=== PATIENT | female | born 1935 | race Asian ===

== ENCOUNTER 2019-04-13 05:08 | Inpatient (IN) | payer OTHER ==
[2019-04-13] MEDS ORDERED: ALBUTEROL SO4 0.083% IH SOL 2.5 MG/3 ML VIAL.NEB. NEB ONE (06:11)
[2019-04-13] MEDS ORDERED: ALBUTEROL SO4 0.042% IH SOL 1.25 MG/3 ML VIAL.NEB NEB ONE (06:11)
[2019-04-13 06:51] LABS: BASO % 1.1 % (0-2.0); EOS % 3.4 % (0-4.5); HEMATOCRIT 34.3 % (32.4-45.2); HEMOGLOBIN 11.8 GM/dL (10.7-15.3); LYMPH % 10.7 % (8-40); MCH 30.6 pg (25.7-33.7); MCHC 34.4 g/dl (32.0-36.0); MEAN PLT VOLUME 7.9 fl (7.5-11.1); NEUT % 71.8 % (42.8-82.8); PLATELET COUNT 270 K/MM3 (134-434); RBC 3.86 M/mm3 (3.60-5.2); RDW 12.7 % (11.6-15.6)
--- NOTE | 2019-04-13 07:10 | PDOC ---
Attending Attestation - Resident Resident Name: CuellarElo - ED Attending Attestation I have performed the following: I have examined & evaluated the patient, The case was reviewed & discussed with the resident, I agree w/resident's findings & plan, Exceptions are as noted - HPI HPI: 04/13/19 07:59 83yo female with hx of lung ca s/p resection in remission, copd with sob and cough. Recent travel to [place]. Pt dx with a DVT to R calf on monday - not on anticoag. States R leg pain is worse, now with increasing sob. Using her inhalers at home - spiriva, breo, albuterol nebs/inhaler. States cough started monday - her daughter started her on azithromycin for the cough on monday. Worsening sob this AM. No cp. Woke up at 4am unable to breath. No LE edema. No abd pain. No f/c. No rhinorrhea or sore throat. No n/v/d. No other complaints. - Physicial Exam PE: 04/13/19 08:04 Gen: aaox3, tachypnea heart: +s1s2 tachy lungs: coarse bs, wheezing diffusely abd: soft, nt/nd +bs ext: R calf ttp, no edema, pedal pulses intact skin: no rashes, no cellulitis - Medical Decision Making 04/13/19 07:10 I, Dr. Shruthi Bateman, DO, attest that this document has been prepared under my direction and personally reviewed by me in its entirety. I further attest, that it accurately reflects all work, treatment, procedures and medical decision -making performed by me. 04/13/19 08:05 a/p: 83yo female with copd/hx of lung ca with cough/sob -recent dvt dx- in calf, will repeat LE doppler and order CTA chest -eval for pna vs pe -will send labs -nebs, steroids for copd -will monitor and reassess -pt with mild tachy and tachypnea -PMD Dr. Oneill with Dr. Brian Pop 04/13/19 09:43 no PE no PNA will place in obs for a copd exacerbation 04/13/19 11:24 resident discussed the case with Dr. Benton who accepts pt to service tylenol given for pain Heart Score/ECG Review - ECG Intrepretation Comment:: 04/13/19 09:44 sinus at 81, t wave flattening diffusely, t wave inversions anterior leads, nl axis, lvh, no acute st changes
--- NOTE | 2019-04-13 07:12 | PDOC ---
History of Present Illness - General Chief Complaint: Shortness of Breath Stated Complaint: DIFFICULTY BREATHING Time Seen by Provider: 04/13/19 07:03 Past History - Past Medical History Allergies/Adverse Reactions: Allergies Allergy/AdvReac Type Severity Reaction Status Date / Time No Known Allergies Allergy Verified 04/13/19 05:10 Home Medications: Ambulatory Orders Aspirin [ASA -] 81 mg PO DAILY 01/04/16 Budesonide/Formeterol Fumarate [SYMBICORT 160/4.5mcg -] 1 inh PO DAILY #1 inhaler 01/12/16 Levothyroxine [Synthroid -] 50 mcg PO DAILY@0700 #30 tablet 01/12/16 Losartan Potassium [Cozaar -] 50 mg PO DAILY #30 tablet 01/12/16 Rosuvastatin [Crestor -] 10 mg PO HS #30 tablet 01/12/16 Ranitidine HCl [Zantac] 150 mg PO PRN PRN 09/01/16 Tiotropium [place] [Spiriva] 1 inh PO PRN PRN 09/01/16 Oxycodone HCl/Acetaminophen [Percocet 5-325 mg Tablet] 1 tab PO Q6H PRN #30 tablet MDD 6 09/02/16 Hydrochlorothiazide [Hctz -] 12.5 mg PO DAILY 04/13/19 Asthma: Yes COPD: Yes ("LEFT PARTIAL LUNG REMOVAL) Diabetes: Yes HTN: Yes Hypercholesterolemia: Yes Thyroid Disease: Yes - Surgical History Lung Surgery: Yes (LEFT-PARTIAL REMOVAL) - Immunization History Td Vaccination: Yes TDAP Vaccination: Yes Immunization Up to Date: Yes - Suicide/Smoking/Psychosocial Hx Smoking History: Never smoked Have you smoked in the past 12 months: No Information on smoking cessation initiated: No Hx Alcohol Use: No Drug/Substance Use Hx: No Substance Use Type: None Hx Substance Use Treatment: No *Physical Exam - Vital Signs Last Vital Signs Temp Pulse Resp BP Pulse Ox 98.3 F 85 22 H 155/85 95 04/13/19 05:23 04/13/19 05:23 04/13/19 05:23 04/13/19 05:23 04/13/19 05:23 ED Treatment Course - LABORATORY CBC & Chemistry Diagram: 04/13/19 06:16 04/13/19 06:16 - ADDITIONAL ORDERS Additional order review: 04/13/19 06:16 RBC 3.86 MCV 89.0 MCHC 34.4 RDW 12.7 MPV 7.9 Neutrophils % 71.8 Lymphocytes % 10.7 D Monocytes % 13.0 H D Eosinophils % 3.4 D Basophils % 1.1 D - Medications Given in the ED: ED Medications Discontinued Medications Generic Name Dose Route Start Last Admin Trade Name Freq PRN Reason Stop Dose Admin Albuterol Sulfate 2 amp 04/13/19 06:11 04/13/19 06:16 Ventolin 0.042trength) - NEB 04/13/19 06:12 2 amp ONCE ONE Administration *DC/Admit/Observation/Transfer - Referrals Referrals: Brian Pop MD [Primary Care Provider] - - Patient Instructions - Post Discharge Activity
--- NOTE | 2019-04-13 07:14 | PDOC ---
History of Present Illness - General Chief Complaint: Shortness of Breath Stated Complaint: DIFFICULTY BREATHING Time Seen by Provider: 04/13/19 07:03 History Source: Patient Exam Limitations: No Limitations - History of Present Illness Initial Comments: 04/13/19 07:04 83YOF with h/o lung CA (s/p thoracotomy with LLL lobectomy), COPD (on 3 LPM home O2 prn), frequent bronchitis/PNA, CAD, HTN, HLD, GI bleed, TIA, and cholecystectomy who p/w SOB, cough, and RLE cramping/swelling. She had a flight back to [place] from [place] about 11 days ago, within hours she had the onset of RLE swelling/cramping, went to the hospital and had a Doppler which showed a DVT. She started having the cough and SOB four days ago, accompanied by substernal chest pressure only when she coughs. She denies any additional chest or abdominal pain. Started a Z-pack on Monday without improvement since then. Denies f/c/n/v/d/c, lightheadedness, dizziness, YAN, neck pain, back pain, n/t/w focally, etc. Says this feels similar to her prior flares of bronchitis/PNA but not exactly the same. Past History - Past Medical History Allergies/Adverse Reactions: Allergies Allergy/AdvReac Type Severity Reaction Status Date / Time No Known Allergies Allergy Verified 04/13/19 05:10 Home Medications: Ambulatory Orders Aspirin [ASA -] 81 mg PO DAILY 01/04/16 Budesonide/Formeterol Fumarate [SYMBICORT 160/4.5mcg -] 1 inh PO DAILY #1 inhaler 01/12/16 Levothyroxine [Synthroid -] 50 mcg PO DAILY@0700 #30 tablet 01/12/16 Losartan Potassium [Cozaar -] 50 mg PO DAILY #30 tablet 01/12/16 Rosuvastatin [Crestor -] 10 mg PO HS #30 tablet 01/12/16 Ranitidine HCl [Zantac] 150 mg PO PRN PRN 09/01/16 Tiotropium [place] [Spiriva] 1 inh PO PRN PRN 09/01/16 Oxycodone HCl/Acetaminophen [Percocet 5-325 mg Tablet] 1 tab PO Q6H PRN #30 tablet MDD 6 09/02/16 Hydrochlorothiazide [Hctz -] 12.5 mg PO DAILY 04/13/19 Asthma: Yes COPD: Yes ("LEFT PARTIAL LUNG REMOVAL) Diabetes: Yes HTN: Yes Hypercholesterolemia: Yes Thyroid Disease: Yes - Surgical History Lung Surgery: Yes (LEFT-PARTIAL REMOVAL) - Immunization History Td Vaccination: Yes TDAP Vaccination: Yes Immunization Up to Date: Yes - Suicide/Smoking/Psychosocial Hx Smoking History: Never smoked Have you smoked in the past 12 months: No Information on smoking cessation initiated: No Hx Alcohol Use: No Drug/Substance Use Hx: No Substance Use Type: None Hx Substance Use Treatment: No Review of Systems - Review of Systems Able to Perform ROS?: Yes Comments:: 04/13/19 07:33 GEN: malaise, no fever, chills, generalized weakness, or weight change HEENT: no ear pain, sore throat, vision change, or eye pain CV: chest pressure, no palpitations, lightheadedness, syncope, leg edema RESP: cough, wheezing, SOB GI: no abdominal pain, nausea, vomiting, diarrhea, constipation, or white/black/ bloody stool : no dysuria, hematuria, incontinence, retention, bleeding, or discharge MSK: no neck/back pain, muscle weakness/pain, or joint swelling/pain NEURO: no headache, seizure, vertigo, numbness, tingling, or focal weakness PSYCH: no substance use, no behavior change SKIN: no jaundice, no rash ROS otherwise negative except as noted in HPI *Physical Exam - Vital Signs Last Vital Signs Temp Pulse Resp BP Pulse Ox 98.3 F 85 22 H 155/85 95 04/13/19 05:23 04/13/19 05:23 04/13/19 05:23 04/13/19 05:23 04/13/19 05:23 - Physical Exam Comments: 04/13/19 07:34 GENERAL: nontoxic appearing, A/Ox4, no distress, answers questions appropriately , tachypneic, occasional cough which sounds productive HEENT: PERRLA, EOMI, moist mucous membranes NECK/BACK: no midline ttp, no spinal stepoff or deformity, no hematoma, full ROM , neck supple CARDIOVASCULAR: slightly rapid regular rate, normal S1S2, 1/6 systolic murmur, strong peripheral pulses, capillary refill <2 seconds, extremities wwp, 2+ RLE pitting edema and 1+ LLE pitting edema LUNGS/RESPIRATORY: mild respiratory distress, b/l diffuse crackles, b/l expiratory wheezes GI/ABDOMEN: symmetric [id number], normoactive BS, soft, no ttp, no midline pulsatile masses : no CVA tenderness EXTREMITIES: no muscle atrophy, no acute deformity, no palpable cord, no calf tenderness SKIN: warm and dry, no pallor, no jaundice, no rash, no bruising, no skin breakdown, no cuts, no lesions NEUROLOGICAL: GCS 15, CN II-XII grossly intact, 5/5 strength proximally and distally, no facial droop ED Treatment Course - LABORATORY CBC & Chemistry Diagram: 04/13/19 06:16 04/13/19 06:16 - ADDITIONAL ORDERS Additional order review: 04/13/19 06:16 RBC 3.86 MCV 89.0 MCHC 34.4 RDW 12.7 MPV 7.9 Neutrophils % 71.8 Lymphocytes % 10.7 D Monocytes % 13.0 H D Eosinophils % 3.4 D Basophils % 1.1 D - Medications Given in the ED: ED Medications Discontinued Medications Generic Name Dose Route Start Last Admin Trade Name Freq PRN Reason Stop Dose Admin Albuterol Sulfate 2 amp 04/13/19 06:11 04/13/19 06:16 Ventolin 0.042trength) - NEB 04/13/19 06:12 2 amp ONCE ONE Administration Medical Decision Making - Medical Decision Making 04/13/19 07:29 Pt p/w SOB, cough, chest discomfort, and RLE pain/swelling with DVT detected via Doppler on 04/03/19. Initial Vital Signs Temp Pulse Resp BP Pulse Ox 98.3 F 85 22 H 155/85 95 04/13/19 05:23 04/13/19 05:23 04/13/19 05:23 04/13/19 05:23 04/13/19 05:23 Exam: As noted in Physical Exam section. Patient tachy to 100 at the time of my exam. DDX IBNLT: most likely PNA, bronchitis, viral URI (e.g. influenza), COPD exacerbation, CHF, other lung disease. Also a very real possibility is PE, and given her recently diagnosed DVT this must be ruled out. Also less likely but considered are ACS, pericarditis, etc. W/U ordered: Chest CTA CXR EKG Labs as noted below [place] ordered: [facility] Solumedrol Prashant EKG: Reviewed; results as noted in ECG Review section. Laboratory Tests 04/13/19 04/13/19 06:16 06:16 WBC 6.0 RBC 3.86 Hgb 11.8 Hct 34.3 MCV 89.0 MCH 30.6 MCHC 34.4 RDW 12.7 Plt Count 270 MPV 7.9 Absolute Neuts (auto) 4.3 Neutrophils % 71.8 Lymphocytes % 10.7 D Monocytes % 13.0 H D Eosinophils % 3.4 D Basophils % 1.1 D Nucleated RBC % 0 Sodium 135 L Potassium 3.9 Chloride 100 Carbon Dioxide 28 Anion Gap 7 L BUN 13 Creatinine 0.9 Est GFR (CKD-EPI)AfAm 69.50 Est GFR (CKD-EPI)NonAf 59.96 Random Glucose 116 H Calcium 8.4 L Total Bilirubin 0.8 AST 23 ALT 23 Alkaline Phosphatase 102 Creatine Kinase 174 Creatine Kinase Index 0.8 CK-MB (CK-2) 1.4 Troponin I < 0.02 B-Natriuretic Peptide 318.3 Total Protein 6.[address]/CHEST CTA Chest CT angiography Clinical information: dyspnea, cough; known DVT; evaluate for pulmonary embolism Multiplanar imaging was performed following the intravenous administration of nonionic contrast. No discrete pulmonary embolus is noted. There is no evidence of pneumothorax, infiltrate or pleural effusion. No definite interval change is noted in comparison to a prior CT exam of 09/03/2018. Status post left thoracotomy with somewhat diminished volume of the left chest. There is mild elevation of the left diaphragm. A stable noncalcified 0.4 cm subpleural nodule is noted within the right lower lobe laterally ( transaxial image 46). This finding also appears unchanged in comparison to a CT study of 08/18/2016. No discrete lymphadenopathy is noted. There is no definite cardiac enlargement. No pericardial effusion is seen. The trachea and central bronchi appear unremarkable. There is no aortic aneurysm. The osseous structures demonstrate no gross evidence of acute pathology or disease. Impression: No CT evidence of pulmonary embolism or other acute intrathoracic pathology. Status post left thoracotomy. Stable 0.4 cm right lower lobe pulmonary nodule. RAD/CHEST X-RAY PORTABLE* Chest: Shortness of breath. A single AP view of the chest has been submitted. There are clear lungs, prominent knob, normal hilar and enlarged heart. There is an elevated left hemidiaphragm. There is a sharp. The bones and soft tissues are intact. Correlation recommended. Please see CT report from 04/13/2019 at 0827 hours. US/DUPLEX VASCUL US-2LEGS Bilateral lower extremity venous ultrasound Clinical information given: RLE pain/swelling, recent flight, dyspnea; known DVT on 2018 The exam was performed utilizing compression, grayscale, color flow and doppler sonography. No prior venous imaging studies are available at this facility for direct comparison. The current exam demonstrates no sonographic evidence of deep vein thrombosis. If there is clinical concern for possible isolated calf DVT or if there is a clinical diagnosis of uncomplicated superficial thrombophlebitis, then correlation with close follow up sonography is suggested. There is no obvious popliteal cyst. Impression: No DVT is identified involving either leg. Correlate with the results of prior imaging studies if available from a different facility. The Pt is unsafe for discharge at this time given continued SOB and high-risk history. They require further hospital observation, workup, and treatment. Call placed to Dr. Benton (admitting for [facility] Blank Decision to Admit order is placed per ED protocol. I spoke with Dr. Benton, in agreement Pt to be admitted, full admission to med/ surg. Decision to Admit order corrected with Dr. Benton's name. Vital Signs Temperature 98.9 F 04/13/19 12:03 Pulse Rate 86 04/13/19 12:03 Respiratory Rate 20 04/13/19 12:03 Blood Pressure 133/67 04/13/19 12:03 O2 Sat by Pulse Oximetry (%) 99 04/13/19 12:03 *DC/Admit/Observation/Transfer Diagnosis at time of Disposition: SOB (shortness of breath), Cough - Discharge Dispostion Condition at time of disposition: Guarded Decision to Admit order: Yes - Referrals - Patient Instructions - Post Discharge Activity
[2019-04-13 07:26] LABS: ALBUMIN 3.5 g/dl (3.4-5.0); ALK PHOS 102 U/L (45-117); ANION GAP 7 MMOL/L (8-16); BILIRUBIN,TOTAL 0.8 mg/dL (0.2-1); BLOOD UREA NITROGEN 13 mg/dL (7-18); CALCIUM 8.4 mg/dL (8.5-10.1); CHLORIDE 100 mmol/L (98-107); CO2 28 mmol/L (21-32); CREATININE 0.9 mg/dL (0.55-1.3); GLUCOSE,RANDOM 116 mg/dL (74-106); POTASSIUM 3.9 mmol/L (3.5-5.1); SGOT/AST 23 U/L (15-37); SGPT/ALT 23 U/L (13-61); SODIUM 135 mmol/L (136-145); TOT PROT 6.6 g/dl (6.4-8.2)
[2019-04-13] MEDS ORDERED: ACETAMINOPHEN 1000 MG/100 ML VIAL (NON FORMULARY) IVPB ONE (11:24)
[2019-04-13] MEDS ORDERED: SODIUM CHLORIDE 0.9% 1000 ML INFUS.BAG IV ONE (11:24)
[2019-04-13] MEDS ORDERED: methylPREDNISolone NA SUCC 125 MG/2 ML VIAL IVPB ONE (11:24)
[2019-04-13] MEDS ORDERED: ACETAMINOPHEN INJECTION 100 ML IVPB ONE (11:27)
[2019-04-13] MEDS ORDERED: methylPREDNISolone NA SUCC 125 MG/2 ML VIAL ONE (11:28)
[2019-04-13] MEDS ORDERED: ALBUTEROL SO4 2.5/IPRATROPIUM 0.5 INH SOL 3 ML VIAL.NEB. NEB ONE ×2 (11:29→11:32)
[2019-04-13 11:55] LABS: N-TERMINAL BNP 318.3 pg/ml (5-450)
--- NOTE | 2019-04-13 15:28 | EKG ---
Test Reason : Blood Pressure : / mmHG Vent. Rate : 081 BPM Atrial Rate : 081 BPM P-R Int : 132 ms QRS Dur : 072 ms QT Int : 400 ms P-R-T Axes : 064 -03 007 degrees QTc Int : 464 ms NORMAL SINUS RHYTHM POSSIBLE LEFT ATRIAL ENLARGEMENT LEFT VENTRICULAR HYPERTROPHY T WAVE ABNORMALITY, CONSIDER ANTERIOR ISCHEMIA ABNORMAL ECG WHEN COMPARED WITH ECG OF 04-JAN-2016 18:49, NO SIGNIFICANT CHANGE WAS FOUND Confirmed by MD Devonte, Chris ([id number]) on 04/13/2019 3:28:26 PM Referred By: Confirmed By:Chris Whitney MD
[2019-04-13] MEDS ORDERED: PATIENT'S OWN MEDICATION (NON-FORMULARY) (Tiotropium Bromide [Spiriva] 1 INH) PO PRN (19:02)
[2019-04-13] MEDS: HEPARIN NA (PORCINE) 5,000 UNITS/ML 1ML VIAL SQ SCH (21:27)
[2019-04-13] MEDS: ROSUVASTATIN CA 10 MG TABLET (FP) PO SCH (21:27)
[2019-04-13] MEDS: ASPIRIN 81 MG CHEWABLE TABLETS PO SCH (21:28)
[2019-04-13] MEDS: ALBUTEROL SO4 2.5/IPRATROPIUM 0.5 INH SOL 3 ML VIAL.NEB. NEB PRN (22:05)
--- NOTE | 2019-04-13 23:41 | HP ---
Admitting History and Physical - Past Medical History [employer]: Yes: TIA (10 years ago). No: Seizure Cardiovascular: Yes: CAD, HTN, Hyperlipdemia. No: NC Pulmonary: Yes: Cancer, COPD, O2 Dependent Hepatobiliary: Yes: Cholelithiasis, Cholecystitis ...: No Endocrine: No: Diabetes Mellitus - Past Surgical History Past Surgical History: Yes: Cataract Removal, Thoracotomy (left lower lobectomy) - Smoking History Smoking history: Never smoked Have you smoked in the past 12 months: No - Alcohol/Substance Use Hx Alcohol Use: No History of Substance Use: reports: None - Social History ADL: Independent History of Recent Travel: Yes (returned from [place] end of July) Home Medications - Allergies Allergies/Adverse Reactions: Allergies Allergy/AdvReac Type Severity Reaction Status Date / Time No Known Allergies Allergy Verified 04/13/19 05:10 - Home Medications Home Medications: Ambulatory Orders Aspirin [ASA -] 81 mg PO DAILY 01/04/16 Budesonide/Formeterol Fumarate [SYMBICORT 160/4.5mcg -] 1 inh PO DAILY #1 inhaler 01/12/16 Levothyroxine [Synthroid -] 50 mcg PO DAILY@0700 #30 tablet 01/12/16 Losartan Potassium [Cozaar -] 50 mg PO DAILY #30 tablet 01/12/16 Rosuvastatin [Crestor -] 10 mg PO HS #30 tablet 01/12/16 Ranitidine HCl [Zantac] 150 mg PO PRN PRN 09/01/16 Tiotropium [place] [Spiriva] 1 inh PO PRN PRN 09/01/16 Oxycodone HCl/Acetaminophen [Percocet 5-325 mg Tablet] 1 tab PO Q6H PRN #30 tablet MDD 6 09/02/16 Hydrochlorothiazide [Hctz -] 12.5 mg PO DAILY 04/13/19 Family Disease History - Family Disease History Family Disease History: Diabetes: Daughter, Heart Disease: Daughter, CA: Sister Physical Examination Vital Signs: Vital Signs Temperature 97.7 F 04/13/19 22:17 Pulse Rate 89 04/13/19 22:17 Respiratory Rate 20 04/13/19 22:17 Blood Pressure 148/85 04/13/19 22:17 O2 Sat by Pulse Oximetry (%) 98 04/13/19 21:00 Labs: CBC, BMP 04/13/19 06:16 04/13/19 06:16
[2019-04-14] MEDS: BUDESONIDE/FORMETEROL FUMARATE 160/4.5 mcg INHALER IH SCH ×3 (00:23→21:40)
[2019-04-14] MEDS: methylPREDNISolone NA SUCC 40 MG/1 ML VIAL IVPUSH SCH ×3 (01:50→17:00)
[2019-04-14] MEDS: LEVOTHYROXINE NA 50 MCG TABLET (FP) PO SCH (06:12)
--- NOTE | 2019-04-14 07:57 | CON.CARD ---
Consult Consult Specialty:: Cardiology (Coverage for Dr. Capone and Wilma) Referred by:: Dr. Benton Reason for Consultation:: Cardiac evaluation - History of Present Illness Chief Complaint: Shortness of breath History of Present Illness: Patient is an 83 year old female with underlying history of lung CA s/p lobectomy and radiation therapy 10 years ago and in remission, underlying COPD who presents with shortness of breath and cough. She also has history of HTN, hypercholesterolemia, ? CAD and hypothyroidism. She recently traveled from [place] and thus she had Chest CT and LE Doppler this admission to rule out PTE and DVT. Chest CT was negative for pulmonary embolism and LE Doppler was also negative for DVT. ER Medical record indicates diagnosis of DVT in the right calf last week, but when asked she denies any history of DVT. Currently, she denies chest pain or palpitations. She denies paroxysmal nocturnal dyspnea or orthopnea. She denies fever or chills. She denies nausea, vomiting, diarrhea or abdominal pain. She denies headache or lightheadedness. - History Source History Provided By: Patient, Medical Record Limitations to Obtaining History: No Limitations - Past Medical History [employer]: Yes: TIA (10 years ago) Cardio/Vascular: Yes: CAD, HTN, Hyperlipdemia Pulmonary: Yes: Cancer, COPD, O2 Dependent Hepatobiliary: Yes: Cholelithiasis, Cholecystitis Endocrine: No: Diabetes Mellitus - Past Surgical History Past Surgical History: Yes: Thoracotomy (left lower lobectomy) - Alcohol/Substance Use Hx Alcohol Use: No History of Substance Use: reports: None - Smoking History Smoking history: Never smoked Have you smoked in the past 12 months: No - Social History ADL: Independent History of Recent Travel: Yes (returned from [place] end of July) Home Medications - Allergies Allergies/Adverse Reactions: Allergies Allergy/AdvReac Type Severity Reaction Status Date / Time No Known Allergies Allergy Verified 04/13/19 05:10 - Home Medications Home Medications: Ambulatory Orders Aspirin [ASA -] 81 mg PO DAILY 01/04/16 Budesonide/Formeterol Fumarate [SYMBICORT 160/4.5mcg -] 1 inh PO DAILY #1 inhaler 01/12/16 Levothyroxine [Synthroid -] 50 mcg PO DAILY@0700 #30 tablet 01/12/16 Losartan Potassium [Cozaar -] 50 mg PO DAILY #30 tablet 01/12/16 Rosuvastatin [Crestor -] 10 mg PO HS #30 tablet 01/12/16 Ranitidine HCl [Zantac] 150 mg PO PRN PRN 09/01/16 Tiotropium [place] [Spiriva] 1 inh PO PRN PRN 09/01/16 Oxycodone HCl/Acetaminophen [Percocet 5-325 mg Tablet] 1 tab PO Q6H PRN #30 tablet MDD 6 09/02/16 Hydrochlorothiazide [Hctz -] 12.5 mg PO DAILY 04/13/19 hydrALAZINE HCL tab PO 04/14/19 Family Disease History - Family Disease History Family Disease History: Diabetes: Daughter, Heart Disease: Daughter, CA: Sister (Breast CA) Other Family History: FH of HTN Review of Systems - Review of Systems Constitutional: denies: Chills, Fever Cardiovascular: reports: Shortness of Breath. denies: Chest Pain, Palpitations Respiratory: reports: Cough, SOB, SOB on Exertion, Wheezing. denies: Hemoptysis , Orthopnea, PND Gastrointestinal: denies: Abdominal Pain, Constipation, Diarrhea, Melena, Nausea , Rectal Bleeding, Vomiting Genitourinary: denies: Dysuria, Hematuria Musculoskeletal: denies: Back Pain, Joint Pain Neurological: denies: Dizziness, Headache, Seizure, Syncope Vital Signs: Vital Signs Temperature 98.2 F 04/14/19 06:46 Pulse Rate 83 04/14/19 06:46 Respiratory Rate 20 04/14/19 06:46 Blood Pressure 137/78 04/14/19 06:46 O2 Sat by Pulse Oximetry (%) 98 04/13/19 21:00 Eyes: Yes: PERRL HENT: Yes: Atraumatic Neck: Yes: Supple Respiratory: Yes: Diminished, SOB, Wheezes Gastrointestinal: Yes: Normal Bowel Sounds, Soft. No: Tenderness Cardiovascular: Yes: Regular Rate and Rhythm JVD: No Carotid Bruit: No PMI: Non-Displaced Heart Sounds: Yes: S1, S2 Edema: No - Other Data Labs, Other Data: CBC, BMP 04/13/19 06:16 04/13/19 06:16 Troponin, BNP 04/13/19 04/13/19 06:16 21:50 Troponin I < 0.02 < 0.02 B-Natriuretic Peptide 318.3 Laboratory Results - last 24 hr 04/13/19 04/13/19 06:16 21:50 Sodium 135 L Potassium 3.9 Chloride 100 Carbon Dioxide 28 Anion Gap 7 L BUN 13 Creatinine 0.9 Est GFR (CKD-EPI)AfAm 69.50 Est GFR (CKD-EPI)NonAf 59.96 Random Glucose 116 H Calcium 8.4 L Total Bilirubin 0.8 AST 23 ALT 23 Alkaline Phosphatase 102 Creatine Kinase 174 245 H Creatine Kinase Index 0.8 0.7 CK-MB (CK-2) 1.4 1.9 Troponin I < 0.02 < 0.02 B-Natriuretic Peptide 318.3 Total Protein 6.6 Albumin 3.5 NSR T abnormality, anterior ischemia Problem List - Problems (1) CAD (coronary artery disease) Code(s): I25.10 - ATHSCL HEART DISEASE OF [place] CORONARY ARTERY W/O ANG PCTRS (2) COPD exacerbation Code(s): J44.1 - CHRONIC OBSTRUCTIVE PULMONARY DISEASE W (ACUTE) EXACERBATION (3) Diastolic CHF Code(s): I50.30 - UNSPECIFIED DIASTOLIC (CONGESTIVE) HEART FAILURE (4) H/O: lung cancer Code(s): Z85.118 - PERSONAL HISTORY OF MALIGNANT NEOPLASM OF BRONCHUS AND LUNG (5) HLD (hyperlipidemia) Code(s): E78.5 - HYPERLIPIDEMIA, UNSPECIFIED Qualifiers: Hyperlipidemia type: pure hypercholesterolemia Qualified Code(s): E78.00 - Pure hypercholesterolemia, unspecified; E78.0 - Pure hypercholesterolemia (6) HTN (hypertension) Code(s): I10 - ESSENTIAL (PRIMARY) HYPERTENSION Qualifiers: Hypertension type: essential hypertension Qualified Code(s): I10 - Essential (primary) hypertension (7) Hypothyroidism Code(s): E03.9 - HYPOTHYROIDISM, UNSPECIFIED Assessment/Plan 1. Clinical presentation suggests COPD exacerbation 2. History of lung CA s/p lobectomy 3. HTN 4. Hypercholesterolemia 5. Hypothyroidism PLAN: 1. Troponins are negative 2. Work up rules out DVT or PE 3. Continue steroid taper, bronchodilators, O2 as needed 4. Continue Losartan 50 mg QD 5. Continue Rosuvastatin 10 mg QD 6. ASA 81 mg QD 7. DVT prophylaxis 8. Pulmonary follow up Further plans are to follow Donald Ortiz MD
[2019-04-14 08:55] LABS: BASO % 0.1 % (0-2.0); HEMATOCRIT 35.8 % (32.4-45.2); LYMPH % 7.8 % (8-40); MCH 30.2 pg (25.7-33.7); MCHC 33.4 g/dl (32.0-36.0); MEAN CELL VOLUME 90.5 fl (80-96); MEAN PLT VOLUME 7.8 fl (7.5-11.1); MONO % 1.7 % (3.8-10.2); NEUT % 90.4 % (42.8-82.8); PLATELET COUNT 266 K/MM3 (134-434); RBC 3.96 M/mm3 (3.60-5.2); RDW 13.2 % (11.6-15.6); WHITE BLOOD COUNT 6.8 K/mm3 (4.0-10.0)
[2019-04-14 09:24] LABS: ALBUMIN 3.4 g/dl (3.4-5.0); BILIRUBIN,TOTAL 0.7 mg/dL (0.2-1); CALCIUM 8.4 mg/dL (8.5-10.1); CREATININE 0.8 mg/dL (0.55-1.3); TOT PROT 6.5 g/dl (6.4-8.2)
[2019-04-14] MEDS ORDERED: PATIENT'S OWN MEDICATION (NON-FORMULARY) (Tiotropium Bromide [Spiriva] 1 INH) PO SCH (10:00)
[2019-04-14] MEDS ORDERED: BUDESONIDE/FORMETEROL FUMARATE 160/4.5 mcg INHALER IH SCH ×2 (10:00)
[2019-04-14] MEDS: LOSARTAN POTASSIUM 50 MG TABLET (FP) PO SCH (10:09)
[2019-04-14] MEDS: ASPIRIN 81 MG CHEWABLE TABLETS PO SCH (10:09)
[2019-04-14] MEDS: FUROSEMIDE 40 MG/4 ML INJECTABLE VIAL IVPUSH SCH (10:09)
[2019-04-14] MEDS: TIOTROPIUM BROMIDE 2.5 MCG (SPIRIVA) RESPIMAT INHALER IH SCH (10:10)
[2019-04-14] MEDS: HEPARIN NA (PORCINE) 5,000 UNITS/ML 1ML VIAL SQ SCH ×2 (10:11→21:40)
--- NOTE | 2019-04-14 10:33 | CON.PULM ---
Consult Consult Specialty:: PULM/CCM Referred by:: CRISTIANE Reason for Consultation:: SOB - History of Present Illness Chief Complaint: SOB History of Present Illness: 83 F, known to our service from pervious admissions and outpatient follow up. Stage I NSCLC of the LLL that was successfully resected about 10 years ago. Did receive adjuvant RT. Known COPD maintained on Breo and Spiriva. Increased congested cough and JOHNS since Monday. Recent travel from [place]. Relatives visiting from [place] but no specific sick contacts. No hemoptysis or night sweats. Took a Zpack starting on Monday. CTA: no PE. Stable 4 mm subpleural nodule in the RLL stable sy=vik 08/18/2016. 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 No: Asthma, Pulmonary Embolus, Pulmonary Fibrosis, Sleep Apnea Hepatobiliary: Yes: Cholelithiasis, Cholecystitis ...: No Endocrine: No: Diabetes Mellitus - Past Surgical History Past Surgical History: Yes: Thoracotomy (left lower lobectomy) - Alcohol/Substance Use Hx Alcohol Use: No History of Substance Use: reports: None - Smoking History Smoking history: Never smoked Have you smoked in the past 12 months: No - Social History ADL: Independent History of Recent Travel: Yes (returned from [place] end of July) Home Medications - Allergies Allergies/Adverse Reactions: Allergies Allergy/AdvReac Type Severity Reaction Status Date / Time No Known Allergies Allergy Verified 04/13/19 05:10 - Home Medications Home Medications: Ambulatory Orders Aspirin [ASA -] 81 mg PO DAILY 01/04/16 Budesonide/Formeterol Fumarate [SYMBICORT 160/4.5mcg -] 1 inh PO DAILY #1 inhaler 01/12/16 Levothyroxine [Synthroid -] 50 mcg PO DAILY@0700 #30 tablet 01/12/16 Losartan Potassium [Cozaar -] 50 mg PO DAILY #30 tablet 01/12/16 Rosuvastatin [Crestor -] 10 mg PO HS #30 tablet 01/12/16 Ranitidine HCl [Zantac] 150 mg PO PRN PRN 09/01/16 Tiotropium [place] [Spiriva] 1 inh PO PRN PRN 10/13/16 Oxycodone HCl/Acetaminophen [Percocet 5-325 mg Tablet] 1 tab PO Q6H PRN #30 tablet MDD 6 09/02/16 Hydrochlorothiazide [Hctz -] 12.5 mg PO DAILY 04/13/19 hydrALAZINE HCL tab PO 04/14/19 Family Disease History - Family Disease History Family Disease History: Diabetes: Daughter, Heart Disease: Daughter, CA: Sister (Breast CA) Other Family History: FH of HTN Review of Systems - Review of Systems Constitutional: reports: Malaise. denies: Chills, Fever, Night Sweats, Unintentional Wgt. Loss Eyes: reports: No Symptoms HENT: reports: No Symptoms Neck: reports: No Symptoms Cardiovascular: reports: Shortness of Breath. denies: Chest Pain, Edema, Palpitations Respiratory: reports: Cough, SOB, SOB on Exertion, Wheezing. denies: Hemoptysis , Snoring Gastrointestinal: reports: No Symptoms Genitourinary: reports: No Symptoms Breasts: reports: No Symptoms Reported Musculoskeletal: reports: No Symptoms Integumentary: reports: No Symptoms Neurological: reports: No Symptoms Endocrine: reports: No Symptoms Hematology/Lymphatic: reports: No Symptoms Psychiatric: reports: No Symptoms Physical Exam Vital Sings: Vital Signs Temperature 98.2 F 04/14/19 06:46 Pulse Rate 83 04/14/19 06:46 Respiratory Rate 20 04/14/19 06:46 Blood Pressure 137/78 04/14/19 06:46 O2 Sat by Pulse Oximetry (%) 98 04/13/19 21:00 Constitutional: Yes: No Distress, Calm Eyes: Yes: Conjunctiva Clear, EOM Intact HENT: Yes: Atraumatic, Normocephalic Neck: Yes: Supple, Trachea Midline Cardiovascular: Yes: Regular Rate and Rhythm Respiratory: Yes: Cough, Diminished, Rhonchi, SOB on Exertion, Wheezes. No: Accessory Muscle Use, Rales, SOB, Stridor, Tachypnea ...Inspection: Yes: WNL ...Clubbing: No Gastrointestinal: Yes: Normal Bowel Sounds, Soft Renal/: Yes: WNL Musculoskeletal: Yes: WNL Extremities: Yes: WNL Edema: No Peripheral Pulses WNL: Yes Integumentary: Yes: WNL Neurological: Yes: WNL, Alert, Oriented ...Motor Strength: WNL Psychiatric: Yes: WNL, Alert, Oriented Labs: CBC, BMP 04/14/19 08:00 04/14/19 08:00 Imaging - Results Chest X-ray: Report Reviewed, Image Reviewed Cat Scan: Report Reviewed, Image Reviewed Problem List - Problems (1) Lung nodule < 6cm on CT Code(s): R91.1 - SOLITARY PULMONARY NODULE (2) Cough Code(s): R05 - COUGH (3) Hypothyroidism Code(s): E03.9 - HYPOTHYROIDISM, UNSPECIFIED (4) SOB (shortness of breath) Code(s): R06.02 - SHORTNESS OF BREATH (5) CAD (coronary artery disease) Code(s): I25.10 - ATHSCL HEART DISEASE OF [place] CORONARY ARTERY W/O ANG PCTRS (6) COPD exacerbation Code(s): J44.1 - CHRONIC OBSTRUCTIVE PULMONARY DISEASE W (ACUTE) EXACERBATION (7) Diabetes Code(s): E11.9 - TYPE 2 DIABETES MELLITUS WITHOUT COMPLICATIONS (8) H/O: lung cancer Code(s): Z85.118 - PERSONAL HISTORY OF MALIGNANT NEOPLASM OF BRONCHUS AND LUNG (9) HLD (hyperlipidemia) Code(s): E78.5 - HYPERLIPIDEMIA, UNSPECIFIED Qualifiers: Hyperlipidemia type: pure hypercholesterolemia Qualified Code(s): E78.00 - Pure hypercholesterolemia, unspecified; E78.0 - Pure hypercholesterolemia (10) HTN (hypertension) Code(s): I10 - ESSENTIAL (PRIMARY) HYPERTENSION Qualifiers: Hypertension type: essential hypertension Qualified Code(s): I10 - Essential (primary) hypertension Assessment/Plan Short course of Medrol BD TX O2 as needed No smoking reenforced VTE prophylaxis Would monitor off ABX Will follow: Hopefully if improved can D/C home tomorrow Thank you. Dr Andres
[2019-04-14] MEDS: ALBUTEROL SO4 0.083% IH SOL 2.5 MG/3 ML VIAL.NEB. NEB SCH ×2 (13:51→19:34)
[2019-04-14] MEDS: ROSUVASTATIN CA 10 MG TABLET (FP) PO SCH (21:40)
--- NOTE | 2019-04-14 22:47 | PN ---
Progress Note, Physician - Current Medication List Current Medications: Active Medications Albuterol Sulfate (Ventolin 0.083% Nebulizer Soln -) 1 amp NEB RTID [facility] Last Admin: 04/14/19 19:34 Dose: 1 amp Albuterol/Ipratropium (Duoneb -) 1 amp NEB Q6H PRN PRN Reason: SHORTNESS OF BREATH Last Admin: 04/13/19 22:05 Dose: 1 amp Aspirin (Asa -) 81 mg PO DAILY [facility] Last Admin: 04/14/19 10:09 Dose: 81 mg Budesonide/Formoterol Fumarate (Symbicort 160/4.5mcg -) 1 puff IH BID [facility] Last Admin: 04/14/19 21:40 Dose: 1 puff Furosemide (Lasix Injection -) 20 mg IVPUSH DAILY [facility] Last Admin: 04/14/19 10:09 Dose: 20 mg Heparin Sodium (Porcine) (Heparin -) 5,000 unit SQ BID [facility] Last Admin: 04/14/19 21:40 Dose: Not Given Levothyroxine Sodium (Synthroid -) 50 mcg PO DAILY@0700 [facility] Last Admin: 04/14/19 06:12 Dose: 50 mcg Losartan Potassium (Cozaar -) 50 mg PO DAILY [facility] Last Admin: 04/14/19 10:09 Dose: 50 mg Methylprednisolone Sodium Succinate (Solu-Medrol -) 40 mg IVPUSH Q8H-IV [facility] Last Admin: 04/14/19 17:00 Dose: 40 mg Rosuvastatin Calcium (Crestor -) 10 mg PO HS [facility] Last Admin: 04/14/19 21:40 Dose: 10 mg Tiotropium [place] (Spiriva Respimat) 2 puff IH DAILY [facility] Last Admin: 04/14/19 10:10 Dose: 2 puff - Objective Vital Signs: Vital Signs Temperature 8 F L 04/14/19 22:29 Pulse Rate 80 04/14/19 22:29 Respiratory Rate 20 04/14/19 22:29 Blood Pressure 130/80 04/14/19 22:29 O2 Sat by Pulse Oximetry (%) 98 04/14/19 10:00 Labs: CBC, BMP 04/14/19 08:00 04/14/19 08:00
[2019-04-15] MEDS: methylPREDNISolone NA SUCC 40 MG/1 ML VIAL IVPUSH SCH ×3 (02:39→17:06)
[2019-04-15] MEDS: ALBUTEROL SO4 2.5/IPRATROPIUM 0.5 INH SOL 3 ML VIAL.NEB. NEB PRN (03:01)
[2019-04-15] MEDS: LEVOTHYROXINE NA 50 MCG TABLET (FP) PO SCH (06:07)
[2019-04-15] MEDS: ALBUTEROL SO4 0.083% IH SOL 2.5 MG/3 ML VIAL.NEB. NEB SCH ×4 (07:30→20:11)
[2019-04-15] MEDS: LOSARTAN POTASSIUM 50 MG TABLET (FP) PO SCH (09:09)
[2019-04-15] MEDS: ASPIRIN 81 MG CHEWABLE TABLETS PO SCH (09:09)
[2019-04-15] MEDS: FUROSEMIDE 40 MG/4 ML INJECTABLE VIAL IVPUSH SCH (09:09)
[2019-04-15] MEDS: TIOTROPIUM BROMIDE 2.5 MCG (SPIRIVA) RESPIMAT INHALER IH SCH (09:10)
[2019-04-15] MEDS: BUDESONIDE/FORMETEROL FUMARATE 160/4.5 mcg INHALER IH SCH ×2 (09:10→21:29)
[2019-04-15] MEDS: HEPARIN NA (PORCINE) 5,000 UNITS/ML 1ML VIAL SQ SCH ×2 (09:11→21:23)
--- NOTE | 2019-04-15 10:27 | PN ---
Progress Note (short form) - Note Progress Note: PULMONARY Still with shortness of breath, nonproductive cough and wheezing. No fevers or chills. Vital Signs Period Temp Pulse Resp BP Sys/Hart Pulse Ox Last 24 Hr 8 F-98.6 F 80-106 16-99 111-130/61-80 98 Gen: NAD in chair Heart: RRR Lung: bilateral rhonchi, wheezes Abd: soft, nontender Ext: no edema CBC, BMP 04/14/19 08:00 04/14/19 08:00 Active Medications Albuterol Sulfate (Ventolin 0.083% Nebulizer Soln -) 1 amp NEB RTID [facility] Last Admin: 04/15/19 07:30 Dose: 1 amp Albuterol/Ipratropium (Duoneb -) 1 amp NEB Q6H PRN PRN Reason: SHORTNESS OF BREATH Last Admin: 04/15/19 03:01 Dose: 1 amp Aspirin (Asa -) 81 mg PO DAILY [facility] Last Admin: 04/15/19 09:09 Dose: 81 mg Budesonide/Formoterol Fumarate (Symbicort 160/4.5mcg -) 1 puff IH BID [facility] Last Admin: 04/15/19 09:10 Dose: 1 puff Furosemide (Lasix Injection -) 20 mg IVPUSH DAILY [facility] Last Admin: 04/15/19 09:09 Dose: 20 mg Heparin Sodium (Porcine) (Heparin -) 5,000 unit SQ BID [facility] Last Admin: 04/15/19 09:11 Dose: Not Given Levothyroxine Sodium (Synthroid -) 50 mcg PO DAILY@0700 [facility] Last Admin: 04/15/19 06:07 Dose: 50 mcg Losartan Potassium (Cozaar -) 50 mg PO DAILY [facility] Last Admin: 04/15/19 09:09 Dose: 50 mg Methylprednisolone Sodium Succinate (Solu-Medrol -) 40 mg IVPUSH Q8H-IV [facility] Last Admin: 04/15/19 09:09 Dose: 40 mg Rosuvastatin Calcium (Crestor -) 10 mg PO HS [facility] Last Admin: 04/14/19 21:40 Dose: 10 mg Tiotropium [place] (Spiriva Respimat) 2 puff IH DAILY [facility] Last Admin: 04/15/19 09:10 Dose: 2 puff A/P Acute COPD Exacerbation h/o Lung Ca s/p lobectomy HTN Hypercholesterolemia Hypothyroidism - continue medrol at current dose - inhaled bronchodilators standing and PRN - O2 as needed - DVT prophylaxis
--- NOTE | 2019-04-15 14:08 | PN ---
Progress Note, Physician Chief Complaint: Coverage for Dr. Dillon Intermittent dyspnea and wheezing History of Present Illness: Patient was seen and examined. Awake and alert. Chart was reviewed Denies chest pain or palpitations. As outlined - Current Medication List Current Medications: Active Medications Albuterol Sulfate (Ventolin 0.083% Nebulizer Soln -) 1 amp NEB RQID [facility] Last Admin: 04/15/19 11:10 Dose: 1 amp Albuterol Sulfate (Ventolin 0.083% Nebulizer Soln -) 1 amp NEB Q4H PRN PRN Reason: SHORT OF BREATH/WHEEZING Aspirin (Asa -) 81 mg PO DAILY [facility] Last Admin: 04/15/19 09:09 Dose: 81 mg Budesonide/Formoterol Fumarate (Symbicort 160/4.5mcg -) 1 puff IH BID [facility] Last Admin: 04/15/19 09:10 Dose: 1 puff Furosemide (Lasix Injection -) 20 mg IVPUSH DAILY [facility] Last Admin: 04/15/19 09:09 Dose: 20 mg Heparin Sodium (Porcine) (Heparin -) 5,000 unit SQ BID [facility] Last Admin: 04/15/19 09:11 Dose: Not Given Levothyroxine Sodium (Synthroid -) 50 mcg PO DAILY@0700 [facility] Last Admin: 04/15/19 06:07 Dose: 50 mcg Losartan Potassium (Cozaar -) 50 mg PO DAILY [facility] Last Admin: 04/15/19 09:09 Dose: 50 mg Methylprednisolone Sodium Succinate (Solu-Medrol -) 40 mg IVPUSH Q8H-IV [facility] Last Admin: 04/15/19 09:09 Dose: 40 mg Rosuvastatin Calcium (Crestor -) 10 mg PO HS [facility] Last Admin: 04/14/19 21:40 Dose: 10 mg Tiotropium [place] (Spiriva Respimat) 2 puff IH DAILY [facility] - Objective Vital Signs: Vital Signs Temperature 98.4 F 04/15/19 07:30 Pulse Rate 94 H 04/15/19 07:30 Respiratory Rate 99 H 04/15/19 08:17 Blood Pressure 111/68 04/15/19 07:30 O2 Sat by Pulse Oximetry (%) 98 04/15/19 08:17 Eyes: Yes: PERRL HENT: Yes: Atraumatic Neck: Yes: Lymphadenopathy Cardiovascular: Yes: Regular Rate and Rhythm, S1, S2 Respiratory: Yes: Diminished Gastrointestinal: Yes: Normal Bowel Sounds, Soft. No: Tenderness Edema: No Labs: CBC, BMP 04/14/19 08:00 04/14/19 08:00 Problem List - Problems (1) CAD (coronary artery disease) Code(s): I25.10 - ATHSCL HEART DISEASE OF [place] CORONARY ARTERY W/O ANG PCTRS (2) COPD exacerbation Code(s): J44.1 - CHRONIC OBSTRUCTIVE PULMONARY DISEASE W (ACUTE) EXACERBATION (3) Diastolic CHF Code(s): I50.30 - UNSPECIFIED DIASTOLIC (CONGESTIVE) HEART FAILURE (4) H/O: lung cancer Code(s): Z85.118 - PERSONAL HISTORY OF MALIGNANT NEOPLASM OF BRONCHUS AND LUNG (5) HLD (hyperlipidemia) Code(s): E78.5 - HYPERLIPIDEMIA, UNSPECIFIED Qualifiers: Hyperlipidemia type: pure hypercholesterolemia Qualified Code(s): E78.00 - Pure hypercholesterolemia, unspecified; E78.0 - Pure hypercholesterolemia (6) HTN (hypertension) Code(s): I10 - ESSENTIAL (PRIMARY) HYPERTENSION Qualifiers: Hypertension type: essential hypertension Qualified Code(s): I10 - Essential (primary) hypertension (7) Hypothyroidism Code(s): E03.9 - HYPOTHYROIDISM, UNSPECIFIED Assessment/Plan 1. Clinical presentation suggests COPD exacerbation 2. History of lung CA s/p lobectomy 3. HTN 4. Hypercholesterolemia 5. Hypothyroidism PLAN: 1. Continue steroid taper, bronchodilators, O2 as needed2 2. Continue Losartan 50 mg QD 3. Continue Rosuvastatin 10 mg QD 4. ASA 81 mg QD 5. DVT prophylaxis 6. Pulmonary follow up Further plans are to follow Donald Ortiz MD
[2019-04-15] MEDS: ROSUVASTATIN CA 10 MG TABLET (FP) PO SCH (21:29)
--- NOTE | 2019-04-15 23:09 | PN ---
Progress Note, Physician History of Present Illness: Pt still feeling SOB - Current Medication List Current Medications: Active Medications Albuterol Sulfate (Ventolin 0.083% Nebulizer Soln -) 1 amp NEB RQID [facility] Last Admin: 04/15/19 20:11 Dose: 1 amp Albuterol Sulfate (Ventolin 0.083% Nebulizer Soln -) 1 amp NEB Q4H PRN PRN Reason: SHORT OF BREATH/WHEEZING Aspirin (Asa -) 81 mg PO DAILY [facility] Last Admin: 04/15/19 09:09 Dose: 81 mg Budesonide/Formoterol Fumarate (Symbicort 160/4.5mcg -) 1 puff IH BID [facility] Last Admin: 04/15/19 21:29 Dose: 1 puff Furosemide (Lasix Injection -) 20 mg IVPUSH DAILY [facility] Last Admin: 04/15/19 09:09 Dose: 20 mg Heparin Sodium (Porcine) (Heparin -) 5,000 unit SQ BID [facility] Last Admin: 04/15/19 21:23 Dose: Not Given Levothyroxine Sodium (Synthroid -) 50 mcg PO DAILY@0700 [facility] Last Admin: 04/15/19 06:07 Dose: 50 mcg Losartan Potassium (Cozaar -) 50 mg PO DAILY [facility] Last Admin: 04/15/19 09:09 Dose: 50 mg Methylprednisolone Sodium Succinate (Solu-Medrol -) 40 mg IVPUSH Q8H-IV [facility] Last Admin: 04/15/19 17:06 Dose: 40 mg Rosuvastatin Calcium (Crestor -) 10 mg PO HS [facility] Last Admin: 04/15/19 21:29 Dose: 10 mg Tiotropium [place] (Spiriva Respimat) 2 puff IH DAILY [facility] - Objective Vital Signs: Vital Signs Temperature 97.9 F 04/15/19 22:00 Pulse Rate 91 H 04/15/19 22:00 Respiratory Rate 20 04/15/19 22:00 Blood Pressure 135/82 04/15/19 22:00 O2 Sat by Pulse Oximetry (%) 100 04/15/19 21:00 HENT: Yes: WNL Neck: Yes: WNL, Supple Cardiovascular: Yes: WNL, Regular Rate and Rhythm Respiratory: Yes: Rhonchi, Wheezes Gastrointestinal: Yes: WNL, Normal Bowel Sounds, Soft Edema: No Labs: CBC, BMP 04/14/19 08:00 04/14/19 08:00 Problem List - Problems (1) COPD exacerbation Assessment/Plan: Cont IV solumedrol and taper Cont nebulizers/symbicort/spiriva Code(s): J44.1 - CHRONIC OBSTRUCTIVE PULMONARY DISEASE W (ACUTE) EXACERBATION (2) HTN (hypertension) Assessment/Plan: Bp stable Cont asa/losartan Code(s): I10 - ESSENTIAL (PRIMARY) HYPERTENSION Qualifiers: Hypertension type: essential hypertension Qualified Code(s): I10 - Essential (primary) hypertension (3) Hypothyroidism Assessment/Plan: Cont levothyroxine Code(s): E03.9 - HYPOTHYROIDISM, UNSPECIFIED (4) Diabetes Code(s): E11.9 - TYPE 2 DIABETES MELLITUS WITHOUT COMPLICATIONS (5) H/O: lung cancer Assessment/Plan: S/P lobectomy Code(s): Z85.118 - PERSONAL HISTORY OF MALIGNANT NEOPLASM OF BRONCHUS AND LUNG (6) HLD (hyperlipidemia) Assessment/Plan: Cont crestor Code(s): E78.5 - HYPERLIPIDEMIA, UNSPECIFIED Qualifiers: Hyperlipidemia type: pure hypercholesterolemia Qualified Code(s): E78.00 - Pure hypercholesterolemia, unspecified; E78.0 - Pure hypercholesterolemia (7) CAD (coronary artery disease) Code(s): I25.10 - ATHSCL HEART DISEASE OF [place] CORONARY ARTERY W/O ANG PCTRS
[2019-04-16] MEDS: ALBUTEROL SO4 0.083% IH SOL 2.5 MG/3 ML VIAL.NEB. NEB PRN ×2 (00:04→06:15)
[2019-04-16] MEDS: methylPREDNISolone NA SUCC 40 MG/1 ML VIAL IVPUSH SCH ×3 (01:41→17:41)
[2019-04-16] MEDS: LEVOTHYROXINE NA 50 MCG TABLET (FP) PO SCH (06:15)
[2019-04-16] MEDS: ALBUTEROL SO4 0.083% IH SOL 2.5 MG/3 ML VIAL.NEB. NEB SCH ×4 (07:20→20:08)
[2019-04-16] MEDS: HEPARIN NA (PORCINE) 5,000 UNITS/ML 1ML VIAL SQ SCH ×2 (09:41→21:11)
[2019-04-16] MEDS: LOSARTAN POTASSIUM 50 MG TABLET (FP) PO SCH (09:49)
[2019-04-16] MEDS: ASPIRIN 81 MG CHEWABLE TABLETS PO SCH (09:49)
[2019-04-16] MEDS: FUROSEMIDE 40 MG/4 ML INJECTABLE VIAL IVPUSH SCH (09:49)
[2019-04-16] MEDS: BUDESONIDE/FORMETEROL FUMARATE 160/4.5 mcg INHALER IH SCH ×2 (09:51→21:12)
[2019-04-16] MEDS: TIOTROPIUM BROMIDE 2.5 MCG (SPIRIVA) RESPIMAT INHALER IH SCH (09:52)
--- NOTE | 2019-04-16 10:47 | PN ---
Progress Note (short form) - Note Progress Note: Still with shortness of breath, nonproductive cough and wheezing. No fevers or chills. Intake & Output 04/13/19 04/14/19 04/15/19 04/16/19 23:59 23:59 23:59 23:59 Intake Total 038 397 5210 Balance 792 838 7720 Weight 122 lb 3.2 oz Last Vital Signs Temp Pulse Resp BP Pulse Ox 98.5 F 93 H 20 126/68 99 04/16/19 05:58 04/16/19 05:58 04/16/19 05:58 04/16/19 05:58 04/16/19 09:00 Active Medications Albuterol Sulfate (Ventolin 0.083% Nebulizer Soln -) 1 amp NEB RQID [facility] Last Admin: 04/16/19 07:20 Dose: Not Given Albuterol Sulfate (Ventolin 0.083% Nebulizer Soln -) 1 amp NEB Q4H PRN PRN Reason: SHORT OF BREATH/WHEEZING Last Admin: 04/16/19 06:15 Dose: 1 amp Aspirin (Asa -) 81 mg PO DAILY [facility] Last Admin: 04/16/19 09:49 Dose: 81 mg Budesonide/Formoterol Fumarate (Symbicort 160/4.5mcg -) 1 puff IH BID [facility] Last Admin: 04/16/19 09:51 Dose: 1 puff Furosemide (Lasix Injection -) 20 mg IVPUSH DAILY [facility] Last Admin: 04/16/19 09:49 Dose: 20 mg Heparin Sodium (Porcine) (Heparin -) 5,000 unit SQ BID [facility] Last Admin: 04/16/19 09:41 Dose: Not Given Levothyroxine Sodium (Synthroid -) 50 mcg PO DAILY@0700 [facility] Last Admin: 04/16/19 06:15 Dose: 50 mcg Losartan Potassium (Cozaar -) 50 mg PO DAILY [facility] Last Admin: 04/16/19 09:49 Dose: 50 mg Methylprednisolone Sodium Succinate (Solu-Medrol -) 40 mg IVPUSH Q8H-IV [facility] Last Admin: 04/16/19 09:49 Dose: 40 mg Rosuvastatin Calcium (Crestor -) 10 mg PO HS [facility] Last Admin: 04/15/19 21:29 Dose: 10 mg Tiotropium [place] (Spiriva Respimat) 2 puff IH DAILY [facility] Last Admin: 04/16/19 09:52 Dose: 2 puff Gen: Awake and alert, NAD in bed Heart: RRR Lung: bilateral rhonchi, wheezes Abd: soft, nontender Ext: no edema Laboratory Results - last 24 hr 04/15/19 19:20 Creatine Kinase 170 Creatine Kinase Index 1.7 CK-MB (CK-2) 3.0 Troponin I < 0.02 A/P Acute COPD Exacerbation h/o Lung Ca s/p lobectomy HTN Hypercholesterolemia Hypothyroidism - Mucinex BID - continue medrol at current dose - inhaled bronchodilators standing and PRN - O2 as needed - DVT prophylaxis Dr Andres Problem List - Problems (1) Lung nodule < 6cm on CT Code(s): R91.1 - SOLITARY PULMONARY NODULE (2) Cough Code(s): R05 - COUGH (3) Hypothyroidism Code(s): E03.9 - HYPOTHYROIDISM, UNSPECIFIED (4) SOB (shortness of breath) Code(s): R06.02 - SHORTNESS OF BREATH (5) CAD (coronary artery disease) Code(s): I25.10 - ATHSCL HEART DISEASE OF [place] CORONARY ARTERY W/O ANG PCTRS (6) COPD exacerbation Code(s): J44.1 - CHRONIC OBSTRUCTIVE PULMONARY DISEASE W (ACUTE) EXACERBATION (7) Diabetes Code(s): E11.9 - TYPE 2 DIABETES MELLITUS WITHOUT COMPLICATIONS (8) H/O: lung cancer Code(s): Z85.118 - PERSONAL HISTORY OF MALIGNANT NEOPLASM OF BRONCHUS AND LUNG (9) HLD (hyperlipidemia) Code(s): E78.5 - HYPERLIPIDEMIA, UNSPECIFIED Qualifiers: Hyperlipidemia type: pure hypercholesterolemia Qualified Code(s): E78.00 - Pure hypercholesterolemia, unspecified; E78.0 - Pure hypercholesterolemia (10) HTN (hypertension) Code(s): I10 - ESSENTIAL (PRIMARY) HYPERTENSION Qualifiers: Hypertension type: essential hypertension Qualified Code(s): I10 - Essential (primary) hypertension
[2019-04-16] MEDS: guaiFENesin 600 MG TABLET.ER (FP) PO SCH ×2 (11:39→21:11)
--- NOTE | 2019-04-16 13:06 | ECHO ---
Version: 1 Name: GOLDY ESCOBAR Exam: Adult Echocardiogram Study Date: 04/16/2019, 10:24 AM Age: 83 Years MMode/2D Measurements & Calculations IVSd: 0.95 cm LVIDs: 3.1 cm LVIDd: 4.1 cm LVPWd: 0.77 cm LVOT diam: 2.09 cm Ao root diam: 2.9 cm LA dimension: 3.3 cm Doppler Measurements & Calculations MV E max hilton: 112.5 cm/sec Med E/e': 14.7 MV A max [place]: 120.4 cm/sec Med Peak E' [place]: 7.7 cm/sec MV E/A: 0.93 Lat E/e': 12.8 Lat Peak E' [place]: 8.8 cm/sec MR max P.7 mmHg Ao max P.6 mmHg KATIE(I,D): 3.0 cm Ao mean P.0 mmHg LV V1 mean: 71.6 cm/sec Ao V2 max: 146.8 cm/sec LV V1 mean P.29 mmHg TR max [place]: 249.6 cm/sec TR max P.1 mmHg Left Ventricle The left ventricular size, thickness and function are normal. Right Ventricle The right ventricle is normal in size and function. Atria Normal left and right atrial size and function. Mitral Valve The mitral valve is normal in structure and function. Tricuspid Valve The tricuspid valve is normal in structure and function. Aortic Valve The aortic valve is normal in structure and function. Pulmonic Valve The pulmonic valve is normal in structure and function. Great Vessels The aortic root is not well visualized. Pericardium/Pleura There is no pericardial effusion. Summary Statements The left ventricular size, thickness and function are normal The right ventricle is normal in size and function. Normal left and right atrial size and function. The mitral valve is normal in structure and function. The tricuspid valve is normal in structure and function. The aortic valve is normal in structure and function. EF 52% PASP 32 mmHg MD Chris Whitney 04/16/2019, 12:05 PM Ordering Physician: Diana Benton Referring Physician: DIANA IGLESIAS Performed By: Emily Benites
[2019-04-16] MEDS: ROSUVASTATIN CA 10 MG TABLET (FP) PO SCH (21:11)
--- NOTE | 2019-04-16 21:46 | PN ---
Progress Note, Physician - Current Medication List Current Medications: Active Medications Albuterol Sulfate (Ventolin 0.083% Nebulizer Soln -) 1 amp NEB RQID [facility] Last Admin: 04/16/19 20:08 Dose: 1 amp Albuterol Sulfate (Ventolin 0.083% Nebulizer Soln -) 1 amp NEB Q4H PRN PRN Reason: SHORT OF BREATH/WHEEZING Last Admin: 04/16/19 06:15 Dose: 1 amp Aspirin (Asa -) 81 mg PO DAILY [facility] Last Admin: 04/16/19 09:49 Dose: 81 mg Budesonide/Formoterol Fumarate (Symbicort 160/4.5mcg -) 1 puff IH BID [facility] Last Admin: 04/16/19 21:12 Dose: 1 puff Furosemide (Lasix Injection -) 20 mg IVPUSH DAILY [facility] Last Admin: 04/16/19 09:49 Dose: 20 mg Guaifenesin (Mucinex -) 600 mg PO BID [facility] Last Admin: 04/16/19 21:11 Dose: 600 mg Heparin Sodium (Porcine) (Heparin -) 5,000 unit SQ BID [facility] Last Admin: 04/16/19 21:11 Dose: Not Given Levothyroxine Sodium (Synthroid -) 50 mcg PO DAILY@0700 [facility] Last Admin: 04/16/19 06:15 Dose: 50 mcg Losartan Potassium (Cozaar -) 50 mg PO DAILY [facility] Last Admin: 04/16/19 09:49 Dose: 50 mg Methylprednisolone Sodium Succinate (Solu-Medrol -) 40 mg IVPUSH Q8H-IV [facility] Last Admin: 04/16/19 17:41 Dose: 40 mg Rosuvastatin Calcium (Crestor -) 10 mg PO HS [facility] Last Admin: 04/16/19 21:11 Dose: 10 mg Tiotropium [place] (Spiriva Respimat) 2 puff IH DAILY [facility] Last Admin: 04/16/19 09:52 Dose: 2 puff - Objective Vital Signs: Vital Signs Temperature 98.6 F 04/16/19 18:00 Pulse Rate 101 H 04/16/19 18:00 Respiratory Rate 20 04/16/19 18:00 Blood Pressure 121/74 04/16/19 18:00 O2 Sat by Pulse Oximetry (%) 99 04/16/19 09:00 Labs: CBC, BMP 04/14/19 08:00 04/14/19 08:00 Problem List - Problems (1) COPD exacerbation Code(s): J44.1 - CHRONIC OBSTRUCTIVE PULMONARY DISEASE W (ACUTE) EXACERBATION (2) HTN (hypertension) Code(s): I10 - ESSENTIAL (PRIMARY) HYPERTENSION Qualifiers: Hypertension type: essential hypertension Qualified Code(s): I10 - Essential (primary) hypertension (3) Hypothyroidism Code(s): E03.9 - HYPOTHYROIDISM, UNSPECIFIED (4) Diabetes Code(s): E11.9 - TYPE 2 DIABETES MELLITUS WITHOUT COMPLICATIONS (5) H/O: lung cancer Code(s): Z85.118 - PERSONAL HISTORY OF MALIGNANT NEOPLASM OF BRONCHUS AND LUNG (6) HLD (hyperlipidemia) Code(s): E78.5 - HYPERLIPIDEMIA, UNSPECIFIED Qualifiers: Hyperlipidemia type: pure hypercholesterolemia Qualified Code(s): E78.00 - Pure hypercholesterolemia, unspecified; E78.0 - Pure hypercholesterolemia (7) CAD (coronary artery disease) Code(s): I25.10 - ATHSCL HEART DISEASE OF [place] CORONARY ARTERY W/O ANG PCTRS
--- NOTE | 2019-04-16 23:14 | PN ---
Progress Note, Physician Chief Complaint: Pt A&OX3; says she only began feeling better this evening; since being given Mucinex, her breathing has finally improved. History of Present Illness: 83yo female (b. [place]) with hx of lung ca s/p resection in remission, COPD , now admitted with sob and cough. Recent travel to [place]. Pt dx with a DVT to R calf on monday - not on anticoag. States R leg pain is worse, now with increasing sob. Using her inhalers at home - spiriva, breo, albuterol nebs/ inhaler. States cough started monday - her daughter started her on azithromycin for the cough on monday. Worsening sob this AM. No cp. Woke up at 4am unable to breath. No LE edema. No abd pain. No f/c. No rhinorrhea or sore throat. No n/v/ d. No other complaints. - Current Medication List Current Medications: Active Medications Albuterol Sulfate (Ventolin 0.083% Nebulizer Soln -) 1 amp NEB RQID [facility] Last Admin: 04/16/19 20:08 Dose: 1 amp Albuterol Sulfate (Ventolin 0.083% Nebulizer Soln -) 1 amp NEB Q4H PRN PRN Reason: SHORT OF BREATH/WHEEZING Last Admin: 04/16/19 06:15 Dose: 1 amp Aspirin (Asa -) 81 mg PO DAILY [facility] Last Admin: 04/16/19 09:49 Dose: 81 mg Budesonide/Formoterol Fumarate (Symbicort 160/4.5mcg -) 1 puff IH BID [facility] Last Admin: 04/16/19 21:12 Dose: 1 puff Furosemide (Lasix Injection -) 20 mg IVPUSH DAILY [facility] Last Admin: 04/16/19 09:49 Dose: 20 mg Guaifenesin (Mucinex -) 600 mg PO BID [facility] Last Admin: 04/16/19 21:11 Dose: 600 mg Heparin Sodium (Porcine) (Heparin -) 5,000 unit SQ BID [facility] Last Admin: 04/16/19 21:11 Dose: Not Given Levothyroxine Sodium (Synthroid -) 50 mcg PO DAILY@0700 [facility] Last Admin: 04/16/19 06:15 Dose: 50 mcg Losartan Potassium (Cozaar -) 50 mg PO DAILY [facility] Last Admin: 04/16/19 09:49 Dose: 50 mg Methylprednisolone Sodium Succinate (Solu-Medrol -) 40 mg IVPUSH Q8H-IV [facility] Last Admin: 04/16/19 17:41 Dose: 40 mg Rosuvastatin Calcium (Crestor -) 10 mg PO HS [facility] Last Admin: 04/16/19 21:11 Dose: 10 mg Tiotropium [place] (Spiriva Respimat) 2 puff IH DAILY [facility] Last Admin: 04/16/19 09:52 Dose: 2 puff - Objective Vital Signs: Vital Signs Temperature 98.6 F 04/16/19 18:00 Pulse Rate 101 H 04/16/19 18:00 Respiratory Rate 20 04/16/19 21:00 Blood Pressure 121/74 04/16/19 18:00 O2 Sat by Pulse Oximetry (%) 100 04/16/19 21:00 Constitutional: Yes: Calm Eyes: Yes: WNL HENT: Yes: WNL Neck: Yes: WNL Cardiovascular: Yes: WNL, S1, S2 Respiratory: Yes: Poor Air Entry, Rhonchi, SOB on Exertion, Tachypnea Gastrointestinal: Yes: Soft, Vomiting ...Rectal Exam: Yes: Deferred Genitourinary: No: Anuria Breast(s): Yes: WNL Extremities: Yes: WNL Edema: No Peripheral Pulses WNL: Yes Integumentary: Yes: WNL Neurological: Yes: WNL Psychiatric: Yes: Alert, Oriented, Other (anxiety/depression) Labs: CBC, BMP 04/14/19 08:00 04/14/19 08:00 - ....Imaging Ultrasound: Report Reviewed (ECHO: normal LVEF;) Problem List - Problems (1) Cough Code(s): R05 - COUGH (2) Lung nodule < 6cm on CT Code(s): R91.1 - SOLITARY PULMONARY NODULE (3) SOB (shortness of breath) Code(s): R06.02 - SHORTNESS OF BREATH (4) CAD (coronary artery disease) Code(s): I25.10 - ATHSCL HEART DISEASE OF [place] CORONARY ARTERY W/O ANG PCTRS (5) COPD exacerbation Code(s): J44.1 - CHRONIC OBSTRUCTIVE PULMONARY DISEASE W (ACUTE) EXACERBATION (6) Diastolic CHF Code(s): I50.30 - UNSPECIFIED DIASTOLIC (CONGESTIVE) HEART FAILURE (7) HLD (hyperlipidemia) Assessment/Plan: on rosuvastatin. Code(s): E78.5 - HYPERLIPIDEMIA, UNSPECIFIED Qualifiers: Hyperlipidemia type: pure hypercholesterolemia Qualified Code(s): E78.00 - Pure hypercholesterolemia, unspecified; E78.0 - Pure hypercholesterolemia (8) HTN (hypertension) Assessment/Plan: on losartan and furosemide. ECHO: normal LVEF Code(s): I10 - ESSENTIAL (PRIMARY) HYPERTENSION Qualifiers: Hypertension type: essential hypertension Qualified Code(s): I10 - Essential (primary) hypertension (9) Lung cancer Assessment/Plan: f/u with oncologist. Code(s): C34.90 - MALIGNANT NEOPLASM OF UNSP PART OF UNSP BRONCHUS OR LUNG
[2019-04-17] MEDS: methylPREDNISolone NA SUCC 40 MG/1 ML VIAL IVPUSH SCH ×4 (01:02→21:06)
[2019-04-17] MEDS: LEVOTHYROXINE NA 50 MCG TABLET (FP) PO SCH (06:09)
[2019-04-17] MEDS: ALBUTEROL SO4 0.083% IH SOL 2.5 MG/3 ML VIAL.NEB. NEB SCH ×4 (08:00→20:40)
[2019-04-17] MEDS: HEPARIN NA (PORCINE) 5,000 UNITS/ML 1ML VIAL SQ SCH ×2 (09:56→21:03)
[2019-04-17] MEDS: LOSARTAN POTASSIUM 50 MG TABLET (FP) PO SCH (09:57)
[2019-04-17] MEDS: guaiFENesin 600 MG TABLET.ER (FP) PO SCH ×2 (09:57→21:03)
[2019-04-17] MEDS: FUROSEMIDE 40 MG/4 ML INJECTABLE VIAL IVPUSH SCH (09:57)
[2019-04-17] MEDS: ASPIRIN 81 MG CHEWABLE TABLETS PO SCH (09:57)
[2019-04-17] MEDS: BUDESONIDE/FORMETEROL FUMARATE 160/4.5 mcg INHALER IH SCH ×2 (09:59→21:04)
[2019-04-17] MEDS: TIOTROPIUM BROMIDE 2.5 MCG (SPIRIVA) RESPIMAT INHALER IH SCH (09:59)
--- NOTE | 2019-04-17 12:42 | PN ---
Progress Note (short form) - Note Progress Note: PULMONARY Still with shortness of breath, nonproductive cough and wheezing, worse at night. No fevers or chills. Vital Signs Period Temp Pulse Resp BP Sys/Hart Pulse Ox Last 24 Hr 98.2 F-98.6 F 79-101 20-20 110-121/62-74 94-100 Gen: NAD in chair Heart: RRR Lung: bilateral rhonchi, wheezes Abd: soft, nontender Ext: no edema CBC, BMP 04/14/19 08:00 04/14/19 08:00 Active Medications Albuterol Sulfate (Ventolin 0.083% Nebulizer Soln -) 1 amp NEB RQID [facility] Last Admin: 04/17/19 11:19 Dose: Not Given Albuterol Sulfate (Ventolin 0.083% Nebulizer Soln -) 1 amp NEB Q4H PRN PRN Reason: SHORT OF BREATH/WHEEZING Last Admin: 04/16/19 06:15 Dose: 1 amp Aspirin (Asa -) 81 mg PO DAILY [facility] Last Admin: 04/17/19 09:57 Dose: 81 mg Budesonide/Formoterol Fumarate (Symbicort 160/4.5mcg -) 1 puff IH BID [facility] Last Admin: 04/17/19 09:59 Dose: 1 puff Furosemide (Lasix Injection -) 20 mg IVPUSH DAILY [facility] Last Admin: 04/17/19 09:57 Dose: 20 mg Guaifenesin (Mucinex -) 600 mg PO BID [facility] Last Admin: 04/17/19 09:57 Dose: 600 mg Heparin Sodium (Porcine) (Heparin -) 5,000 unit SQ BID [facility] Last Admin: 04/17/19 09:56 Dose: Not Given Levothyroxine Sodium (Synthroid -) 50 mcg PO DAILY@0700 [facility] Last Admin: 04/17/19 06:09 Dose: 50 mcg Losartan Potassium (Cozaar -) 50 mg PO DAILY [facility] Last Admin: 04/17/19 09:57 Dose: 50 mg Methylprednisolone Sodium Succinate (Solu-Medrol -) 40 mg IVPUSH Q8H-IV [facility] Last Admin: 04/17/19 09:57 Dose: 40 mg Rosuvastatin Calcium (Crestor -) 10 mg PO HS [facility] Last Admin: 04/16/19 21:11 Dose: 10 mg Tiotropium [place] (Spiriva Respimat) 2 puff IH DAILY [facility] Last Admin: 04/17/19 09:59 Dose: 2 puff A/P Acute COPD Exacerbation h/o Lung Ca s/p lobectomy HTN Hypercholesterolemia Hypothyroidism - will increase medrol to q6h - inhaled bronchodilators standing and PRN - O2 as needed - DVT prophylaxis
[2019-04-17] MEDS: ROSUVASTATIN CA 10 MG TABLET (FP) PO SCH (21:03)
--- NOTE | 2019-04-17 21:55 | PN ---
Progress Note, Physician History of Present Illness: Pt not feeling improved - Current Medication List Current Medications: Active Medications Albuterol Sulfate (Ventolin 0.083% Nebulizer Soln -) 1 amp NEB RQID [facility] Last Admin: 04/17/19 20:40 Dose: 1 amp Albuterol Sulfate (Ventolin 0.083% Nebulizer Soln -) 1 amp NEB Q4H PRN PRN Reason: SHORT OF BREATH/WHEEZING Last Admin: 04/16/19 06:15 Dose: 1 amp Aspirin (Asa -) 81 mg PO DAILY [facility] Last Admin: 04/17/19 09:57 Dose: 81 mg Budesonide/Formoterol Fumarate (Symbicort 160/4.5mcg -) 1 puff IH BID [facility] Last Admin: 04/17/19 21:04 Dose: 1 puff Furosemide (Lasix Injection -) 20 mg IVPUSH DAILY [facility] Last Admin: 04/17/19 09:57 Dose: 20 mg Guaifenesin (Mucinex -) 600 mg PO BID [facility] Last Admin: 04/17/19 21:03 Dose: 600 mg Heparin Sodium (Porcine) (Heparin -) 5,000 unit SQ BID [facility] Last Admin: 04/17/19 21:03 Dose: Not Given Levothyroxine Sodium (Synthroid -) 50 mcg PO DAILY@0700 [facility] Last Admin: 04/17/19 06:09 Dose: 50 mcg Losartan Potassium (Cozaar -) 50 mg PO DAILY [facility] Last Admin: 04/17/19 09:57 Dose: 50 mg Methylprednisolone Sodium Succinate (Solu-Medrol -) 40 mg IVPUSH Q6H [facility] Last Admin: 04/17/19 21:06 Dose: 40 mg Rosuvastatin Calcium (Crestor -) 10 mg PO HS [facility] Last Admin: 04/17/19 21:03 Dose: 10 mg Tiotropium [employer] (Spiriva Respimat) 2 puff IH DAILY [facility] Last Admin: 04/17/19 09:59 Dose: 2 puff - Objective Vital Signs: Vital Signs Temperature 98 F 04/17/19 18:00 Pulse Rate 101 H 04/17/19 18:00 Respiratory Rate 20 04/17/19 20:23 Blood Pressure 119/66 04/17/19 18:00 O2 Sat by Pulse Oximetry (%) 95 04/17/19 20:23 Neck: Yes: WNL, Supple Cardiovascular: Yes: WNL, Regular Rate and Rhythm Respiratory: Yes: Wheezes Gastrointestinal: Yes: WNL, Normal Bowel Sounds, Soft Edema: No Labs: CBC, BMP 04/14/19 08:00 04/14/19 08:00 Problem List - Problems (1) COPD exacerbation Assessment/Plan: IV solumedrol dose was increased Cont nebulizers/symbicort/spiriva Code(s): J44.1 - CHRONIC OBSTRUCTIVE PULMONARY DISEASE W (ACUTE) EXACERBATION (2) HTN (hypertension) Assessment/Plan: Bp stable Cont asa/losartan Code(s): I10 - ESSENTIAL (PRIMARY) HYPERTENSION Qualifiers: Hypertension type: essential hypertension Qualified Code(s): I10 - Essential (primary) hypertension (3) Hypothyroidism Assessment/Plan: Cont levothyroxine Code(s): E03.9 - HYPOTHYROIDISM, UNSPECIFIED (4) Diabetes Code(s): E11.9 - TYPE 2 DIABETES MELLITUS WITHOUT COMPLICATIONS (5) H/O: lung cancer Assessment/Plan: S/P lobectomy Code(s): Z85.118 - PERSONAL HISTORY OF MALIGNANT NEOPLASM OF BRONCHUS AND LUNG (6) HLD (hyperlipidemia) Assessment/Plan: Cont crestor Code(s): E78.5 - HYPERLIPIDEMIA, UNSPECIFIED Qualifiers: Hyperlipidemia type: pure hypercholesterolemia Qualified Code(s): E78.00 - Pure hypercholesterolemia, unspecified; E78.0 - Pure hypercholesterolemia (7) CAD (coronary artery disease) Code(s): I25.10 - ATHSCL HEART DISEASE OF [place] CORONARY ARTERY W/O ANG PCTRS
[2019-04-18] MEDS: methylPREDNISolone NA SUCC 40 MG/1 ML VIAL IVPUSH SCH ×4 (04:11→22:22)
[2019-04-18] MEDS: LEVOTHYROXINE NA 50 MCG TABLET (FP) PO SCH (06:20)
[2019-04-18 08:12] LABS: BASO % 0.1 % (0-2.0); HEMATOCRIT 36.3 % (32.4-45.2); HEMOGLOBIN 12.2 GM/dL (10.7-15.3); LYMPH % 6.9 % (8-40); MCH 30.3 pg (25.7-33.7); MCHC 33.7 g/dl (32.0-36.0); MEAN CELL VOLUME 90.1 fl (80-96); MEAN PLT VOLUME 7.7 fl (7.5-11.1); MONO % 3.4 % (3.8-10.2); NEUT % 89.6 % (42.8-82.8); PLATELET COUNT 304 K/MM3 (134-434); RBC 4.03 M/mm3 (3.60-5.2); WHITE BLOOD COUNT 10.1 K/mm3 (4.0-10.0)
[2019-04-18 08:28] LABS: ALBUMIN 3.1 g/dl (3.4-5.0); BILIRUBIN,TOTAL 0.6 mg/dL (0.2-1); CALCIUM 8.6 mg/dL (8.5-10.1); CREATININE 0.9 mg/dL (0.55-1.3); POTASSIUM 4.4 mmol/L (3.5-5.1); TOT PROT 6.1 g/dl (6.4-8.2)
--- NOTE | 2019-04-18 09:26 | PN ---
Progress Note (short form) - Note Progress Note: Still with shortness of breath, nonproductive cough and wheezing. Symptoms worse at night. Noted Medrol increased yesterday. No fevers or chills. Intake & Output 04/15/19 04/16/19 04/17/19 04/18/19 23:59 23:59 23:59 23:59 Intake Total 1000 700 750 120 Balance 1000 700 750 120 Weight 124 lb 4 oz 123 lb 1 oz Last Vital Signs Temp Pulse Resp BP Pulse Ox 98.0 F 84 20 127/71 95 04/18/19 06:00 04/18/19 06:00 04/18/19 06:00 04/18/19 06:00 04/17/19 20:23 Active Medications Albuterol Sulfate (Ventolin 0.083% Nebulizer Soln -) 1 amp NEB RQID [facility] Last Admin: 04/17/19 20:40 Dose: 1 amp Albuterol Sulfate (Ventolin 0.083% Nebulizer Soln -) 1 amp NEB Q4H PRN PRN Reason: SHORT OF BREATH/WHEEZING Last Admin: 04/16/19 06:15 Dose: 1 amp Aspirin (Asa -) 81 mg PO DAILY [facility] Last Admin: 04/17/19 09:57 Dose: 81 mg Budesonide/Formoterol Fumarate (Symbicort 160/4.5mcg -) 2 puff IH BID [facility] Furosemide (Lasix Injection -) 20 mg IVPUSH DAILY [facility] Last Admin: 04/17/19 09:57 Dose: 20 mg Guaifenesin (Mucinex -) 600 mg PO BID [facility] Last Admin: 04/17/19 21:03 Dose: 600 mg Heparin Sodium (Porcine) (Heparin -) 5,000 unit SQ BID [facility] Last Admin: 04/17/19 21:03 Dose: Not Given Levothyroxine Sodium (Synthroid -) 50 mcg PO DAILY@0700 [facility] Last Admin: 04/18/19 06:20 Dose: 50 mcg Losartan Potassium (Cozaar -) 50 mg PO DAILY [facility] Last Admin: 04/17/19 09:57 Dose: 50 mg Methylprednisolone Sodium Succinate (Solu-Medrol -) 40 mg IVPUSH Q6H [facility] Last Admin: 04/18/19 04:11 Dose: 40 mg Rosuvastatin Calcium (Crestor -) 10 mg PO HS [facility] Last Admin: 04/17/19 21:03 Dose: 10 mg Tiotropium [place] (Spiriva Respimat) 2 puff IH DAILY [facility] Last Admin: 04/17/19 09:59 Dose: 2 puff Gen: Awake and alert, OOB to chair, congested cough Heart: RRR Lung: bilateral rhonchi, wheezes Abd: soft, nontender Ext: no edema Laboratory Results - last 24 hr 04/18/19 04/18/19 07:05 07:05 WBC 10.1 H RBC 4.03 Hgb 12.2 Hct 36.3 MCV 90.1 MCH 30.3 MCHC 33.7 RDW 13.0 Plt Count 304 MPV 7.7 Absolute Neuts (auto) 9.0 H Neutrophils % 89.6 H Lymphocytes % 6.9 L Monocytes % 3.4 L D Eosinophils % 0.0 Basophils % 0.1 Nucleated RBC % 0 Sodium 136 Potassium 4.4 Chloride 98 Carbon Dioxide 29 Anion Gap 8 BUN 28 H Creatinine 0.9 Est GFR (CKD-EPI)AfAm 69.50 Est GFR (CKD-EPI)NonAf 59.96 Random Glucose 130 H Calcium 8.6 Total Bilirubin 0.6 AST 16 ALT 29 Alkaline Phosphatase 74 Total Protein 6.1 L Albumin 3.1 L A/P Acute COPD Exacerbation h/o Lung Ca s/p lobectomy HTN Hypercholesterolemia Hypothyroidism - Mucinex BID - continue medrol at current dose - inhaled bronchodilators standing and PRN - O2 as needed - DVT prophylaxis - Increase Symbicort to 2 inhalations BID - Spiriva daily Dr Andres Problem List - Problems (1) Lung nodule < 6cm on CT Code(s): R91.1 - SOLITARY PULMONARY NODULE (2) Cough Code(s): R05 - COUGH (3) Hypothyroidism Code(s): E03.9 - HYPOTHYROIDISM, UNSPECIFIED (4) SOB (shortness of breath) Code(s): R06.02 - SHORTNESS OF BREATH (5) CAD (coronary artery disease) Code(s): I25.10 - ATHSCL HEART DISEASE OF [place] CORONARY ARTERY W/O ANG PCTRS (6) COPD exacerbation Code(s): J44.1 - CHRONIC OBSTRUCTIVE PULMONARY DISEASE W (ACUTE) EXACERBATION (7) Diabetes Code(s): E11.9 - TYPE 2 DIABETES MELLITUS WITHOUT COMPLICATIONS (8) H/O: lung cancer Code(s): Z85.118 - PERSONAL HISTORY OF MALIGNANT NEOPLASM OF BRONCHUS AND LUNG (9) HLD (hyperlipidemia) Code(s): E78.5 - HYPERLIPIDEMIA, UNSPECIFIED Qualifiers: Hyperlipidemia type: pure hypercholesterolemia Qualified Code(s): E78.00 - Pure hypercholesterolemia, unspecified; E78.0 - Pure hypercholesterolemia (10) HTN (hypertension) Code(s): I10 - ESSENTIAL (PRIMARY) HYPERTENSION Qualifiers: Hypertension type: essential hypertension Qualified Code(s): I10 - Essential (primary) hypertension
[2019-04-18] MEDS ORDERED: guaiFENesin/CODEINE 5 ML UNIT-DOSE CUPS PO PRN (09:48)
[2019-04-18] MEDS: HEPARIN NA (PORCINE) 5,000 UNITS/ML 1ML VIAL SQ SCH ×2 (09:54→21:09)
[2019-04-18] MEDS: guaiFENesin 600 MG TABLET.ER (FP) PO SCH ×2 (09:59→21:07)
[2019-04-18] MEDS: FUROSEMIDE 40 MG/4 ML INJECTABLE VIAL IVPUSH SCH (09:59)
[2019-04-18] MEDS: ASPIRIN 81 MG CHEWABLE TABLETS PO SCH (09:59)
[2019-04-18] MEDS: LOSARTAN POTASSIUM 50 MG TABLET (FP) PO SCH (09:59)
[2019-04-18] MEDS: TIOTROPIUM BROMIDE 2.5 MCG (SPIRIVA) RESPIMAT INHALER IH SCH (10:05)
[2019-04-18] MEDS: BUDESONIDE/FORMETEROL FUMARATE 160/4.5 mcg INHALER IH SCH ×2 (10:05→21:10)
[2019-04-18] MEDS: ALBUTEROL SO4 0.083% IH SOL 2.5 MG/3 ML VIAL.NEB. NEB SCH ×4 (10:50→20:06)
[2019-04-18 11:37] LABS: ANISOCYTOSIS 0; MACROCYTOSIS 0; PLATELET ESTIMATE NORMAL
--- NOTE | 2019-04-18 20:28 | PN ---
Progress Note, Physician History of Present Illness: No new changes - Current Medication List Current Medications: Active Medications Albuterol Sulfate (Ventolin 0.083% Nebulizer Soln -) 1 amp NEB RQID [facility] Last Admin: 04/18/19 20:06 Dose: 1 amp Albuterol Sulfate (Ventolin 0.083% Nebulizer Soln -) 1 amp NEB Q4H PRN PRN Reason: SHORT OF BREATH/WHEEZING Last Admin: 04/16/19 06:15 Dose: 1 amp Aspirin (Asa -) 81 mg PO DAILY [facility] Last Admin: 04/18/19 09:59 Dose: 81 mg Budesonide/Formoterol Fumarate (Symbicort 160/4.5mcg -) 2 puff IH BID [facility] Last Admin: 04/18/19 10:05 Dose: 2 puff Furosemide (Lasix Injection -) 20 mg IVPUSH DAILY [facility] Last Admin: 04/18/19 09:59 Dose: 20 mg Guaifenesin (Mucinex -) 600 mg PO BID [facility] Last Admin: 04/18/19 09:59 Dose: 600 mg Guaifenesin/Codeine Phosphate (Robitussin Ac -) 5 ml PO Q8H PRN PRN Reason: COUGH Heparin Sodium (Porcine) (Heparin -) 5,000 unit SQ BID [facility] Last Admin: 04/18/19 09:54 Dose: Not Given Levothyroxine Sodium (Synthroid -) 50 mcg PO DAILY@0700 [facility] Last Admin: 04/18/19 06:20 Dose: 50 mcg Losartan Potassium (Cozaar -) 50 mg PO DAILY [facility] Last Admin: 04/18/19 09:59 Dose: 50 mg Methylprednisolone Sodium Succinate (Solu-Medrol -) 40 mg IVPUSH Q6H [facility] Last Admin: 04/18/19 16:30 Dose: 40 mg Rosuvastatin Calcium (Crestor -) 10 mg PO HS [facility] Last Admin: 04/17/19 21:03 Dose: 10 mg Tiotropium [place] (Spiriva Respimat) 2 puff IH DAILY [facility] Last Admin: 04/18/19 10:05 Dose: 2 puff - Objective Vital Signs: Vital Signs Temperature 98.0 F 04/18/19 06:00 Pulse Rate 84 04/18/19 06:00 Respiratory Rate 20 04/18/19 06:00 Blood Pressure 127/71 04/18/19 06:00 O2 Sat by Pulse Oximetry (%) 98 04/18/19 09:00 Neck: Yes: WNL, Supple Cardiovascular: Yes: WNL, Regular Rate and Rhythm Respiratory: Yes: Wheezes Gastrointestinal: Yes: WNL, Normal Bowel Sounds, Soft Labs: CBC, BMP 04/18/19 07:05 04/18/19 07:05 Problem List - Problems (1) COPD exacerbation Assessment/Plan: Cont IV solumedrol Cont nebulizers/symbicort/spiriva Code(s): J44.1 - CHRONIC OBSTRUCTIVE PULMONARY DISEASE W (ACUTE) EXACERBATION (2) HTN (hypertension) Assessment/Plan: Bp stable Cont asa/losartan Code(s): I10 - ESSENTIAL (PRIMARY) HYPERTENSION Qualifiers: Hypertension type: essential hypertension Qualified Code(s): I10 - Essential (primary) hypertension (3) Hypothyroidism Assessment/Plan: Cont levothyroxine Code(s): E03.9 - HYPOTHYROIDISM, UNSPECIFIED (4) Diabetes Code(s): E11.9 - TYPE 2 DIABETES MELLITUS WITHOUT COMPLICATIONS (5) H/O: lung cancer Assessment/Plan: S/P lobectomy Code(s): Z85.118 - PERSONAL HISTORY OF MALIGNANT NEOPLASM OF BRONCHUS AND LUNG (6) HLD (hyperlipidemia) Assessment/Plan: Cont crestor Code(s): E78.5 - HYPERLIPIDEMIA, UNSPECIFIED Qualifiers: Hyperlipidemia type: pure hypercholesterolemia Qualified Code(s): E78.00 - Pure hypercholesterolemia, unspecified; E78.0 - Pure hypercholesterolemia (7) CAD (coronary artery disease) Code(s): I25.10 - ATHSCL HEART DISEASE OF [place] CORONARY ARTERY W/O ANG PCTRS
[2019-04-18] MEDS ORDERED: IBUPROFEN 400 MG TABLET (FP) PO ONE (20:45)
[2019-04-18] MEDS: ROSUVASTATIN CA 10 MG TABLET (FP) PO SCH (21:07)
--- NOTE | 2019-04-18 21:49 | PN ---
Progress Note, Physician Chief Complaint: Pt A&OX3; OOB in chair; feels better with nebulizer Rx. Her daughter and son-in- law are at bedside.SHe is happy she may be going home on Monday. History of Present Illness: 83yo female (b. [place]ana) with hx of lung ca s/p resection in remission, COPD , now admitted with sob and cough. Recent travel to [place]. Pt dx with a DVT to R calf on monday - not on anticoag. States R leg pain is worse, now with increasing sob. Using her inhalers at home - spiriva, breo, albuterol nebs/ inhaler. States cough started monday - her daughter started her on azithromycin for the cough on monday. Worsening sob this AM. No cp. Woke up at 4am unable to breath. No LE edema. No abd pain. No f/c. No rhinorrhea or sore throat. No n/v/ d. No other complaints. - Current Medication List Current Medications: Active Medications Albuterol Sulfate (Ventolin 0.083% Nebulizer Soln -) 1 amp NEB RQID [facility] Last Admin: 04/18/19 20:06 Dose: 1 amp Albuterol Sulfate (Ventolin 0.083% Nebulizer Soln -) 1 amp NEB Q4H PRN PRN Reason: SHORT OF BREATH/WHEEZING Last Admin: 04/16/19 06:15 Dose: 1 amp Aspirin (Asa -) 81 mg PO DAILY [facility] Last Admin: 04/18/19 09:59 Dose: 81 mg Budesonide/Formoterol Fumarate (Symbicort 160/4.5mcg -) 2 puff IH BID [facility] Last Admin: 04/18/19 21:10 Dose: 2 puff Furosemide (Lasix Injection -) 20 mg IVPUSH DAILY [facility] Last Admin: 04/18/19 09:59 Dose: 20 mg Guaifenesin (Mucinex -) 600 mg PO BID [facility] Last Admin: 04/18/19 21:07 Dose: 600 mg Guaifenesin/Codeine Phosphate (Robitussin Ac -) 5 ml PO Q8H PRN PRN Reason: COUGH Heparin Sodium (Porcine) (Heparin -) 5,000 unit SQ BID [facility] Last Admin: 04/18/19 21:09 Dose: Not Given Levothyroxine Sodium (Synthroid -) 50 mcg PO DAILY@0700 [facility] Last Admin: 04/18/19 06:20 Dose: 50 mcg Losartan Potassium (Cozaar -) 50 mg PO DAILY [facility] Last Admin: 04/18/19 09:59 Dose: 50 mg Methylprednisolone Sodium Succinate (Solu-Medrol -) 40 mg IVPUSH Q6H [facility] Last Admin: 04/18/19 16:30 Dose: 40 mg Rosuvastatin Calcium (Crestor -) 10 mg PO HS [facility] Last Admin: 04/18/19 21:07 Dose: 10 mg Tiotropium [place] (Spiriva Respimat) 2 puff IH DAILY [facility] Last Admin: 04/18/19 10:05 Dose: 2 puff - Objective Vital Signs: Vital Signs Temperature 98.0 F 04/18/19 06:00 Pulse Rate 84 04/18/19 06:00 Respiratory Rate 20 04/18/19 06:00 Blood Pressure 127/71 04/18/19 06:00 O2 Sat by Pulse Oximetry (%) 98 04/18/19 09:00 Constitutional: Yes: Calm Eyes: Yes: WNL Labs: CBC, BMP 04/18/19 07:05 04/18/19 07:05 Problem List - Problems (1) Cough Code(s): R05 - COUGH (2) Lung nodule < 6cm on CT Code(s): R91.1 - SOLITARY PULMONARY NODULE (3) SOB (shortness of breath) Code(s): R06.02 - SHORTNESS OF BREATH (4) CAD (coronary artery disease) Code(s): I25.10 - ATHSCL HEART DISEASE OF [place] CORONARY ARTERY W/O ANG PCTRS (5) COPD exacerbation Code(s): J44.1 - CHRONIC OBSTRUCTIVE PULMONARY DISEASE W (ACUTE) EXACERBATION (6) Diastolic CHF Code(s): I50.30 - UNSPECIFIED DIASTOLIC (CONGESTIVE) HEART FAILURE (7) HLD (hyperlipidemia) Code(s): E78.5 - HYPERLIPIDEMIA, UNSPECIFIED Qualifiers: Hyperlipidemia type: pure hypercholesterolemia Qualified Code(s): E78.00 - Pure hypercholesterolemia, unspecified; E78.0 - Pure hypercholesterolemia (8) HTN (hypertension) Code(s): I10 - ESSENTIAL (PRIMARY) HYPERTENSION Qualifiers: Hypertension type: essential hypertension Qualified Code(s): I10 - Essential (primary) hypertension
[2019-04-19] MEDS: ALBUTEROL SO4 0.083% IH SOL 2.5 MG/3 ML VIAL.NEB. NEB PRN (00:15)
[2019-04-19] MEDS: methylPREDNISolone NA SUCC 40 MG/1 ML VIAL IVPUSH SCH ×4 (04:03→22:14)
[2019-04-19] MEDS: LEVOTHYROXINE NA 50 MCG TABLET (FP) PO SCH (06:14)
[2019-04-19] MEDS: ALBUTEROL SO4 0.083% IH SOL 2.5 MG/3 ML VIAL.NEB. NEB SCH ×4 (08:31→20:29)
[2019-04-19] MEDS: LOSARTAN POTASSIUM 50 MG TABLET (FP) PO SCH (10:09)
[2019-04-19] MEDS: HEPARIN NA (PORCINE) 5,000 UNITS/ML 1ML VIAL SQ SCH ×2 (10:09→22:15)
[2019-04-19] MEDS: BUDESONIDE/FORMETEROL FUMARATE 160/4.5 mcg INHALER IH SCH ×2 (10:09→22:15)
[2019-04-19] MEDS: TIOTROPIUM BROMIDE 2.5 MCG (SPIRIVA) RESPIMAT INHALER IH SCH (10:09)
[2019-04-19] MEDS: guaiFENesin 600 MG TABLET.ER (FP) PO SCH ×2 (10:09→22:14)
[2019-04-19] MEDS: FUROSEMIDE 40 MG/4 ML INJECTABLE VIAL IVPUSH SCH (10:10)
[2019-04-19] MEDS: ASPIRIN 81 MG CHEWABLE TABLETS PO SCH (10:10)
--- NOTE | 2019-04-19 15:39 | PN ---
Progress Note, Physician History of Present Illness: PULMONARY ALERT,STILL CONGESTED,+ COUGH,WORSE AT NIGHT - Current Medication List Current Medications: Active Medications Albuterol Sulfate (Ventolin 0.083% Nebulizer Soln -) 1 amp NEB RQID [facility] Last Admin: 04/19/19 11:36 Dose: 1 amp Albuterol Sulfate (Ventolin 0.083% Nebulizer Soln -) 1 amp NEB Q4H PRN PRN Reason: SHORT OF BREATH/WHEEZING Last Admin: 04/19/19 00:15 Dose: 1 amp Aspirin (Asa -) 81 mg PO DAILY [facility] Last Admin: 04/19/19 10:10 Dose: 81 mg Budesonide/Formoterol Fumarate (Symbicort 160/4.5mcg -) 2 puff IH BID [facility] Last Admin: 04/19/19 10:09 Dose: 2 puff Furosemide (Lasix Injection -) 20 mg IVPUSH DAILY [facility] Last Admin: 04/19/19 10:10 Dose: 20 mg Guaifenesin (Mucinex -) 600 mg PO BID [facility] Last Admin: 04/19/19 10:09 Dose: 600 mg Guaifenesin/Codeine Phosphate (Robitussin Ac -) 5 ml PO Q8H PRN PRN Reason: COUGH Heparin Sodium (Porcine) (Heparin -) 5,000 unit SQ BID [facility] Last Admin: 04/19/19 10:09 Dose: Not Given Levothyroxine Sodium (Synthroid -) 50 mcg PO DAILY@0700 [facility] Last Admin: 04/19/19 06:14 Dose: 50 mcg Losartan Potassium (Cozaar -) 50 mg PO DAILY [facility] Last Admin: 04/19/19 10:09 Dose: 50 mg Methylprednisolone Sodium Succinate (Solu-Medrol -) 40 mg IVPUSH Q6H [facility] Last Admin: 04/19/19 10:10 Dose: 40 mg Rosuvastatin Calcium (Crestor -) 10 mg PO HS [facility] Last Admin: 04/18/19 21:07 Dose: 10 mg Tiotropium [place] (Spiriva Respimat) 2 puff IH DAILY [facility] Last Admin: 04/19/19 10:09 Dose: 2 puff - Objective Vital Signs: Vital Signs Temperature 98.7 F 04/19/19 10:00 Pulse Rate 95 H 04/19/19 10:00 Respiratory Rate 20 04/19/19 10:00 Blood Pressure 126/62 04/19/19 10:00 O2 Sat by Pulse Oximetry (%) 97 04/19/19 09:00 Constitutional: Yes: Well Nourished, Calm Eyes: Yes: WNL HENT: Yes: WNL Neck: Yes: WNL Cardiovascular: Yes: Regular Rate and Rhythm, S1, S2 Respiratory: Yes: Rhonchi, Wheezes (BILATERAL WHEEZES AND RHONCHI) Gastrointestinal: Yes: Normal Bowel Sounds, Soft Extremities: Yes: WNL Edema: No Labs: Problem List - Problems (1) Cough Code(s): R05 - COUGH (2) Hypothyroidism Code(s): E03.9 - HYPOTHYROIDISM, UNSPECIFIED (3) SOB (shortness of breath) Code(s): R06.02 - SHORTNESS OF BREATH (4) CAD (coronary artery disease) Code(s): I25.10 - ATHSCL HEART DISEASE OF [place] CORONARY ARTERY W/O ANG PCTRS (5) COPD exacerbation Code(s): J44.1 - CHRONIC OBSTRUCTIVE PULMONARY DISEASE W (ACUTE) EXACERBATION (6) Diabetes Code(s): E11.9 - TYPE 2 DIABETES MELLITUS WITHOUT COMPLICATIONS (7) H/O: lung cancer Code(s): Z85.118 - PERSONAL HISTORY OF MALIGNANT NEOPLASM OF BRONCHUS AND LUNG (8) HLD (hyperlipidemia) Code(s): E78.5 - HYPERLIPIDEMIA, UNSPECIFIED Qualifiers: Hyperlipidemia type: pure hypercholesterolemia Qualified Code(s): E78.00 - Pure hypercholesterolemia, unspecified; E78.0 - Pure hypercholesterolemia Assessment/Plan A/P Acute COPD Exacerbation h/o Lung Ca s/p lobectomy HTN Hypercholesterolemia Hypothyroidism - continue medrol to q6h - inhaled bronchodilators standing and PRN - O2 as needed - DVT prophylaxis - add zithromax [address] GAMEZ
[2019-04-19] MEDS ORDERED: PT OWN MED DRAWER 7, Y5N ONE (17:04)
[2019-04-19] MEDS: AZITHROMYCIN 250 MG TABLET PO SCH (17:22)
--- NOTE | 2019-04-19 20:37 | PN ---
Progress Note, Physician History of Present Illness: No new changes - Current Medication List Current Medications: Active Medications Albuterol Sulfate (Ventolin 0.083% Nebulizer Soln -) 1 amp NEB RQID [facility] Last Admin: 04/19/19 20:29 Dose: 1 amp Albuterol Sulfate (Ventolin 0.083% Nebulizer Soln -) 1 amp NEB Q4H PRN PRN Reason: SHORT OF BREATH/WHEEZING Last Admin: 04/19/19 00:15 Dose: 1 amp Aspirin (Asa -) 81 mg PO DAILY [facility] Last Admin: 04/19/19 10:10 Dose: 81 mg Azithromycin (Zithromax -) 250 mg PO DAILY [facility] Last Admin: 04/19/19 17:22 Dose: 250 mg Budesonide/Formoterol Fumarate (Symbicort 160/4.5mcg -) 2 puff IH BID [facility] Last Admin: 04/19/19 10:09 Dose: 2 puff Furosemide (Lasix Injection -) 20 mg IVPUSH DAILY [facility] Last Admin: 04/19/19 10:10 Dose: 20 mg Guaifenesin (Mucinex -) 600 mg PO BID [facility] Last Admin: 04/19/19 10:09 Dose: 600 mg Guaifenesin/Codeine Phosphate (Robitussin Ac -) 5 ml PO Q8H PRN PRN Reason: COUGH Heparin Sodium (Porcine) (Heparin -) 5,000 unit SQ BID [facility] Last Admin: 04/19/19 10:09 Dose: Not Given Levothyroxine Sodium (Synthroid -) 50 mcg PO DAILY@0700 [facility] Last Admin: 04/19/19 06:14 Dose: 50 mcg Losartan Potassium (Cozaar -) 50 mg PO DAILY [facility] Last Admin: 04/19/19 10:09 Dose: 50 mg Methylprednisolone Sodium Succinate (Solu-Medrol -) 40 mg IVPUSH Q6H [facility] Last Admin: 04/19/19 17:13 Dose: 40 mg Rosuvastatin Calcium (Crestor -) 10 mg PO HS [facility] Last Admin: 04/18/19 21:07 Dose: 10 mg Tiotropium [place] (Spiriva Respimat) 2 puff IH DAILY [facility] Last Admin: 04/19/19 10:09 Dose: 2 puff - Objective Vital Signs: Vital Signs Temperature 98.7 F 04/19/19 10:00 Pulse Rate 95 H 04/19/19 10:00 Respiratory Rate 20 04/19/19 10:00 Blood Pressure 126/62 04/19/19 10:00 O2 Sat by Pulse Oximetry (%) 97 04/19/19 09:00 Cardiovascular: Yes: WNL, Regular Rate and Rhythm Respiratory: Yes: Wheezes Gastrointestinal: Yes: WNL, Normal Bowel Sounds, Soft Edema: No Labs: CBC, BMP 04/18/19 07:05 04/18/19 07:05 Problem List - Problems (1) COPD exacerbation Assessment/Plan: Cont IV solumedrol Cont nebulizers/symbicort/spiriva Code(s): J44.1 - CHRONIC OBSTRUCTIVE PULMONARY DISEASE W (ACUTE) EXACERBATION (2) HTN (hypertension) Assessment/Plan: Bp stable Cont asa/losartan Code(s): I10 - ESSENTIAL (PRIMARY) HYPERTENSION Qualifiers: Hypertension type: essential hypertension Qualified Code(s): I10 - Essential (primary) hypertension (3) Hypothyroidism Assessment/Plan: Cont levothyroxine Code(s): E03.9 - HYPOTHYROIDISM, UNSPECIFIED (4) Diabetes Code(s): E11.9 - TYPE 2 DIABETES MELLITUS WITHOUT COMPLICATIONS (5) H/O: lung cancer Assessment/Plan: S/P lobectomy Code(s): Z85.118 - PERSONAL HISTORY OF MALIGNANT NEOPLASM OF BRONCHUS AND LUNG (6) HLD (hyperlipidemia) Assessment/Plan: Cont crestor Code(s): E78.5 - HYPERLIPIDEMIA, UNSPECIFIED Qualifiers: Hyperlipidemia type: pure hypercholesterolemia Qualified Code(s): E78.00 - Pure hypercholesterolemia, unspecified; E78.0 - Pure hypercholesterolemia (7) CAD (coronary artery disease) Code(s): I25.10 - ATHSCL HEART DISEASE OF [place] CORONARY ARTERY W/O ANG PCTRS
[2019-04-19] MEDS: ROSUVASTATIN CA 10 MG TABLET (FP) PO SCH (22:14)
[2019-04-20] MEDS: methylPREDNISolone NA SUCC 40 MG/1 ML VIAL IVPUSH SCH ×4 (04:24→22:39)
[2019-04-20] MEDS: LEVOTHYROXINE NA 50 MCG TABLET (FP) PO SCH (06:21)
[2019-04-20] MEDS: ALBUTEROL SO4 0.083% IH SOL 2.5 MG/3 ML VIAL.NEB. NEB SCH (08:00)
[2019-04-20] MEDS ORDERED: PT OWN MED DRAWER 7, Y5N ONE (09:46)
[2019-04-20] MEDS: AZITHROMYCIN 250 MG TABLET PO SCH (09:48)
[2019-04-20] MEDS: guaiFENesin 600 MG TABLET.ER (FP) PO SCH ×2 (09:48→22:39)
[2019-04-20] MEDS: FUROSEMIDE 40 MG/4 ML INJECTABLE VIAL IVPUSH SCH (09:48)
[2019-04-20] MEDS: LOSARTAN POTASSIUM 50 MG TABLET (FP) PO SCH (09:48)
[2019-04-20] MEDS: ASPIRIN 81 MG CHEWABLE TABLETS PO SCH (09:48)
[2019-04-20] MEDS: HEPARIN NA (PORCINE) 5,000 UNITS/ML 1ML VIAL SQ SCH (09:50)
[2019-04-20] MEDS: TIOTROPIUM BROMIDE 2.5 MCG (SPIRIVA) RESPIMAT INHALER IH SCH (09:50)
[2019-04-20] MEDS: BUDESONIDE/FORMETEROL FUMARATE 160/4.5 mcg INHALER IH SCH ×2 (09:51→22:39)
--- NOTE | 2019-04-20 11:24 | PN ---
Progress Note, Physician History of Present Illness: PULMONARY ALERT,FEELING BETTER,LESS CONGESTED,+ INCREASED COUGH ,CONGESTION AT NIGHT - Current Medication List Current Medications: Active Medications Albuterol Sulfate (Ventolin 0.083% Nebulizer Soln -) 1 amp NEB RQID [facility] Last Admin: 04/20/19 08:00 Dose: 1 amp Aspirin (Asa -) 81 mg PO DAILY [facility] Last Admin: 04/20/19 09:48 Dose: 81 mg Azithromycin (Zithromax -) 250 mg PO DAILY [facility] Last Admin: 04/20/19 09:48 Dose: 250 mg Budesonide/Formoterol Fumarate (Symbicort 160/4.5mcg -) 2 puff IH BID [facility] Last Admin: 04/20/19 09:51 Dose: 2 puff Furosemide (Lasix Injection -) 20 mg IVPUSH DAILY [facility] Last Admin: 04/20/19 09:48 Dose: 20 mg Guaifenesin (Mucinex -) 600 mg PO BID [facility] Last Admin: 04/20/19 09:48 Dose: 600 mg Guaifenesin/Codeine Phosphate (Robitussin Ac -) 5 ml PO Q8H PRN PRN Reason: COUGH Heparin Sodium (Porcine) (Heparin -) 5,000 unit SQ BID [facility] Last Admin: 04/20/19 09:50 Dose: Not Given Levothyroxine Sodium (Synthroid -) 50 mcg PO DAILY@0700 [facility] Last Admin: 04/20/19 06:21 Dose: 50 mcg Losartan Potassium (Cozaar -) 50 mg PO DAILY [facility] Last Admin: 04/20/19 09:48 Dose: 50 mg Methylprednisolone Sodium Succinate (Solu-Medrol -) 40 mg IVPUSH Q6H [facility] Last Admin: 04/20/19 09:48 Dose: 40 mg Rosuvastatin Calcium (Crestor -) 10 mg PO HS [facility] Last Admin: 04/19/19 22:14 Dose: 10 mg Tiotropium [place] (Spiriva Respimat) 2 puff IH DAILY [facility] Last Admin: 04/20/19 09:50 Dose: 2 puff - Objective Vital Signs: Vital Signs Temperature 98 F 04/20/19 08:49 Pulse Rate 92 H 04/20/19 08:49 Respiratory Rate 20 04/20/19 08:49 Blood Pressure 107/67 04/20/19 08:49 O2 Sat by Pulse Oximetry (%) 98 05/31/19 21:00 Constitutional: Yes: Well Nourished, Calm Eyes: Yes: WNL HENT: Yes: WNL Neck: Yes: WNL Cardiovascular: Yes: Regular Rate and Rhythm, S1, S2 Respiratory: Yes: Rhonchi (LESS WHEEZES AND RHONCHI BILATERALLY), Wheezes Gastrointestinal: Yes: Normal Bowel Sounds, Soft Extremities: Yes: WNL Edema: No Labs: CBC, BMP Problem List - Problems (1) Cough Code(s): R05 - COUGH (2) Hypothyroidism Code(s): E03.9 - HYPOTHYROIDISM, UNSPECIFIED (3) SOB (shortness of breath) Code(s): R06.02 - SHORTNESS OF BREATH (4) CAD (coronary artery disease) Code(s): I25.10 - ATHSCL HEART DISEASE OF [place] CORONARY ARTERY W/O ANG PCTRS (5) COPD exacerbation Code(s): J44.1 - CHRONIC OBSTRUCTIVE PULMONARY DISEASE W (ACUTE) EXACERBATION (6) Diabetes Code(s): E11.9 - TYPE 2 DIABETES MELLITUS WITHOUT COMPLICATIONS (7) H/O: lung cancer Code(s): Z85.118 - PERSONAL HISTORY OF MALIGNANT NEOPLASM OF BRONCHUS AND LUNG (8) HLD (hyperlipidemia) Code(s): E78.5 - HYPERLIPIDEMIA, UNSPECIFIED Qualifiers: Hyperlipidemia type: pure hypercholesterolemia Qualified Code(s): E78.00 - Pure hypercholesterolemia, unspecified; E78.0 - Pure hypercholesterolemia Assessment/Plan A/P Acute COPD Exacerbation h/o Lung Ca s/p lobectomy HTN Hypercholesterolemia Hypothyroidism - medrol to q6h - inhaled bronchodilators standing and PRN - O2 as needed - DVT prophylaxis - add zithromax [address] GAMEZ
--- NOTE | 2019-04-20 12:27 | PN ---
Progress Note, Physician Chief Complaint: coughing at night History of Present Illness: Patient is an 83yo female with hx of lung ca s/p resection (in remission), COPD. She is being admitted for sob and cough and was found to be in acute COPD exacerbation. Her other medical history includes hypertension, high cholesterol, and hypothyroidism. - Current Medication List Current Medications: Active Medications Aspirin (Asa -) 81 mg PO DAILY [facility] Last Admin: 04/20/19 09:48 Dose: 81 mg Azithromycin (Zithromax -) 250 mg PO DAILY [facility] Last Admin: 04/20/19 09:48 Dose: 250 mg Budesonide/Formoterol Fumarate (Symbicort 160/4.5mcg -) 2 puff IH BID [facility] Last Admin: 04/20/19 09:51 Dose: 2 puff Furosemide (Lasix Injection -) 20 mg IVPUSH DAILY [facility] Last Admin: 04/20/19 09:48 Dose: 20 mg Guaifenesin (Mucinex -) 600 mg PO BID [facility] Last Admin: 04/20/19 09:48 Dose: 600 mg Guaifenesin/Codeine Phosphate (Robitussin Ac -) 5 ml PO Q8H PRN PRN Reason: COUGH Heparin Sodium (Porcine) (Heparin -) 5,000 unit SQ BID [facility] Last Admin: 04/20/19 09:50 Dose: Not Given Levothyroxine Sodium (Synthroid -) 50 mcg PO DAILY@0700 [facility] Last Admin: 04/20/19 06:21 Dose: 50 mcg Losartan Potassium (Cozaar -) 50 mg PO DAILY [facility] Last Admin: 04/20/19 09:48 Dose: 50 mg Methylprednisolone Sodium Succinate (Solu-Medrol -) 40 mg IVPUSH Q6H [facility] Last Admin: 04/20/19 09:48 Dose: 40 mg Rosuvastatin Calcium (Crestor -) 10 mg PO HS [facility] Last Admin: 04/19/19 22:14 Dose: 10 mg Tiotropium [place] (Spiriva Respimat) 2 puff IH DAILY [facility] Last Admin: 04/20/19 09:50 Dose: 2 puff - Objective Vital Signs: Vital Signs Temperature 98 F 04/20/19 08:49 Pulse Rate 92 H 04/20/19 08:49 Respiratory Rate 20 04/20/19 08:49 Blood Pressure 107/67 04/20/19 08:49 O2 Sat by Pulse Oximetry (%) 98 04/19/19 21:00 Constitutional: Yes: Well Nourished, No Distress Eyes: Yes: WNL HENT: Yes: WNL Neck: Yes: WNL Cardiovascular: Yes: Regular Rate and Rhythm Respiratory: Yes: Accessory Muscle Use, Cough, Orthopnea, Poor Air Entry, Rales , Rhonchi, Tachypnea Gastrointestinal: Yes: Normal Bowel Sounds ...Rectal Exam: Yes: Deferred Genitourinary: Yes: WNL Breast(s): Yes: WNL Integumentary: Yes: WNL Wound/Incision: Yes: Clean/Dry Neurological: Yes: WNL, Alert, Oriented ...Motor Strength: WNL Psychiatric: Yes: Alert, Oriented Labs: CBC, BMP 04/18/19 07:05 04/18/19 07:05 Problem List - Problems (1) COPD exacerbation Assessment/Plan: continue iv solumedrol, nebulizers, symbicort/spiriva. protonix while on steriods continue supplemental oxygen Code(s): J44.1 - CHRONIC OBSTRUCTIVE PULMONARY DISEASE W (ACUTE) EXACERBATION (2) Cough Assessment/Plan: in the setting of acute COPD. continue supplemental oxygen started on mucinex Code(s): R05 - COUGH (3) Hypothyroidism Assessment/Plan: Cont levothyroxine Code(s): E03.9 - HYPOTHYROIDISM, UNSPECIFIED (4) CAD (coronary artery disease) Code(s): I25.10 - ATHSCL HEART DISEASE OF [place] CORONARY ARTERY W/O ANG PCTRS (5) Diabetes Assessment/Plan: elevated serum glucose. Monitor BGMs monitor before meals. started on novolog sliding scale. may need tighter sliding scale in the setting of steriods Code(s): E11.9 - TYPE 2 DIABETES MELLITUS WITHOUT COMPLICATIONS (6) HTN (hypertension) Assessment/Plan: Bp stable. Cont asa/losartan Code(s): I10 - ESSENTIAL (PRIMARY) HYPERTENSION Qualifiers: Hypertension type: essential hypertension Qualified Code(s): I10 - Essential (primary) hypertension (7) Lung cancer Assessment/Plan: s/p lobetomy, monitor oxygen saturations. Code(s): C34.90 - MALIGNANT NEOPLASM OF UNSP PART OF UNSP BRONCHUS OR LUNG (8) HLD (hyperlipidemia) Assessment/Plan: Cont crestor Code(s): E78.5 - HYPERLIPIDEMIA, UNSPECIFIED (9) Prophylactic measure Assessment/Plan: fen tolerating po monitor electrolytes low salt diet prophy heparin protonix full code Code(s): Z29.9 - ENCOUNTER FOR PROPHYLACTIC MEASURES, UNSPECIFIED Visit type - Emergency Visit Emergency Visit: Yes ED Registration Date: 04/13/19 Care time: The patient presented to the Emergency Department on the above date and was hospitalized for further evaluation of their emergent condition. - New Patient This patient is new to me today: Yes Date on this admission: 04/20/19 - Critical Care Critical Care patient: No - Discharge Referral Referred to [facility] No
[2019-04-20] MEDS: ROSUVASTATIN CA 10 MG TABLET (FP) PO SCH (22:39)
[2019-04-20] MEDS: INSULIN SLIDING SCALE (NOVOLOG) 1 VIAL SQ SCH (22:49)
[2019-04-20] MEDS ORDERED: ALBUTEROL SO4 0.083% IH SOL 2.5 MG/3 ML VIAL.NEB. NEB ONE (23:47)
[2019-04-21] MEDS: ALBUTEROL SO4 0.083% IH SOL 2.5 MG/3 ML VIAL.NEB. NEB PRN ×5 (00:05→19:53)
[2019-04-21] MEDS: methylPREDNISolone NA SUCC 40 MG/1 ML VIAL IVPUSH SCH ×4 (04:50→21:50)
[2019-04-21] MEDS: INSULIN SLIDING SCALE (NOVOLOG) 1 VIAL SQ SCH ×4 (06:32→21:50)
[2019-04-21] MEDS: LEVOTHYROXINE NA 50 MCG TABLET (FP) PO SCH (06:32)
[2019-04-21 06:52] LABS: HEMATOCRIT 35.5 % (32.4-45.2); HEMOGLOBIN 11.6 GM/dL (10.7-15.3); LYMPH % 3.9 % (8-40); MCH 29.8 pg (25.7-33.7); MCHC 32.5 g/dl (32.0-36.0); MEAN CELL VOLUME 91.6 fl (80-96); MEAN PLT VOLUME 7.6 fl (7.5-11.1); MONO % 2.8 % (3.8-10.2); NEUT % 93.3 % (42.8-82.8); PLATELET COUNT 274 K/MM3 (134-434); RBC 3.88 M/mm3 (3.60-5.2); RDW 13.2 % (11.6-15.6)
[2019-04-21 07:20] LABS: ALBUMIN 2.8 g/dl (3.4-5.0); BILIRUBIN,TOTAL 0.8 mg/dL (0.2-1); CALCIUM 8.2 mg/dL (8.5-10.1); MAGNESIUM 2.8 mg/dL (1.8-2.4); POTASSIUM 4.4 mmol/L (3.5-5.1); TOT PROT 5.3 g/dl (6.4-8.2)
[2019-04-21] MEDS: TIOTROPIUM BROMIDE 2.5 MCG (SPIRIVA) RESPIMAT INHALER IH SCH (10:00)
[2019-04-21] MEDS: BUDESONIDE/FORMETEROL FUMARATE 160/4.5 mcg INHALER IH SCH ×2 (10:00→21:57)
[2019-04-21] MEDS: LOSARTAN POTASSIUM 50 MG TABLET (FP) PO SCH (10:02)
[2019-04-21] MEDS: ASPIRIN 81 MG CHEWABLE TABLETS PO SCH (10:02)
[2019-04-21] MEDS: AZITHROMYCIN 250 MG TABLET PO SCH (10:02)
[2019-04-21] MEDS: FUROSEMIDE 40 MG/4 ML INJECTABLE VIAL IVPUSH SCH (10:02)
[2019-04-21] MEDS: PANTOPRAZOLE 40 MG TABLET (FP) PO SCH (10:02)
[2019-04-21] MEDS: guaiFENesin 600 MG TABLET.ER (FP) PO SCH ×2 (10:02→21:50)
[2019-04-21 11:44] LABS: ANISOCYTOSIS 0; MACROCYTOSIS 0; PLATELET ESTIMATE NORMAL
--- NOTE | 2019-04-21 14:22 | PN ---
Progress Note, Physician History of Present Illness: PULMONARY ALERT,LESS DYSPNEIC,LESS CONGESTED - Current Medication List Current Medications: Active Medications Albuterol Sulfate (Ventolin 0.083% Nebulizer Soln -) 1 amp NEB Q6H PRN PRN Reason: SHORT OF BREATH/WHEEZING Last Admin: 04/21/19 11:05 Dose: 1 amp Aspirin (Asa -) 81 mg PO DAILY [facility] Last Admin: 04/21/19 10:02 Dose: 81 mg Azithromycin (Zithromax -) 250 mg PO DAILY [facility] Last Admin: 04/21/19 10:02 Dose: 250 mg Budesonide/Formoterol Fumarate (Symbicort 160/4.5mcg -) 2 puff IH BID [facility] Last Admin: 04/21/19 10:00 Dose: 2 puff Furosemide (Lasix Injection -) 20 mg IVPUSH DAILY [facility] Last Admin: 04/21/19 10:02 Dose: 20 mg Guaifenesin (Mucinex -) 600 mg PO BID [facility] Last Admin: 04/21/19 10:02 Dose: 600 mg Insulin Aspart (Novolog Vial Sliding Scale -) 1 vial SQ [facility]; Protocol Last Admin: 04/21/19 11:43 Dose: 2 units Levothyroxine Sodium (Synthroid -) 50 mcg PO DAILY@0700 [facility] Last Admin: 04/21/19 06:32 Dose: 50 mcg Losartan Potassium (Cozaar -) 50 mg PO DAILY [facility] Last Admin: 04/21/19 10:02 Dose: 50 mg Methylprednisolone Sodium Succinate (Solu-Medrol -) 40 mg IVPUSH Q6H [facility] Last Admin: 04/21/19 10:03 Dose: 40 mg Pantoprazole Sodium (Protonix -) 40 mg PO DAILY [facility] Last Admin: 04/21/19 10:02 Dose: 40 mg Rosuvastatin Calcium (Crestor -) 10 mg PO HS [facility] Last Admin: 04/20/19 22:39 Dose: 10 mg Tiotropium [place] (Spiriva Respimat) 2 puff IH DAILY [facility] Last Admin: 04/21/19 10:00 Dose: 2 puff - Objective Vital Signs: Vital Signs Temperature 98 F 04/21/19 09:00 Pulse Rate 106 H 04/21/19 09:00 Respiratory Rate 20 04/21/19 09:00 Blood Pressure 127/72 04/21/19 09:00 O2 Sat by Pulse Oximetry (%) 95 04/21/19 09:00 Constitutional: Yes: Well Nourished, Calm Eyes: Yes: WNL HENT: Yes: WNL Neck: Yes: WNL Cardiovascular: Yes: Regular Rate and Rhythm, S1, S2 Respiratory: Yes: Wheezes (PATRICIO WHEEZES) Gastrointestinal: Yes: Normal Bowel Sounds, Soft Extremities: Yes: WNL Edema: No Labs: CBC, BMP 04/21/19 06:30 04/21/19 06:30 Problem List - Problems (1) Cough Code(s): R05 - COUGH (2) Hypothyroidism Code(s): E03.9 - HYPOTHYROIDISM, UNSPECIFIED (3) SOB (shortness of breath) Code(s): R06.02 - SHORTNESS OF BREATH (4) CAD (coronary artery disease) Code(s): I25.10 - ATHSCL HEART DISEASE OF [place] CORONARY ARTERY W/O ANG PCTRS (5) COPD exacerbation Code(s): J44.1 - CHRONIC OBSTRUCTIVE PULMONARY DISEASE W (ACUTE) EXACERBATION (6) Diabetes Code(s): E11.9 - TYPE 2 DIABETES MELLITUS WITHOUT COMPLICATIONS (7) H/O: lung cancer Code(s): Z85.118 - PERSONAL HISTORY OF MALIGNANT NEOPLASM OF BRONCHUS AND LUNG (8) HLD (hyperlipidemia) Code(s): E78.5 - HYPERLIPIDEMIA, UNSPECIFIED Qualifiers: Hyperlipidemia type: pure hypercholesterolemia Qualified Code(s): E78.00 - Pure hypercholesterolemia, unspecified; E78.0 - Pure hypercholesterolemia Assessment/Plan A/P Acute COPD Exacerbation h/o Lung Ca s/p lobectomy HTN Hypercholesterolemia Hypothyroidism - medrol to q6h wiil start taper in am - inhaled bronchodilators standing and PRN - O2 as needed - DVT prophylaxis - add zithromax [address] GAMEZ
[2019-04-21] MEDS: ROSUVASTATIN CA 10 MG TABLET (FP) PO SCH (21:50)
--- NOTE | 2019-04-21 22:46 | PN ---
Progress Note, Physician - Current Medication List Current Medications: Active Medications Albuterol Sulfate (Ventolin 0.083% Nebulizer Soln -) 1 amp NEB Q6H PRN PRN Reason: SHORT OF BREATH/WHEEZING Last Admin: 04/21/19 19:53 Dose: 1 amp Aspirin (Asa -) 81 mg PO DAILY [facility] Last Admin: 04/21/19 10:02 Dose: 81 mg Azithromycin (Zithromax -) 250 mg PO DAILY [facility] Last Admin: 04/21/19 10:02 Dose: 250 mg Budesonide/Formoterol Fumarate (Symbicort 160/4.5mcg -) 2 puff IH BID [facility] Last Admin: 04/21/19 21:57 Dose: 2 puff Furosemide (Lasix Injection -) 20 mg IVPUSH DAILY [facility] Last Admin: 04/21/19 10:02 Dose: 20 mg Guaifenesin (Mucinex -) 600 mg PO BID [facility] Last Admin: 04/21/19 21:50 Dose: 600 mg Insulin Aspart (Novolog Vial Sliding Scale -) 1 vial SQ [facility]; Protocol Last Admin: 04/21/19 21:50 Dose: 2 units Levothyroxine Sodium (Synthroid -) 50 mcg PO DAILY@0700 [facility] Last Admin: 04/21/19 06:32 Dose: 50 mcg Losartan Potassium (Cozaar -) 50 mg PO DAILY [facility] Last Admin: 04/21/19 10:02 Dose: 50 mg Methylprednisolone Sodium Succinate (Solu-Medrol -) 40 mg IVPUSH Q6H [facility] Last Admin: 04/21/19 21:50 Dose: 40 mg Pantoprazole Sodium (Protonix -) 40 mg PO DAILY [facility] Last Admin: 04/21/19 10:02 Dose: 40 mg Rosuvastatin Calcium (Crestor -) 10 mg PO HS [facility] Last Admin: 04/21/19 21:50 Dose: 10 mg Tiotropium [place] (Spiriva Respimat) 2 puff IH DAILY [facility] Last Admin: 04/21/19 10:00 Dose: 2 puff - Objective Vital Signs: Vital Signs Temperature 98.2 F 04/21/19 19:10 Pulse Rate 109 H 04/21/19 19:10 Respiratory Rate 20 04/21/19 19:10 Blood Pressure 106/62 04/21/19 19:10 O2 Sat by Pulse Oximetry (%) 95 04/21/19 09:00 Labs: CBC, BMP 04/21/19 06:30 04/21/19 06:30 Problem List - Problems (1) COPD exacerbation Code(s): J44.1 - CHRONIC OBSTRUCTIVE PULMONARY DISEASE W (ACUTE) EXACERBATION (2) HTN (hypertension) Code(s): I10 - ESSENTIAL (PRIMARY) HYPERTENSION Qualifiers: Hypertension type: essential hypertension Qualified Code(s): I10 - Essential (primary) hypertension (3) Hypothyroidism Code(s): E03.9 - HYPOTHYROIDISM, UNSPECIFIED (4) Diabetes Code(s): E11.9 - TYPE 2 DIABETES MELLITUS WITHOUT COMPLICATIONS (5) H/O: lung cancer Code(s): Z85.118 - PERSONAL HISTORY OF MALIGNANT NEOPLASM OF BRONCHUS AND LUNG (6) HLD (hyperlipidemia) Code(s): E78.5 - HYPERLIPIDEMIA, UNSPECIFIED Qualifiers: Hyperlipidemia type: pure hypercholesterolemia Qualified Code(s): E78.00 - Pure hypercholesterolemia, unspecified; E78.0 - Pure hypercholesterolemia (7) CAD (coronary artery disease) Code(s): I25.10 - ATHSCL HEART DISEASE OF [place] CORONARY ARTERY W/O ANG PCTRS
[2019-04-22] MEDS: methylPREDNISolone NA SUCC 40 MG/1 ML VIAL IVPUSH SCH ×3 (03:51→18:32)
[2019-04-22] MEDS: INSULIN SLIDING SCALE (NOVOLOG) 1 VIAL SQ SCH ×4 (06:27→21:46)
[2019-04-22] MEDS: LEVOTHYROXINE NA 50 MCG TABLET (FP) PO SCH (06:27)
[2019-04-22] MEDS: ALBUTEROL SO4 0.083% IH SOL 2.5 MG/3 ML VIAL.NEB. NEB PRN (07:42)
[2019-04-22] MEDS ORDERED: PT OWN MED DRAWER 7, Y5N ONE (09:38)
[2019-04-22] MEDS: FUROSEMIDE 40 MG/4 ML INJECTABLE VIAL IVPUSH SCH (09:43)
[2019-04-22] MEDS: AZITHROMYCIN 250 MG TABLET PO SCH (09:44)
[2019-04-22] MEDS: LOSARTAN POTASSIUM 50 MG TABLET (FP) PO SCH (09:44)
[2019-04-22] MEDS: guaiFENesin 600 MG TABLET.ER (FP) PO SCH ×2 (09:44→21:46)
[2019-04-22] MEDS: ASPIRIN 81 MG CHEWABLE TABLETS PO SCH (09:44)
[2019-04-22] MEDS: PANTOPRAZOLE 40 MG TABLET (FP) PO SCH (09:44)
[2019-04-22] MEDS: TIOTROPIUM BROMIDE 2.5 MCG (SPIRIVA) RESPIMAT INHALER IH SCH (09:45)
[2019-04-22] MEDS: BUDESONIDE/FORMETEROL FUMARATE 160/4.5 mcg INHALER IH SCH ×2 (09:46→21:49)
--- NOTE | 2019-04-22 10:47 | PN ---
Progress Note (short form) - Note Progress Note: PULMONARY Breathing better but still with cough productive of yellow sputum, worse at night. No fevers or chills. Gen: NAD at rest Heart: RRR Lung: less scattered rhonchi, wheezes Abd: soft, nontender Ext: no edema CBC, BMP 04/21/19 06:30 04/21/19 06:30 Active Medications Albuterol Sulfate (Ventolin 0.083% Nebulizer Soln -) 1 amp NEB Q6H PRN PRN Reason: SHORT OF BREATH/WHEEZING Last Admin: 04/22/19 07:42 Dose: 1 amp Aspirin (Asa -) 81 mg PO DAILY [facility] Last Admin: 04/22/19 09:44 Dose: 81 mg Azithromycin (Zithromax -) 250 mg PO DAILY [facility] Last Admin: 04/22/19 09:44 Dose: 250 mg Budesonide/Formoterol Fumarate (Symbicort 160/4.5mcg -) 2 puff IH BID [facility] Last Admin: 04/22/19 09:46 Dose: 2 puff Furosemide (Lasix Injection -) 20 mg IVPUSH DAILY [facility] Last Admin: 04/22/19 09:43 Dose: 20 mg Guaifenesin (Mucinex -) 600 mg PO BID [facility] Last Admin: 04/22/19 09:44 Dose: 600 mg Insulin Aspart (Novolog Vial Sliding Scale -) 1 vial SQ [facility]; Protocol Last Admin: 04/22/19 06:27 Dose: 2 units Levothyroxine Sodium (Synthroid -) 50 mcg PO DAILY@0700 [facility] Last Admin: 04/22/19 06:27 Dose: 50 mcg Losartan Potassium (Cozaar -) 50 mg PO DAILY [facility] Last Admin: 04/22/19 09:44 Dose: 50 mg Methylprednisolone Sodium Succinate (Solu-Medrol -) 40 mg IVPUSH Q6H [facility] Last Admin: 04/22/19 09:44 Dose: 40 mg Pantoprazole Sodium (Protonix -) 40 mg PO DAILY [facility] Last Admin: 04/22/19 09:44 Dose: 40 mg Rosuvastatin Calcium (Crestor -) 10 mg PO HS [facility] Last Admin: 04/21/19 21:50 Dose: 10 mg Tiotropium [place] (Spiriva Respimat) 2 puff IH DAILY [facility] Last Admin: 06/03/19 09:45 Dose: 2 puff A/P Acute COPD Exacerbation h/o Lung Ca s/p lobectomy HTN Hypercholesterolemia Hypothyroidism - will decrease medrol to q8h - inhaled bronchodilators standing and PRN, will add mucomyst - O2 as needed - DVT prophylaxis
[2019-04-22] MEDS ORDERED: INSULIN (NOVOLOG) ASPART 100 UNITS/ML 10ML VIAL ONE ×2 (10:52→16:58)
[2019-04-22] MEDS: ACETYLCYSTEINE 20% 200MG/ML 4 ML VIAL *FOR ORAL / INH USE ONLY NEB SCH ×3 (11:19→20:50)
[2019-04-22] MEDS: ALBUTEROL SO4 0.083% IH SOL 2.5 MG/3 ML VIAL.NEB. NEB SCH ×3 (11:20→20:50)
--- NOTE | 2019-04-22 13:17 | PN ---
Progress Note, Physician Chief Complaint: 83yo female (reggie Van Dynekristen) with hx of lung ca s/p resection in remission, COPD , now admitted with sob and cough. Recent travel to [place]. Pt dx with a DVT to R calf on monday - not on anticoag. States R leg pain is worse, now with increasing sob. Using her inhalers at home - spiriva, breo, albuterol nebs/ inhaler. States cough started monday - her daughter started her on azithromycin for the cough on monday. Worsening sob this AM. No cp. Woke up at 4am unable to breath. No LE edema. No abd pain. No f/c. No rhinorrhea or sore throat. No n/v/ d. No other complaints. - Current Medication List Current Medications: Active Medications Acetylcysteine (Mucomyst 20 Oral / Inh Use Only*) 200 mg NEB RQID [facility] Last Admin: 04/22/19 11:19 Dose: 200 mg Albuterol Sulfate (Ventolin 0.083% Nebulizer Soln -) 1 amp NEB Q6H PRN PRN Reason: SHORT OF BREATH/WHEEZING Last Admin: 04/22/19 07:42 Dose: 1 amp Albuterol Sulfate (Ventolin 0.083% Nebulizer Soln -) 1 amp NEB RQID [facility] Last Admin: 04/22/19 11:20 Dose: 1 amp Aspirin (Asa -) 81 mg PO DAILY [facility] Last Admin: 04/22/19 09:44 Dose: 81 mg Azithromycin (Zithromax -) 250 mg PO DAILY [facility] Last Admin: 04/22/19 09:44 Dose: 250 mg Budesonide/Formoterol Fumarate (Symbicort 160/4.5mcg -) 2 puff IH BID [facility] Last Admin: 04/22/19 09:46 Dose: 2 puff Furosemide (Lasix Injection -) 20 mg IVPUSH DAILY [facility] Last Admin: 04/22/19 09:43 Dose: 20 mg Guaifenesin (Mucinex -) 600 mg PO BID [facility] Last Admin: 04/22/19 09:44 Dose: 600 mg Insulin Aspart (Novolog Vial Sliding Scale -) 1 vial SQ ACHS [facility]; Protocol Last Admin: 04/22/19 11:24 Dose: 2 units Levothyroxine Sodium (Synthroid -) 50 mcg PO DAILY@0700 [facility] Last Admin: 04/22/19 06:27 Dose: 50 mcg Losartan Potassium (Cozaar -) 50 mg PO DAILY [facility] Last Admin: 04/22/19 09:44 Dose: 50 mg Methylprednisolone Sodium Succinate (Solu-Medrol -) 40 mg IVPUSH Q8H-IV [facility] Pantoprazole Sodium (Protonix -) 40 mg PO DAILY [facility] Last Admin: 04/22/19 09:44 Dose: 40 mg Rosuvastatin Calcium (Crestor -) 10 mg PO HS [facility] Last Admin: 04/21/19 21:50 Dose: 10 mg Tiotropium [place] (Spiriva Respimat) 2 puff IH DAILY [facility] Last Admin: 04/22/19 09:45 Dose: 2 puff - Objective Vital Signs: Vital Signs Temperature 98.5 F 04/22/19 04:59 Pulse Rate 90 04/22/19 04:59 Respiratory Rate 20 04/22/19 04:59 Blood Pressure 108/58 L 04/22/19 04:59 O2 Sat by Pulse Oximetry (%) 96 04/21/19 21:00 Eyes: Yes: WNL, Conjunctiva Clear, EOM Intact HENT: Yes: WNL, Atraumatic, Normocephalic Neck: Yes: WNL, Supple, Trachea Midline Cardiovascular: Yes: WNL, Regular Rate and Rhythm Respiratory: Yes: WNL, Regular, CTA Bilaterally Gastrointestinal: Yes: WNL, Normal Bowel Sounds Genitourinary: Yes: WNL Musculoskeletal: Yes: WNL Extremities: Yes: WNL Edema: No Integumentary: Yes: WNL Neurological: Yes: WNL, Alert, Oriented ...Motor Strength: WNL Psychiatric: Yes: WNL Labs: CBC, BMP 04/21/19 06:30 04/21/19 06:30 Assessment/Plan - Problems (1) Cough Code(s): R05 - COUGH (2) Lung nodule < 6cm on CT Code(s): R91.1 - SOLITARY PULMONARY NODULE (3) SOB (shortness of breath) Code(s): R06.02 - SHORTNESS OF BREATH (4) CAD (coronary artery disease) Code(s): I25.10 - ATHSCL HEART DISEASE OF [place] CORONARY ARTERY W/O ANG PCTRS (5) COPD exacerbation Code(s): J44.1 - CHRONIC OBSTRUCTIVE PULMONARY DISEASE W (ACUTE) EXACERBATION (6) Diastolic CHF Code(s): I50.30 - UNSPECIFIED DIASTOLIC (CONGESTIVE) HEART FAILURE (7) HLD (hyperlipidemia) Code(s): E78.5 - HYPERLIPIDEMIA, UNSPECIFIED Qualifiers: Hyperlipidemia type: pure hypercholesterolemia Qualified Code(s): E78.00 - Pure hypercholesterolemia, unspecified; E78.0 - Pure hypercholesterolemia (8) HTN (hypertension) Code(s): I10 - ESSENTIAL (PRIMARY) HYPERTENSION Qualifiers: Hypertension type: essential hypertension Qualified Code(s): I10 - Essential (primary) hypertension
[2019-04-22] MEDS: ROSUVASTATIN CA 10 MG TABLET (FP) PO SCH (21:46)
--- NOTE | 2019-04-22 23:42 | PN ---
Progress Note, Physician - Current Medication List Current Medications: Active Medications Acetylcysteine (Mucomyst 20 Oral / Inh Use Only*) 200 mg NEB RQID [facility] Last Admin: 04/22/19 20:50 Dose: 200 mg Albuterol Sulfate (Ventolin 0.083% Nebulizer Soln -) 1 amp NEB Q6H PRN PRN Reason: SHORT OF BREATH/WHEEZING Last Admin: 04/22/19 07:42 Dose: 1 amp Albuterol Sulfate (Ventolin 0.083% Nebulizer Soln -) 1 amp NEB RQID [facility] Last Admin: 04/22/19 20:50 Dose: 1 amp Aspirin (Asa -) 81 mg PO DAILY [facility] Last Admin: 04/22/19 09:44 Dose: 81 mg Azithromycin (Zithromax -) 250 mg PO DAILY [facility] Last Admin: 04/22/19 09:44 Dose: 250 mg Budesonide/Formoterol Fumarate (Symbicort 160/4.5mcg -) 2 puff IH BID [facility] Last Admin: 04/22/19 21:49 Dose: 2 puff Furosemide (Lasix Injection -) 20 mg IVPUSH DAILY [facility] Last Admin: 04/22/19 09:43 Dose: 20 mg Guaifenesin (Mucinex -) 600 mg PO BID [facility] Last Admin: 04/22/19 21:46 Dose: 600 mg Insulin Aspart (Novolog Vial Sliding Scale -) 1 vial SQ ACHS [facility]; Protocol Last Admin: 04/22/19 21:46 Dose: 4 units Levothyroxine Sodium (Synthroid -) 50 mcg PO DAILY@0700 [facility] Last Admin: 04/22/19 06:27 Dose: 50 mcg Losartan Potassium (Cozaar -) 50 mg PO DAILY [facility] Last Admin: 04/22/19 09:44 Dose: 50 mg Methylprednisolone Sodium Succinate (Solu-Medrol -) 40 mg IVPUSH Q8H-IV [facility] Last Admin: 04/22/19 18:32 Dose: 40 mg Pantoprazole Sodium (Protonix -) 40 mg PO DAILY [facility] Last Admin: 04/22/19 09:44 Dose: 40 mg Rosuvastatin Calcium (Crestor -) 10 mg PO HS [facility] Last Admin: 04/22/19 21:46 Dose: 10 mg Tiotropium [place] (Spiriva Respimat) 2 puff IH DAILY [facility] Last Admin: 04/22/19 09:45 Dose: 2 puff - Objective Vital Signs: Vital Signs Temperature 98.4 F 04/22/19 22:39 Pulse Rate 80 04/22/19 22:39 Respiratory Rate 20 04/22/19 22:39 Blood Pressure 110/70 04/22/19 22:39 O2 Sat by Pulse Oximetry (%) 99 04/22/19 09:00 Labs: CBC, BMP 04/21/19 06:30 04/21/19 06:30 Problem List - Problems (1) COPD exacerbation Code(s): J44.1 - CHRONIC OBSTRUCTIVE PULMONARY DISEASE W (ACUTE) EXACERBATION (2) HTN (hypertension) Code(s): I10 - ESSENTIAL (PRIMARY) HYPERTENSION Qualifiers: Hypertension type: essential hypertension Qualified Code(s): I10 - Essential (primary) hypertension (3) Hypothyroidism Code(s): E03.9 - HYPOTHYROIDISM, UNSPECIFIED (4) Diabetes Code(s): E11.9 - TYPE 2 DIABETES MELLITUS WITHOUT COMPLICATIONS (5) H/O: lung cancer Code(s): Z85.118 - PERSONAL HISTORY OF MALIGNANT NEOPLASM OF BRONCHUS AND LUNG (6) HLD (hyperlipidemia) Code(s): E78.5 - HYPERLIPIDEMIA, UNSPECIFIED Qualifiers: Hyperlipidemia type: pure hypercholesterolemia Qualified Code(s): E78.00 - Pure hypercholesterolemia, unspecified; E78.0 - Pure hypercholesterolemia (7) CAD (coronary artery disease) Code(s): I25.10 - ATHSCL HEART DISEASE OF [place] CORONARY ARTERY W/O ANG PCTRS
[2019-04-23] MEDS: methylPREDNISolone NA SUCC 40 MG/1 ML VIAL IVPUSH SCH ×3 (02:00→17:05)
[2019-04-23] MEDS: ALBUTEROL SO4 0.083% IH SOL 2.5 MG/3 ML VIAL.NEB. NEB PRN (04:17)
[2019-04-23] MEDS: INSULIN SLIDING SCALE (NOVOLOG) 1 VIAL SQ SCH ×4 (06:15→21:32)
[2019-04-23] MEDS: LEVOTHYROXINE NA 50 MCG TABLET (FP) PO SCH (06:15)
[2019-04-23] MEDS: ALBUTEROL SO4 0.083% IH SOL 2.5 MG/3 ML VIAL.NEB. NEB SCH ×4 (08:02→20:35)
[2019-04-23] MEDS: ACETYLCYSTEINE 20% 200MG/ML 4 ML VIAL *FOR ORAL / INH USE ONLY NEB SCH ×4 (08:02→20:35)
[2019-04-23] MEDS: BUDESONIDE/FORMETEROL FUMARATE 160/4.5 mcg INHALER IH SCH ×2 (09:47→21:33)
[2019-04-23] MEDS: ASPIRIN 81 MG CHEWABLE TABLETS PO SCH (09:47)
[2019-04-23] MEDS: guaiFENesin 600 MG TABLET.ER (FP) PO SCH ×2 (09:47→21:32)
[2019-04-23] MEDS: AZITHROMYCIN 250 MG TABLET PO SCH (09:47)
[2019-04-23] MEDS: PANTOPRAZOLE 40 MG TABLET (FP) PO SCH (09:47)
[2019-04-23] MEDS: TIOTROPIUM BROMIDE 2.5 MCG (SPIRIVA) RESPIMAT INHALER IH SCH (09:47)
[2019-04-23] MEDS: FUROSEMIDE 40 MG/4 ML INJECTABLE VIAL IVPUSH SCH (09:51)
[2019-04-23] MEDS: LOSARTAN POTASSIUM 50 MG TABLET (FP) PO SCH (09:51)
--- NOTE | 2019-04-23 10:41 | PN ---
Progress Note (short form) - Note Progress Note: PULMONARY States breathing better today but still symptomatic at night. Chest feels looser. Vital Signs Period Temp Pulse Resp BP Sys/Hart Pulse Ox Last 24 Hr 97.8 F-99.0 F 80-103 20-22 92-115/57-70 98 Gen: NAD at rest Heart: RRR Lung: less scattered rhonchi, wheezes, better air entry Abd: soft, nontender Ext: no edema CBC, BMP 04/21/19 06:30 04/21/19 06:30 Active Medications Acetylcysteine (Mucomyst 20 Oral / Inh Use Only*) 200 mg NEB RQID [facility] Last Admin: 04/23/19 08:02 Dose: 200 mg Albuterol Sulfate (Ventolin 0.083% Nebulizer Soln -) 1 amp NEB Q6H PRN PRN Reason: SHORT OF BREATH/WHEEZING Last Admin: 04/23/19 04:17 Dose: 1 amp Albuterol Sulfate (Ventolin 0.083% Nebulizer Soln -) 1 amp NEB RQID [facility] Last Admin: 04/23/19 08:02 Dose: 1 amp Aspirin (Asa -) 81 mg PO DAILY [facility] Last Admin: 04/23/19 09:47 Dose: 81 mg Azithromycin (Zithromax -) 250 mg PO DAILY [facility] Last Admin: 04/23/19 09:47 Dose: 250 mg Budesonide/Formoterol Fumarate (Symbicort 160/4.5mcg -) 2 puff IH BID [facility] Last Admin: 04/23/19 09:47 Dose: 2 puff Furosemide (Lasix Injection -) 20 mg IVPUSH DAILY [facility] Last Admin: 04/23/19 09:51 Dose: Not Given Guaifenesin (Mucinex -) 600 mg PO BID [facility] Last Admin: 04/23/19 09:47 Dose: 600 mg Insulin Aspart (Novolog Vial Sliding Scale -) 1 vial SQ ACHS [facility]; Protocol Last Admin: 04/23/19 06:15 Dose: 2 units Levothyroxine Sodium (Synthroid -) 50 mcg PO DAILY@0700 [facility] Last Admin: 04/23/19 06:15 Dose: 50 mcg Losartan Potassium (Cozaar -) 50 mg PO DAILY [facility] Last Admin: 04/23/19 09:51 Dose: Not Given Methylprednisolone Sodium Succinate (Solu-Medrol -) 40 mg IVPUSH Q8H-IV [facility] Last Admin: 04/23/19 09:47 Dose: 40 mg Pantoprazole Sodium (Protonix -) 40 mg PO DAILY [facility] Last Admin: 04/23/19 09:47 Dose: 40 mg Rosuvastatin Calcium (Crestor -) 10 mg PO HS [facility] Last Admin: 04/22/19 21:46 Dose: 10 mg Tiotropium [place] (Spiriva Respimat) 2 puff IH DAILY [facility] Last Admin: 04/23/19 09:47 Dose: 2 puff A/P Acute COPD Exacerbation h/o Lung Ca s/p lobectomy HTN Hypercholesterolemia Hypothyroidism - continue medrol q8h - continue inhaled bronchodilators, mucomyst - O2 as needed - DVT prophylaxis
[2019-04-23] MEDS ORDERED: INSULIN (NOVOLOG) ASPART 100 UNITS/ML 10ML VIAL ONE (20:53)
[2019-04-23] MEDS: ROSUVASTATIN CA 10 MG TABLET (FP) PO SCH (21:32)
--- NOTE | 2019-04-23 22:30 | PN ---
Progress Note, Physician History of Present Illness: No new changes - Current Medication List Current Medications: Active Medications Acetylcysteine (Mucomyst 20 Oral / Inh Use Only*) 200 mg NEB RQID [facility] Last Admin: 04/23/19 20:35 Dose: 200 mg Albuterol Sulfate (Ventolin 0.083% Nebulizer Soln -) 1 amp NEB Q6H PRN PRN Reason: SHORT OF BREATH/WHEEZING Last Admin: 04/23/19 04:17 Dose: 1 amp Albuterol Sulfate (Ventolin 0.083% Nebulizer Soln -) 1 amp NEB RQID [facility] Last Admin: 04/23/19 20:35 Dose: 1 amp Aspirin (Asa -) 81 mg PO DAILY [facility] Last Admin: 04/23/19 09:47 Dose: 81 mg Azithromycin (Zithromax -) 250 mg PO DAILY [facility] Last Admin: 04/23/19 09:47 Dose: 250 mg Budesonide/Formoterol Fumarate (Symbicort 160/4.5mcg -) 2 puff IH BID [facility] Last Admin: 04/23/19 21:33 Dose: 2 puff Furosemide (Lasix Injection -) 20 mg IVPUSH DAILY [facility] Last Admin: 04/23/19 09:51 Dose: Not Given Guaifenesin (Mucinex -) 600 mg PO BID [facility] Last Admin: 04/23/19 21:32 Dose: 600 mg Insulin Aspart (Novolog Vial Sliding Scale -) 1 vial SQ [facility]; Protocol Last Admin: 04/23/19 21:32 Dose: 4 units Levothyroxine Sodium (Synthroid -) 50 mcg PO DAILY@0700 [facility] Last Admin: 04/23/19 06:15 Dose: 50 mcg Losartan Potassium (Cozaar -) 50 mg PO DAILY [facility] Last Admin: 04/23/19 09:51 Dose: Not Given Methylprednisolone Sodium Succinate (Solu-Medrol -) 40 mg IVPUSH Q8H-IV [facility] Last Admin: 04/23/19 17:05 Dose: 40 mg Pantoprazole Sodium (Protonix -) 40 mg PO DAILY [facility] Last Admin: 04/23/19 09:47 Dose: 40 mg Rosuvastatin Calcium (Crestor -) 10 mg PO HS [facility] Last Admin: 04/23/19 21:32 Dose: 10 mg Tiotropium [place] (Spiriva Respimat) 2 puff IH DAILY [facility] Last Admin: 04/23/19 09:47 Dose: 2 puff - Objective Vital Signs: Vital Signs Temperature 99.0 F 04/23/19 09:00 Pulse Rate 102 H 04/23/19 09:00 Respiratory Rate 22 H 04/23/19 09:00 Blood Pressure 92/57 L 04/23/19 09:00 O2 Sat by Pulse Oximetry (%) 97 04/23/19 09:00 Cardiovascular: Yes: WNL, Regular Rate and Rhythm Respiratory: Yes: Wheezes Gastrointestinal: Yes: WNL, Normal Bowel Sounds, Soft Edema: No Labs: CBC, BMP 04/21/19 06:30 04/21/19 06:30 Problem List - Problems (1) COPD exacerbation Assessment/Plan: Cont IV solumedrol Cont nebulizers/symbicort/spiriva Code(s): J44.1 - CHRONIC OBSTRUCTIVE PULMONARY DISEASE W (ACUTE) EXACERBATION (2) HTN (hypertension) Assessment/Plan: Bp stable Cont asa/losartan Code(s): I10 - ESSENTIAL (PRIMARY) HYPERTENSION Qualifiers: Hypertension type: essential hypertension Qualified Code(s): I10 - Essential (primary) hypertension (3) Hypothyroidism Assessment/Plan: Cont levothyroxine Code(s): E03.9 - HYPOTHYROIDISM, UNSPECIFIED (4) Diabetes Code(s): E11.9 - TYPE 2 DIABETES MELLITUS WITHOUT COMPLICATIONS (5) H/O: lung cancer Assessment/Plan: S/P lobectomy Code(s): Z85.118 - PERSONAL HISTORY OF MALIGNANT NEOPLASM OF BRONCHUS AND LUNG (6) HLD (hyperlipidemia) Assessment/Plan: Cont crestor Code(s): E78.5 - HYPERLIPIDEMIA, UNSPECIFIED Qualifiers: Hyperlipidemia type: pure hypercholesterolemia Qualified Code(s): E78.00 - Pure hypercholesterolemia, unspecified; E78.0 - Pure hypercholesterolemia (7) CAD (coronary artery disease) Code(s): I25.10 - ATHSCL HEART DISEASE OF [place] CORONARY ARTERY W/O ANG PCTRS
[2019-04-24] MEDS: methylPREDNISolone NA SUCC 40 MG/1 ML VIAL IVPUSH SCH ×3 (01:39→17:27)
[2019-04-24] MEDS: ALBUTEROL SO4 0.083% IH SOL 2.5 MG/3 ML VIAL.NEB. NEB PRN (03:48)
[2019-04-24] MEDS: INSULIN SLIDING SCALE (NOVOLOG) 1 VIAL SQ SCH ×4 (06:03→21:43)
[2019-04-24] MEDS: LEVOTHYROXINE NA 50 MCG TABLET (FP) PO SCH (06:04)
[2019-04-24] MEDS: ACETYLCYSTEINE 20% 200MG/ML 4 ML VIAL *FOR ORAL / INH USE ONLY NEB SCH ×4 (07:41→20:17)
[2019-04-24] MEDS: ALBUTEROL SO4 0.083% IH SOL 2.5 MG/3 ML VIAL.NEB. NEB SCH ×4 (07:42→20:17)
--- NOTE | 2019-04-24 09:34 | PN ---
Progress Note, Physician Chief Complaint: Pt A&OX3;sittin in chair; breathing "OK" during the day, but cannto sleep (has to stay in chair) during the night because of dyspnea. History of Present Illness: 83yo female (ken. Silvana) with hx of lung ca s/p resection in remission, COPD , now admitted with sob and cough. Recent travel to [place]. Pt dx with a DVT to R calf on monday - not on anticoag. States R leg pain is worse, now with increasing sob. Using her inhalers at home - spiriva, breo, albuterol nebs/ inhaler. States cough started monday - her daughter started her on azithromycin for the cough on monday. Worsening sob this AM. No cp. Woke up at 4am unable to breath. No LE edema. No abd pain. No f/c. No rhinorrhea or sore throat. No n/v/ d. No other complaints. - Current Medication List Current Medications: Active Medications Acetylcysteine (Mucomyst 20 Oral / Inh Use Only*) 200 mg NEB RQID [facility] Last Admin: 04/24/19 07:41 Dose: 200 mg Albuterol Sulfate (Ventolin 0.083% Nebulizer Soln -) 1 amp NEB Q6H PRN PRN Reason: SHORT OF BREATH/WHEEZING Last Admin: 04/24/19 03:48 Dose: 1 amp Albuterol Sulfate (Ventolin 0.083% Nebulizer Soln -) 1 amp NEB RQID [facility] Last Admin: 04/24/19 07:42 Dose: 1 amp Aspirin (Asa -) 81 mg PO DAILY [facility] Last Admin: 04/23/19 09:47 Dose: 81 mg Azithromycin (Zithromax -) 250 mg PO DAILY [facility] Last Admin: 04/23/19 09:47 Dose: 250 mg Budesonide/Formoterol Fumarate (Symbicort 160/4.5mcg -) 2 puff IH BID [facility] Last Admin: 04/23/19 21:33 Dose: 2 puff Furosemide (Lasix Injection -) 20 mg IVPUSH DAILY [facility] Last Admin: 04/23/19 09:51 Dose: Not Given Guaifenesin (Mucinex -) 600 mg PO BID [facility] Last Admin: 04/23/19 21:32 Dose: 600 mg Insulin Aspart (Novolog Vial Sliding Scale -) 1 vial SQ [facility]; Protocol Last Admin: 04/24/19 06:03 Dose: 2 units Levothyroxine Sodium (Synthroid -) 50 mcg PO DAILY@0700 [facility] Last Admin: 04/24/19 06:04 Dose: 50 mcg Losartan Potassium (Cozaar -) 50 mg PO DAILY [facility] Last Admin: 04/23/19 09:51 Dose: Not Given Methylprednisolone Sodium Succinate (Solu-Medrol -) 40 mg IVPUSH Q8H-IV [facility] Last Admin: 04/24/19 01:39 Dose: 40 mg Pantoprazole Sodium (Protonix -) 40 mg PO DAILY [facility] Last Admin: 04/23/19 09:47 Dose: 40 mg Rosuvastatin Calcium (Crestor -) 10 mg PO HS [facility] Last Admin: 04/23/19 21:32 Dose: 10 mg Tiotropium [place] (Spiriva Respimat) 2 puff IH DAILY [facility] Last Admin: 04/23/19 09:47 Dose: 2 puff - Objective Vital Signs: Vital Signs Temperature 98.5 F 04/24/19 06:32 Pulse Rate 98 H 04/24/19 06:32 Respiratory Rate 21 H 04/24/19 06:32 Blood Pressure 116/73 04/24/19 06:32 O2 Sat by Pulse Oximetry (%) 100 04/23/19 21:00 Constitutional: Yes: Calm Labs: CBC, BMP 04/21/19 06:30 04/21/19 06:30 Problem List - Problems (1) Cough Code(s): R05 - COUGH (2) Lung nodule < 6cm on CT Code(s): R91.1 - SOLITARY PULMONARY NODULE (3) SOB (shortness of breath) Assessment/Plan: On bronchodilators, steroids per pumonologist, oncologist. Code(s): R06.02 - SHORTNESS OF BREATH (4) CAD (coronary artery disease) Code(s): I25.10 - ATHSCL HEART DISEASE OF [place] CORONARY ARTERY W/O ANG PCTRS (5) COPD exacerbation Code(s): J44.1 - CHRONIC OBSTRUCTIVE PULMONARY DISEASE W (ACUTE) EXACERBATION (6) Diastolic CHF Code(s): I50.30 - UNSPECIFIED DIASTOLIC (CONGESTIVE) HEART FAILURE (7) HLD (hyperlipidemia) Assessment/Plan: on rosuvastatin. Code(s): E78.5 - HYPERLIPIDEMIA, UNSPECIFIED Qualifiers: Hyperlipidemia type: pure hypercholesterolemia Qualified Code(s): E78.00 - Pure hypercholesterolemia, unspecified; E78.0 - Pure hypercholesterolemia (8) HTN (hypertension) Assessment/Plan: on losartan and furosemide. ECHO: normal LVEF Code(s): I10 - ESSENTIAL (PRIMARY) HYPERTENSION Qualifiers: Hypertension type: essential hypertension Qualified Code(s): I10 - Essential (primary) hypertension (9) Lung cancer Assessment/Plan: f/u with oncologist. Code(s): C34.90 - MALIGNANT NEOPLASM OF UNSP PART OF UNSP BRONCHUS OR LUNG
[2019-04-24] MEDS: BUDESONIDE/FORMETEROL FUMARATE 160/4.5 mcg INHALER IH SCH ×2 (09:40→21:43)
[2019-04-24] MEDS: TIOTROPIUM BROMIDE 2.5 MCG (SPIRIVA) RESPIMAT INHALER IH SCH (09:40)
[2019-04-24] MEDS: PANTOPRAZOLE 40 MG TABLET (FP) PO SCH (09:42)
[2019-04-24] MEDS: guaiFENesin 600 MG TABLET.ER (FP) PO SCH ×2 (09:42→21:43)
[2019-04-24] MEDS: ASPIRIN 81 MG CHEWABLE TABLETS PO SCH (09:42)
[2019-04-24] MEDS: AZITHROMYCIN 250 MG TABLET PO SCH (09:42)
[2019-04-24] MEDS: FUROSEMIDE 40 MG/4 ML INJECTABLE VIAL IVPUSH SCH (09:43)
[2019-04-24] MEDS: LOSARTAN POTASSIUM 50 MG TABLET (FP) PO SCH (09:43)
--- NOTE | 2019-04-24 11:59 | PN ---
Progress Note, Physician Chief Complaint: 83yo female (reggie [place]) with hx of lung ca s/p resection in remission, COPD , now admitted with sob and cough. Recent travel to [place]. Pt dx with a DVT to R calf on monday - not on anticoag. States R leg pain is worse, now with increasing sob. Using her inhalers at home - spiriva, breo, albuterol nebs/ inhaler. States cough started monday - her daughter started her on azithromycin for the cough on monday. Worsening sob this AM. No cp. Woke up at 4am unable to breath. No LE edema. No abd pain. No f/c. No rhinorrhea or sore throat. No n/v/ d. No other complaints. - Current Medication List Current Medications: Active Medications Acetylcysteine (Mucomyst 20 Oral / Inh Use Only*) 200 mg NEB RQID [facility] Last Admin: 04/24/19 07:41 Dose: 200 mg Albuterol Sulfate (Ventolin 0.083% Nebulizer Soln -) 1 amp NEB Q6H PRN PRN Reason: SHORT OF BREATH/WHEEZING Last Admin: 04/24/19 03:48 Dose: 1 amp Albuterol Sulfate (Ventolin 0.083% Nebulizer Soln -) 1 amp NEB RQID [facility] Last Admin: 04/24/19 07:42 Dose: 1 amp Aspirin (Asa -) 81 mg PO DAILY [facility] Last Admin: 04/24/19 09:42 Dose: 81 mg Azithromycin (Zithromax -) 250 mg PO DAILY [facility] Last Admin: 04/24/19 09:42 Dose: 250 mg Budesonide/Formoterol Fumarate (Symbicort 160/4.5mcg -) 2 puff IH BID [facility] Last Admin: 04/24/19 09:40 Dose: 2 puff Furosemide (Lasix Injection -) 20 mg IVPUSH DAILY [facility] Last Admin: 04/24/19 09:43 Dose: 20 mg Guaifenesin (Mucinex -) 600 mg PO BID [facility] Last Admin: 04/24/19 09:42 Dose: 600 mg Insulin Aspart (Novolog Vial Sliding Scale -) 1 vial SQ ACHS [facility]; Protocol Last Admin: 04/24/19 11:44 Dose: Not Given Levothyroxine Sodium (Synthroid -) 50 mcg PO DAILY@0700 [facility] Last Admin: 04/24/19 06:04 Dose: 50 mcg Losartan Potassium (Cozaar -) 50 mg PO DAILY [facility] Last Admin: 04/24/19 09:43 Dose: 50 mg Methylprednisolone Sodium Succinate (Solu-Medrol -) 40 mg IVPUSH Q8H-IV [facility] Last Admin: 04/24/19 09:41 Dose: 40 mg Pantoprazole Sodium (Protonix -) 40 mg PO DAILY [facility] Last Admin: 04/24/19 09:42 Dose: 40 mg Rosuvastatin Calcium (Crestor -) 10 mg PO HS [facility] Last Admin: 04/23/19 21:32 Dose: 10 mg Tiotropium [place] (Spiriva Respimat) 2 puff IH DAILY [facility] Last Admin: 04/24/19 09:40 Dose: 2 puff - Objective Vital Signs: Vital Signs Temperature 97.7 F 04/24/19 09:00 Pulse Rate 100 H 04/24/19 09:00 Respiratory Rate 20 04/24/19 09:00 Blood Pressure 101/61 04/24/19 09:00 O2 Sat by Pulse Oximetry (%) 99 04/24/19 09:00 Eyes: Yes: WNL, Conjunctiva Clear, EOM Intact HENT: Yes: WNL, Atraumatic, Normocephalic Neck: Yes: WNL, Supple, Trachea Midline Cardiovascular: Yes: WNL, Regular Rate and Rhythm Respiratory: Yes: WNL, Regular, CTA Bilaterally Gastrointestinal: Yes: WNL, Normal Bowel Sounds Genitourinary: Yes: WNL Musculoskeletal: Yes: WNL Extremities: Yes: WNL Edema: No Integumentary: Yes: WNL Neurological: Yes: WNL, Alert, Oriented ...Motor Strength: WNL Psychiatric: Yes: WNL Labs: CBC, BMP 04/21/19 06:30 04/21/19 06:30 Assessment/Plan - Problems (1) Cough Code(s): R05 - COUGH (2) Lung nodule < 6cm on CT Code(s): R91.1 - SOLITARY PULMONARY NODULE (3) SOB (shortness of breath) Assessment/Plan: On bronchodilators, steroids per pumonologist, oncologist. Code(s): R06.02 - SHORTNESS OF BREATH (4) CAD (coronary artery disease) Code(s): I25.10 - ATHSCL HEART DISEASE OF [place] CORONARY ARTERY W/O ANG PCTRS (5) COPD exacerbation Code(s): J44.1 - CHRONIC OBSTRUCTIVE PULMONARY DISEASE W (ACUTE) EXACERBATION (6) Diastolic CHF Code(s): I50.30 - UNSPECIFIED DIASTOLIC (CONGESTIVE) HEART FAILURE (7) HLD (hyperlipidemia) Assessment/Plan: on rosuvastatin. Code(s): E78.5 - HYPERLIPIDEMIA, UNSPECIFIED Qualifiers: Hyperlipidemia type: pure hypercholesterolemia Qualified Code(s): E78.00 - Pure hypercholesterolemia, unspecified; E78.0 - Pure hypercholesterolemia (8) HTN (hypertension) Assessment/Plan: on losartan and furosemide. ECHO: normal LVEF Code(s): I10 - ESSENTIAL (PRIMARY) HYPERTENSION Qualifiers: Hypertension type: essential hypertension Qualified Code(s): I10 - Essential (primary) hypertension (9) Lung cancer Assessment/Plan: f/u with oncologist. Code(s): C34.90 - MALIGNANT NEOPLASM OF UNSP PART OF UNSP BRONCHUS OR LUNG
--- NOTE | 2019-04-24 13:25 | PN ---
Progress Note, Physician History of Present Illness: pulmonary alert,still congested worse at night - Current Medication List Current Medications: Active Medications Acetylcysteine (Mucomyst 20 Oral / Inh Use Only*) 200 mg NEB RQID [facility] Last Admin: 04/24/19 12:18 Dose: 200 mg Albuterol Sulfate (Ventolin 0.083% Nebulizer Soln -) 1 amp NEB Q6H PRN PRN Reason: SHORT OF BREATH/WHEEZING Last Admin: 04/24/19 03:48 Dose: 1 amp Albuterol Sulfate (Ventolin 0.083% Nebulizer Soln -) 1 amp NEB RQID [facility] Last Admin: 04/24/19 12:19 Dose: 1 amp Aspirin (Asa -) 81 mg PO DAILY [facility] Last Admin: 04/24/19 09:42 Dose: 81 mg Azithromycin (Zithromax -) 250 mg PO DAILY [facility] Last Admin: 04/24/19 09:42 Dose: 250 mg Budesonide/Formoterol Fumarate (Symbicort 160/4.5mcg -) 2 puff IH BID [facility] Last Admin: 04/24/19 09:40 Dose: 2 puff Furosemide (Lasix Injection -) 20 mg IVPUSH DAILY [facility] Last Admin: 04/24/19 09:43 Dose: 20 mg Guaifenesin (Mucinex -) 600 mg PO BID [facility] Last Admin: 04/24/19 09:42 Dose: 600 mg Insulin Aspart (Novolog Vial Sliding Scale -) 1 vial SQ ACHS [facility]; Protocol Last Admin: 04/24/19 11:44 Dose: Not Given Levothyroxine Sodium (Synthroid -) 50 mcg PO DAILY@0700 [facility] Last Admin: 04/24/19 06:04 Dose: 50 mcg Losartan Potassium (Cozaar -) 50 mg PO DAILY [facility] Last Admin: 04/24/19 09:43 Dose: 50 mg Methylprednisolone Sodium Succinate (Solu-Medrol -) 40 mg IVPUSH Q8H-IV [facility] Last Admin: 04/24/19 09:41 Dose: 40 mg Pantoprazole Sodium (Protonix -) 40 mg PO DAILY [facility] Last Admin: 04/24/19 09:42 Dose: 40 mg Rosuvastatin Calcium (Crestor -) 10 mg PO HS [facility] Last Admin: 04/23/19 21:32 Dose: 10 mg Tiotropium [place] (Spiriva Respimat) 2 puff IH DAILY [facility] Last Admin: 04/24/19 09:40 Dose: 2 puff - Objective Vital Signs: Vital Signs Temperature 97.7 F 04/24/19 09:00 Pulse Rate 100 H 04/24/19 09:00 Respiratory Rate 20 04/24/19 09:00 Blood Pressure 101/61 04/24/19 09:00 O2 Sat by Pulse Oximetry (%) 99 04/24/19 09:00 Constitutional: Yes: Well Nourished, Calm Eyes: Yes: WNL HENT: Yes: WNL Neck: Yes: WNL Cardiovascular: Yes: Regular Rate and Rhythm, S1, S2 Respiratory: Yes: Rhonchi (bilateral wheezes and rhonchi), Wheezes Gastrointestinal: Yes: Normal Bowel Sounds, Soft Extremities: Yes: WNL Edema: No Labs: Problem List - Problems (1) Cough Code(s): R05 - COUGH (2) Hypothyroidism Code(s): E03.9 - HYPOTHYROIDISM, UNSPECIFIED (3) SOB (shortness of breath) Code(s): R06.02 - SHORTNESS OF BREATH (4) CAD (coronary artery disease) Code(s): I25.10 - ATHSCL HEART DISEASE OF [place] CORONARY ARTERY W/O ANG PCTRS (5) COPD exacerbation Code(s): J44.1 - CHRONIC OBSTRUCTIVE PULMONARY DISEASE W (ACUTE) EXACERBATION (6) Diabetes Code(s): E11.9 - TYPE 2 DIABETES MELLITUS WITHOUT COMPLICATIONS (7) H/O: lung cancer Code(s): Z85.118 - PERSONAL HISTORY OF MALIGNANT NEOPLASM OF BRONCHUS AND LUNG (8) HLD (hyperlipidemia) Code(s): E78.5 - HYPERLIPIDEMIA, UNSPECIFIED Qualifiers: Hyperlipidemia type: pure hypercholesterolemia Qualified Code(s): E78.00 - Pure hypercholesterolemia, unspecified; E78.0 - Pure hypercholesterolemia Assessment/Plan A/P Acute COPD Exacerbation h/o Lung Ca s/p lobectomy HTN Hypercholesterolemia Hypothyroidism - medrol to q8 start taper in am - inhaled bronchodilators standing and PRN - O2 as needed - DVT prophylaxis - add zithromax 250 tiw - mucomyst DR GAMEZ
[2019-04-24] MEDS ORDERED: INSULIN (NOVOLOG) ASPART 100 UNITS/ML 10ML VIAL ONE (21:37)
[2019-04-24] MEDS: ROSUVASTATIN CA 10 MG TABLET (FP) PO SCH (21:43)
[2019-04-24] MEDS: guaiFENesin/CODEINE 10 ML UNIT-DOSE CUPS PO SCH (21:43)
--- NOTE | 2019-04-24 23:16 | PN ---
Progress Note, Physician - Current Medication List Current Medications: Active Medications Acetylcysteine (Mucomyst 20 Oral / Inh Use Only*) 200 mg NEB RQID [facility] Last Admin: 04/24/19 20:17 Dose: 200 mg Albuterol Sulfate (Ventolin 0.083% Nebulizer Soln -) 1 amp NEB Q6H PRN PRN Reason: SHORT OF BREATH/WHEEZING Last Admin: 04/24/19 03:48 Dose: 1 amp Albuterol Sulfate (Ventolin 0.083% Nebulizer Soln -) 1 amp NEB RQID [facility] Last Admin: 04/24/19 20:17 Dose: 1 amp Aspirin (Asa -) 81 mg PO DAILY [facility] Last Admin: 04/24/19 09:42 Dose: 81 mg Azithromycin (Zithromax -) 250 mg PO DAILY [facility] Last Admin: 04/24/19 09:42 Dose: 250 mg Budesonide/Formoterol Fumarate (Symbicort 160/4.5mcg -) 2 puff IH BID [facility] Last Admin: 04/24/19 21:43 Dose: 2 puff Furosemide (Lasix Injection -) 20 mg IVPUSH DAILY [facility] Last Admin: 04/24/19 09:43 Dose: 20 mg Guaifenesin (Mucinex -) 600 mg PO BID [facility] Last Admin: 04/24/19 21:43 Dose: 600 mg Guaifenesin/Codeine Phosphate (Robitussin Ac -) 10 ml PO [facility] Last Admin: 04/24/19 21:43 Dose: 10 ml Insulin Aspart (Novolog Vial Sliding Scale -) 1 vial SQ [facility]; Protocol Last Admin: 04/24/19 21:43 Dose: 2 units Levothyroxine Sodium (Synthroid -) 50 mcg PO DAILY@0700 [facility] Last Admin: 04/24/19 06:04 Dose: 50 mcg Losartan Potassium (Cozaar -) 50 mg PO DAILY [facility] Last Admin: 04/24/19 09:43 Dose: 50 mg Methylprednisolone Sodium Succinate (Solu-Medrol -) 40 mg IVPUSH Q8H-IV [facility] Last Admin: 04/24/19 17:27 Dose: 40 mg Pantoprazole Sodium (Protonix -) 40 mg PO DAILY [facility] Last Admin: 04/24/19 09:42 Dose: 40 mg Rosuvastatin Calcium (Crestor -) 10 mg PO HS [facility] Last Admin: 04/24/19 21:43 Dose: 10 mg Tiotropium [place] (Spiriva Respimat) 2 puff IH DAILY [facility] Last Admin: 04/24/19 09:40 Dose: 2 puff - Objective Vital Signs: Vital Signs Temperature 98.3 F 04/24/19 22:13 Pulse Rate 100 H 04/24/19 22:13 Respiratory Rate 20 04/24/19 22:13 Blood Pressure 103/56 L 04/24/19 22:13 O2 Sat by Pulse Oximetry (%) 99 04/24/19 21:00 Labs: CBC, BMP 04/21/19 06:30 04/21/19 06:30 Problem List - Problems (1) COPD exacerbation Code(s): J44.1 - CHRONIC OBSTRUCTIVE PULMONARY DISEASE W (ACUTE) EXACERBATION (2) HTN (hypertension) Code(s): I10 - ESSENTIAL (PRIMARY) HYPERTENSION Qualifiers: Hypertension type: essential hypertension Qualified Code(s): I10 - Essential (primary) hypertension (3) Hypothyroidism Code(s): E03.9 - HYPOTHYROIDISM, UNSPECIFIED (4) Diabetes Code(s): E11.9 - TYPE 2 DIABETES MELLITUS WITHOUT COMPLICATIONS (5) H/O: lung cancer Code(s): Z85.118 - PERSONAL HISTORY OF MALIGNANT NEOPLASM OF BRONCHUS AND LUNG (6) HLD (hyperlipidemia) Code(s): E78.5 - HYPERLIPIDEMIA, UNSPECIFIED Qualifiers: Hyperlipidemia type: pure hypercholesterolemia Qualified Code(s): E78.00 - Pure hypercholesterolemia, unspecified; E78.0 - Pure hypercholesterolemia (7) CAD (coronary artery disease) Code(s): I25.10 - ATHSCL HEART DISEASE OF [place] CORONARY ARTERY W/O ANG PCTRS
[2019-04-25] MEDS: ALBUTEROL SO4 0.083% IH SOL 2.5 MG/3 ML VIAL.NEB. NEB PRN (00:15)
[2019-04-25] MEDS: methylPREDNISolone NA SUCC 40 MG/1 ML VIAL IVPUSH SCH ×3 (01:37→17:56)
[2019-04-25] MEDS: INSULIN SLIDING SCALE (NOVOLOG) 1 VIAL SQ SCH ×4 (06:35→22:13)
[2019-04-25] MEDS: LEVOTHYROXINE NA 50 MCG TABLET (FP) PO SCH (06:36)
[2019-04-25] MEDS: ALBUTEROL SO4 0.083% IH SOL 2.5 MG/3 ML VIAL.NEB. NEB SCH ×4 (07:35→20:29)
[2019-04-25] MEDS: ACETYLCYSTEINE 20% 200MG/ML 4 ML VIAL *FOR ORAL / INH USE ONLY NEB SCH ×4 (07:35→20:10)
[2019-04-25] MEDS ORDERED: PT OWN MED DRAWER 7, Y5N ONE (10:20)
[2019-04-25] MEDS: AZITHROMYCIN 250 MG TABLET PO SCH (10:27)
[2019-04-25] MEDS: ASPIRIN 81 MG CHEWABLE TABLETS PO SCH (10:27)
[2019-04-25] MEDS: PANTOPRAZOLE 40 MG TABLET (FP) PO SCH (10:27)
[2019-04-25] MEDS: LOSARTAN POTASSIUM 50 MG TABLET (FP) PO SCH (10:27)
[2019-04-25] MEDS: guaiFENesin 600 MG TABLET.ER (FP) PO SCH ×2 (10:27→22:04)
[2019-04-25] MEDS: FUROSEMIDE 40 MG/4 ML INJECTABLE VIAL IVPUSH SCH (10:28)
[2019-04-25] MEDS: BUDESONIDE/FORMETEROL FUMARATE 160/4.5 mcg INHALER IH SCH ×2 (10:29→22:13)
[2019-04-25] MEDS: TIOTROPIUM BROMIDE 2.5 MCG (SPIRIVA) RESPIMAT INHALER IH SCH (10:29)
--- NOTE | 2019-04-25 10:58 | PN ---
Progress Note (short form) - Note Progress Note: PULMONARY States breathing better today but still persistent cough at night. Chest feels looser. Vital Signs Period Temp Pulse Resp BP Sys/Hart Pulse Ox Last 24 Hr 98.3 F-98.7 F 90-100 18-20 100-103/56-60 99 Gen: NAD at rest Heart: RRR Lung: less scattered rhonchi, wheezes, better air entry Abd: soft, nontender Ext: no edema CBC, BMP 04/21/19 06:30 04/21/19 06:30 Active Medications Acetylcysteine (Mucomyst 20 Oral / Inh Use Only*) 200 mg NEB RQID [facility] Last Admin: 04/24/19 20:17 Dose: 200 mg Albuterol Sulfate (Ventolin 0.083% Nebulizer Soln -) 1 amp NEB Q6H PRN PRN Reason: SHORT OF BREATH/WHEEZING Last Admin: 04/25/19 00:15 Dose: 1 amp Albuterol Sulfate (Ventolin 0.083% Nebulizer Soln -) 1 amp NEB RQID [facility] Last Admin: 04/24/19 20:17 Dose: 1 amp Aspirin (Asa -) 81 mg PO DAILY [facility] Last Admin: 04/25/19 10:27 Dose: 81 mg Azithromycin (Zithromax -) 250 mg PO DAILY [facility] Last Admin: 04/25/19 10:27 Dose: 250 mg Budesonide/Formoterol Fumarate (Symbicort 160/4.5mcg -) 2 puff IH BID [facility] Last Admin: 04/25/19 10:29 Dose: 2 puff Furosemide (Lasix Injection -) 20 mg IVPUSH DAILY [facility] Last Admin: 04/25/19 10:28 Dose: 20 mg Guaifenesin (Mucinex -) 600 mg PO BID [facility] Last Admin: 04/25/19 10:27 Dose: 600 mg Guaifenesin/Codeine Phosphate (Robitussin Ac -) 10 ml PO HS [facility] Last Admin: 04/24/19 21:43 Dose: 10 ml Insulin Aspart (Novolog Vial Sliding Scale -) 1 vial SQ [facility]; Protocol Last Admin: 04/25/19 06:35 Dose: 4 units Levothyroxine Sodium (Synthroid -) 50 mcg PO DAILY@0700 [facility] Last Admin: 04/25/19 06:36 Dose: 50 mcg Losartan Potassium (Cozaar -) 50 mg PO DAILY [facility] Last Admin: 04/25/19 10:27 Dose: 50 mg Methylprednisolone Sodium Succinate (Solu-Medrol -) 40 mg IVPUSH Q8H-IV [facility] Last Admin: 04/25/19 10:27 Dose: 40 mg Pantoprazole Sodium (Protonix -) 40 mg PO DAILY [facility] Last Admin: 04/25/19 10:27 Dose: 40 mg Rosuvastatin Calcium (Crestor -) 10 mg PO HS [facility] Last Admin: 04/24/19 21:43 Dose: 10 mg Tiotropium [place] (Spiriva Respimat) 2 puff IH DAILY [facility] Last Admin: 04/25/19 10:29 Dose: 2 puff A/P Acute COPD Exacerbation h/o Lung Ca s/p lobectomy HTN Hypercholesterolemia Hypothyroidism - continue medrol q8h - if continues to improve, can likely change steroids to PO prednisone 60mg daily in AM and taper as outpt - cough suppressants - continue inhaled bronchodilators, mucomyst - O2 as needed - DVT prophylaxis
[2019-04-25] MEDS ORDERED: INSULIN (NOVOLOG) ASPART 100 UNITS/ML 10ML VIAL ONE (17:06)
[2019-04-25] MEDS: ROSUVASTATIN CA 10 MG TABLET (FP) PO SCH (22:04)
[2019-04-25] MEDS: guaiFENesin/CODEINE 10 ML UNIT-DOSE CUPS PO SCH (22:13)
--- NOTE | 2019-04-25 23:48 | PN ---
Progress Note, Physician History of Present Illness: No new changes - Current Medication List Current Medications: Active Medications Acetylcysteine (Mucomyst 20 Oral / Inh Use Only*) 200 mg NEB RQID [facility] Last Admin: 04/25/19 20:10 Dose: 200 mg Albuterol Sulfate (Ventolin 0.083% Nebulizer Soln -) 1 amp NEB Q6H PRN PRN Reason: SHORT OF BREATH/WHEEZING Last Admin: 04/25/19 00:15 Dose: 1 amp Albuterol Sulfate (Ventolin 0.083% Nebulizer Soln -) 1 amp NEB RQID [facility] Last Admin: 04/25/19 20:29 Dose: 1 amp Aspirin (Asa -) 81 mg PO DAILY [facility] Last Admin: 04/25/19 10:27 Dose: 81 mg Azithromycin (Zithromax -) 250 mg PO DAILY [facility] Last Admin: 04/25/19 10:27 Dose: 250 mg Budesonide/Formoterol Fumarate (Symbicort 160/4.5mcg -) 2 puff IH BID [facility] Last Admin: 04/25/19 22:13 Dose: 2 puff Furosemide (Lasix Injection -) 20 mg IVPUSH DAILY [facility] Last Admin: 04/25/19 10:28 Dose: 20 mg Guaifenesin (Mucinex -) 600 mg PO BID [facility] Last Admin: 04/25/19 22:04 Dose: 600 mg Guaifenesin/Codeine Phosphate (Robitussin Ac -) 10 ml PO [facility] Last Admin: 04/25/19 22:13 Dose: 10 ml Insulin Aspart (Novolog Vial Sliding Scale -) 1 vial SQ [facility]; Protocol Last Admin: 04/25/19 22:13 Dose: 2 units Levothyroxine Sodium (Synthroid -) 50 mcg PO DAILY@0700 [facility] Last Admin: 04/25/19 06:36 Dose: 50 mcg Losartan Potassium (Cozaar -) 50 mg PO DAILY [facility] Last Admin: 04/25/19 10:27 Dose: 50 mg Methylprednisolone Sodium Succinate (Solu-Medrol -) 40 mg IVPUSH Q8H-IV [facility] Last Admin: 04/25/19 17:56 Dose: 40 mg Pantoprazole Sodium (Protonix -) 40 mg PO DAILY [facility] Last Admin: 04/25/19 10:27 Dose: 40 mg Rosuvastatin Calcium (Crestor -) 10 mg PO HS [facility] Last Admin: 04/25/19 22:04 Dose: 10 mg Tiotropium [place] (Spiriva Respimat) 2 puff IH DAILY [facility] Last Admin: 04/25/19 10:29 Dose: 2 puff - Objective Vital Signs: Vital Signs Temperature 98.6 F 04/25/19 22:05 Pulse Rate 70 04/25/19 22:05 Respiratory Rate 20 04/25/19 22:05 Blood Pressure 102/60 04/25/19 22:05 O2 Sat by Pulse Oximetry (%) 98 04/25/19 09:00 Cardiovascular: Yes: WNL, Regular Rate and Rhythm Respiratory: Yes: Diminished Gastrointestinal: Yes: WNL, Normal Bowel Sounds, Soft Labs: CBC, BMP 04/21/19 06:30 04/21/19 06:30 Problem List - Problems (1) COPD exacerbation Assessment/Plan: Cont IV solumedrol Cont nebulizers/symbicort/spiriva Code(s): J44.1 - CHRONIC OBSTRUCTIVE PULMONARY DISEASE W (ACUTE) EXACERBATION (2) HTN (hypertension) Assessment/Plan: Bp stable Cont asa/losartan Code(s): I10 - ESSENTIAL (PRIMARY) HYPERTENSION Qualifiers: Hypertension type: essential hypertension Qualified Code(s): I10 - Essential (primary) hypertension (3) Hypothyroidism Assessment/Plan: Cont levothyroxine Code(s): E03.9 - HYPOTHYROIDISM, UNSPECIFIED (4) Diabetes Code(s): E11.9 - TYPE 2 DIABETES MELLITUS WITHOUT COMPLICATIONS (5) H/O: lung cancer Assessment/Plan: S/P lobectomy Code(s): Z85.118 - PERSONAL HISTORY OF MALIGNANT NEOPLASM OF BRONCHUS AND LUNG (6) HLD (hyperlipidemia) Assessment/Plan: Cont crestor Code(s): E78.5 - HYPERLIPIDEMIA, UNSPECIFIED Qualifiers: Hyperlipidemia type: pure hypercholesterolemia Qualified Code(s): E78.00 - Pure hypercholesterolemia, unspecified; E78.0 - Pure hypercholesterolemia (7) CAD (coronary artery disease) Code(s): I25.10 - ATHSCL HEART DISEASE OF [place] CORONARY ARTERY W/O ANG PCTRS
[2019-04-26] MEDS: ALBUTEROL SO4 0.083% IH SOL 2.5 MG/3 ML VIAL.NEB. NEB PRN (01:05)
[2019-04-26] MEDS: methylPREDNISolone NA SUCC 40 MG/1 ML VIAL IVPUSH SCH ×3 (02:07→17:48)
[2019-04-26] MEDS: INSULIN SLIDING SCALE (NOVOLOG) 1 VIAL SQ SCH ×4 (06:31→21:57)
[2019-04-26] MEDS: LEVOTHYROXINE NA 50 MCG TABLET (FP) PO SCH (06:34)
[2019-04-26] MEDS: ALBUTEROL SO4 0.083% IH SOL 2.5 MG/3 ML VIAL.NEB. NEB SCH ×4 (07:20→21:00)
[2019-04-26] MEDS: ACETYLCYSTEINE 20% 200MG/ML 4 ML VIAL *FOR ORAL / INH USE ONLY NEB SCH ×4 (07:20→21:00)
[2019-04-26] MEDS: ASPIRIN 81 MG CHEWABLE TABLETS PO SCH (09:55)
[2019-04-26] MEDS: guaiFENesin 600 MG TABLET.ER (FP) PO SCH ×2 (09:56→21:57)
[2019-04-26] MEDS: LOSARTAN POTASSIUM 50 MG TABLET (FP) PO SCH (09:56)
[2019-04-26] MEDS: PANTOPRAZOLE 40 MG TABLET (FP) PO SCH (09:56)
[2019-04-26] MEDS: AZITHROMYCIN 250 MG TABLET PO SCH (09:56)
[2019-04-26] MEDS: FUROSEMIDE 40 MG/4 ML INJECTABLE VIAL IVPUSH SCH (09:58)
[2019-04-26] MEDS: BUDESONIDE/FORMETEROL FUMARATE 160/4.5 mcg INHALER IH SCH ×2 (10:08→21:58)
[2019-04-26] MEDS: TIOTROPIUM BROMIDE 2.5 MCG (SPIRIVA) RESPIMAT INHALER IH SCH (10:08)
--- NOTE | 2019-04-26 12:33 | PN ---
Progress Note, Physician Chief Complaint: 83yo female (reggie Pina) with hx of lung ca s/p resection in remission, COPD , now admitted with sob and cough. Recent travel to [place] Pt dx with a DVT to R calf on monday - not on anticoag. States R leg pain is worse, now with increasing sob. Using her inhalers at home - spiriva, breo, albuterol nebs/ inhaler. States cough started monday - her daughter started her on azithromycin for the cough on monday. Worsening sob this AM. No cp. Woke up at 4am unable to breath. No LE edema. No abd pain. No f/c. No rhinorrhea or sore throat. No n/v/ d. No other complaints. - Current Medication List Current Medications: Active Medications Acetylcysteine (Mucomyst 20 Oral / Inh Use Only*) 200 mg NEB RQID [facility] Last Admin: 04/26/19 11:39 Dose: 200 mg Albuterol Sulfate (Ventolin 0.083% Nebulizer Soln -) 1 amp NEB Q6H PRN PRN Reason: SHORT OF BREATH/WHEEZING Last Admin: 04/26/19 01:05 Dose: 1 amp Albuterol Sulfate (Ventolin 0.083% Nebulizer Soln -) 1 amp NEB RQID [facility] Last Admin: 04/26/19 11:39 Dose: 1 amp Aspirin (Asa -) 81 mg PO DAILY [facility] Last Admin: 04/26/19 09:55 Dose: 81 mg Azithromycin (Zithromax -) 250 mg PO DAILY [facility] Last Admin: 04/26/19 09:56 Dose: 250 mg Budesonide/Formoterol Fumarate (Symbicort 160/4.5mcg -) 2 puff IH BID [facility] Last Admin: 04/26/19 10:08 Dose: 2 puff Furosemide (Lasix Injection -) 20 mg IVPUSH DAILY [facility] Last Admin: 04/26/19 09:58 Dose: 20 mg Guaifenesin (Mucinex -) 600 mg PO BID [facility] Last Admin: 04/26/19 09:56 Dose: 600 mg Guaifenesin/Codeine Phosphate (Robitussin Ac -) 10 ml PO HS [facility] Last Admin: 04/25/19 22:13 Dose: 10 ml Insulin Aspart (Novolog Vial Sliding Scale -) 1 vial SQ [facility]; Protocol Last Admin: 04/26/19 11:57 Dose: Not Given Levothyroxine Sodium (Synthroid -) 50 mcg PO DAILY@0700 [facility] Last Admin: 04/26/19 06:34 Dose: 50 mcg Losartan Potassium (Cozaar -) 50 mg PO DAILY [facility] Last Admin: 04/26/19 09:56 Dose: 50 mg Methylprednisolone Sodium Succinate (Solu-Medrol -) 40 mg IVPUSH Q8H-IV [facility] Last Admin: 04/26/19 09:58 Dose: 40 mg Pantoprazole Sodium (Protonix -) 40 mg PO DAILY [facility] Last Admin: 04/26/19 09:56 Dose: 40 mg Rosuvastatin Calcium (Crestor -) 10 mg PO HS [facility] Last Admin: 04/25/19 22:04 Dose: 10 mg Tiotropium [place] (Spiriva Respimat) 2 puff IH DAILY [facility] Last Admin: 04/26/19 10:08 Dose: 2 puff - Objective Vital Signs: Vital Signs Temperature 98.3 F 04/26/19 08:33 Pulse Rate 114 H 04/26/19 08:33 Respiratory Rate 18 04/26/19 08:33 Blood Pressure 118/42 L 04/26/19 08:33 O2 Sat by Pulse Oximetry (%) 98 04/25/19 21:00 Eyes: Yes: WNL, Conjunctiva Clear, EOM Intact HENT: Yes: WNL, Atraumatic, Normocephalic Neck: Yes: WNL, Supple, Trachea Midline Cardiovascular: Yes: WNL, Regular Rate and Rhythm Respiratory: Yes: WNL, Regular, CTA Bilaterally Gastrointestinal: Yes: WNL, Normal Bowel Sounds Genitourinary: Yes: WNL Musculoskeletal: Yes: WNL Extremities: Yes: WNL Edema: No Integumentary: Yes: WNL Neurological: Yes: WNL, Alert, Oriented ...Motor Strength: WNL Psychiatric: Yes: WNL Labs: CBC, BMP 04/21/19 06:30 04/21/19 06:30 Assessment/Plan - Problems (1) Cough Code(s): R05 - COUGH (2) Lung nodule < 6cm on CT Code(s): R91.1 - SOLITARY PULMONARY NODULE (3) SOB (shortness of breath) Assessment/Plan: On bronchodilators, steroids per pumonologist, oncologist. Code(s): R06.02 - SHORTNESS OF BREATH (4) CAD (coronary artery disease) Code(s): I25.10 - ATHSCL HEART DISEASE OF [place] CORONARY ARTERY W/O ANG PCTRS (5) COPD exacerbation Code(s): J44.1 - CHRONIC OBSTRUCTIVE PULMONARY DISEASE W (ACUTE) EXACERBATION (6) Diastolic CHF Code(s): I50.30 - UNSPECIFIED DIASTOLIC (CONGESTIVE) HEART FAILURE (7) HLD (hyperlipidemia) Assessment/Plan: on rosuvastatin. Code(s): E78.5 - HYPERLIPIDEMIA, UNSPECIFIED Qualifiers: Hyperlipidemia type: pure hypercholesterolemia Qualified Code(s): E78.00 - Pure hypercholesterolemia, unspecified; E78.0 - Pure hypercholesterolemia (8) HTN (hypertension) Assessment/Plan: on losartan and furosemide. ECHO: normal LVEF Code(s): I10 - ESSENTIAL (PRIMARY) HYPERTENSION Qualifiers: Hypertension type: essential hypertension Qualified Code(s): I10 - Essential (primary) hypertension (9) Lung cancer Assessment/Plan: f/u with oncologist. Code(s): C34.90 - MALIGNANT NEOPLASM OF UNSP PART OF UNSP BRONCHUS OR LUNG
--- NOTE | 2019-04-26 12:57 | PN ---
Progress Note, Physician History of Present Illness: PULMONARY ALERT,FEELING BETTER,LESS DYSPNEIC,LESS COUGH - Current Medication List Current Medications: Active Medications Acetylcysteine (Mucomyst 20 Oral / Inh Use Only*) 200 mg NEB RQID [facility] Last Admin: 04/26/19 11:39 Dose: 200 mg Albuterol Sulfate (Ventolin 0.083% Nebulizer Soln -) 1 amp NEB Q6H PRN PRN Reason: SHORT OF BREATH/WHEEZING Last Admin: 04/26/19 01:05 Dose: 1 amp Albuterol Sulfate (Ventolin 0.083% Nebulizer Soln -) 1 amp NEB RQID [facility] Last Admin: 04/26/19 11:39 Dose: 1 amp Aspirin (Asa -) 81 mg PO DAILY [facility] Last Admin: 04/26/19 09:55 Dose: 81 mg Azithromycin (Zithromax -) 250 mg PO DAILY [facility] Last Admin: 04/26/19 09:56 Dose: 250 mg Budesonide/Formoterol Fumarate (Symbicort 160/4.5mcg -) 2 puff IH BID [facility] Last Admin: 04/26/19 10:08 Dose: 2 puff Furosemide (Lasix Injection -) 20 mg IVPUSH DAILY [facility] Last Admin: 04/26/19 09:58 Dose: 20 mg Guaifenesin (Mucinex -) 600 mg PO BID [facility] Last Admin: 04/26/19 09:56 Dose: 600 mg Guaifenesin/Codeine Phosphate (Robitussin Ac -) 10 ml PO HS [facility] Last Admin: 04/25/19 22:13 Dose: 10 ml Insulin Aspart (Novolog Vial Sliding Scale -) 1 vial SQ ACHS [facility]; Protocol Last Admin: 04/26/19 11:57 Dose: Not Given Levothyroxine Sodium (Synthroid -) 50 mcg PO DAILY@0700 [facility] Last Admin: 04/26/19 06:34 Dose: 50 mcg Losartan Potassium (Cozaar -) 50 mg PO DAILY [facility] Last Admin: 04/26/19 09:56 Dose: 50 mg Methylprednisolone Sodium Succinate (Solu-Medrol -) 40 mg IVPUSH Q8H-IV [facility] Last Admin: 04/26/19 09:58 Dose: 40 mg Pantoprazole Sodium (Protonix -) 40 mg PO DAILY [facility] Last Admin: 04/26/19 09:56 Dose: 40 mg Rosuvastatin Calcium (Crestor -) 10 mg PO HS [facility] Last Admin: 04/25/19 22:04 Dose: 10 mg Tiotropium [place] (Spiriva Respimat) 2 puff IH DAILY [facility] Last Admin: 04/26/19 10:08 Dose: 2 puff - Objective Vital Signs: Vital Signs Temperature 98.3 F 04/26/19 08:33 Pulse Rate 114 H 04/26/19 08:33 Respiratory Rate 18 04/26/19 08:33 Blood Pressure 118/42 L 04/26/19 08:33 O2 Sat by Pulse Oximetry (%) 98 04/25/19 21:00 Constitutional: Yes: Well Nourished, Calm Eyes: Yes: WNL HENT: Yes: WNL Neck: Yes: WNL Cardiovascular: Yes: Regular Rate and Rhythm, S1, S2 Respiratory: Yes: Wheezes (LESS WHEEZES BILATERALLY) Gastrointestinal: Yes: Normal Bowel Sounds, Soft Extremities: Yes: WNL Edema: No Labs: CBC, BMP 04/21/19 06:30 Problem List - Problems (1) Cough Code(s): R05 - COUGH (2) Hypothyroidism Code(s): E03.9 - HYPOTHYROIDISM, UNSPECIFIED (3) SOB (shortness of breath) Code(s): R06.02 - SHORTNESS OF BREATH (4) CAD (coronary artery disease) Code(s): I25.10 - ATHSCL HEART DISEASE OF [place] CORONARY ARTERY W/O ANG PCTRS (5) COPD exacerbation Code(s): J44.1 - CHRONIC OBSTRUCTIVE PULMONARY DISEASE W (ACUTE) EXACERBATION (6) Diabetes Code(s): E11.9 - TYPE 2 DIABETES MELLITUS WITHOUT COMPLICATIONS (7) H/O: lung cancer Code(s): Z85.118 - PERSONAL HISTORY OF MALIGNANT NEOPLASM OF BRONCHUS AND LUNG (8) HLD (hyperlipidemia) Code(s): E78.5 - HYPERLIPIDEMIA, UNSPECIFIED Qualifiers: Hyperlipidemia type: pure hypercholesterolemia Qualified Code(s): E78.00 - Pure hypercholesterolemia, unspecified; E78.0 - Pure hypercholesterolemia Assessment/Plan A/P Acute COPD Exacerbation improving h/o Lung Ca s/p lobectomy HTN Hypercholesterolemia Hypothyroidism - medrol to q12 start taper in am - inhaled bronchodilators standing and PRN - O2 as needed - DVT prophylaxis - add zithromax 250 tiw - mucomyst DR GAMEZ
[2019-04-26] MEDS: ROSUVASTATIN CA 10 MG TABLET (FP) PO SCH (21:57)
[2019-04-26] MEDS: guaiFENesin/CODEINE 10 ML UNIT-DOSE CUPS PO SCH (21:57)
--- NOTE | 2019-04-26 22:24 | PN ---
Progress Note, Physician History of Present Illness: No new changes - Current Medication List Current Medications: Active Medications Acetylcysteine (Mucomyst 20 Oral / Inh Use Only*) 200 mg NEB RQID [facility] Last Admin: 04/26/19 21:00 Dose: 200 mg Albuterol Sulfate (Ventolin 0.083% Nebulizer Soln -) 1 amp NEB Q6H PRN PRN Reason: SHORT OF BREATH/WHEEZING Last Admin: 04/26/19 01:05 Dose: 1 amp Albuterol Sulfate (Ventolin 0.083% Nebulizer Soln -) 1 amp NEB RQID [facility] Last Admin: 04/26/19 21:00 Dose: 1 amp Aspirin (Asa -) 81 mg PO DAILY [facility] Last Admin: 04/26/19 09:55 Dose: 81 mg Budesonide/Formoterol Fumarate (Symbicort 160/4.5mcg -) 2 puff IH BID [facility] Last Admin: 04/26/19 21:58 Dose: 2 puff Furosemide (Lasix Injection -) 20 mg IVPUSH DAILY [facility] Last Admin: 04/26/19 09:58 Dose: 20 mg Guaifenesin (Mucinex -) 600 mg PO BID [facility] Last Admin: 04/26/19 21:57 Dose: 600 mg Guaifenesin/Codeine Phosphate (Robitussin Ac -) 10 ml PO [facility] Last Admin: 04/26/19 21:57 Dose: 10 ml Insulin Aspart (Novolog Vial Sliding Scale -) 1 vial SQ [facility]; Protocol Last Admin: 04/26/19 21:57 Dose: 2 units Levothyroxine Sodium (Synthroid -) 50 mcg PO DAILY@0700 [facility] Last Admin: 04/26/19 06:34 Dose: 50 mcg Losartan Potassium (Cozaar -) 50 mg PO DAILY [facility] Last Admin: 04/26/19 09:56 Dose: 50 mg Methylprednisolone Sodium Succinate (Solu-Medrol -) 40 mg IVPUSH Q8H-IV [facility] Stop: 04/27/19 02:00 Last Admin: 04/26/19 17:48 Dose: 40 mg Methylprednisolone Sodium Succinate (Solu-Medrol -) 40 mg IVPUSH BID [facility] Pantoprazole Sodium (Protonix -) 40 mg PO DAILY [facility] Last Admin: 04/26/19 09:56 Dose: 40 mg Rosuvastatin Calcium (Crestor -) 10 mg PO HS [facility] Last Admin: 04/26/19 21:57 Dose: 10 mg Tiotropium [place] (Spiriva Respimat) 2 puff IH DAILY [facility] Last Admin: 04/26/19 10:08 Dose: 2 puff - Objective Vital Signs: Vital Signs Temperature 98.8 F 04/26/19 18:00 Pulse Rate 100 H 04/26/19 18:00 Respiratory Rate 16 04/26/19 18:00 Blood Pressure 110/55 L 04/26/19 18:00 O2 Sat by Pulse Oximetry (%) 98 04/26/19 09:00 Neck: Yes: WNL, Supple Cardiovascular: Yes: WNL, Regular Rate and Rhythm Respiratory: Yes: Diminished Gastrointestinal: Yes: WNL, Normal Bowel Sounds, Soft Labs: CBC, BMP 04/21/19 06:30 04/21/19 06:30 Problem List - Problems (1) COPD exacerbation Assessment/Plan: Cont IV solumedrol wc is being tapered Cont nebulizers/symbicort/spiriva Code(s): J44.1 - CHRONIC OBSTRUCTIVE PULMONARY DISEASE W (ACUTE) EXACERBATION (2) HTN (hypertension) Assessment/Plan: Bp stable Cont asa/losartan Code(s): I10 - ESSENTIAL (PRIMARY) HYPERTENSION Qualifiers: Hypertension type: essential hypertension Qualified Code(s): I10 - Essential (primary) hypertension (3) Hypothyroidism Assessment/Plan: Cont levothyroxine Code(s): E03.9 - HYPOTHYROIDISM, UNSPECIFIED (4) Diabetes Code(s): E11.9 - TYPE 2 DIABETES MELLITUS WITHOUT COMPLICATIONS (5) H/O: lung cancer Assessment/Plan: S/P lobectomy Code(s): Z85.118 - PERSONAL HISTORY OF MALIGNANT NEOPLASM OF BRONCHUS AND LUNG (6) HLD (hyperlipidemia) Assessment/Plan: Cont crestor Code(s): E78.5 - HYPERLIPIDEMIA, UNSPECIFIED Qualifiers: Hyperlipidemia type: pure hypercholesterolemia Qualified Code(s): E78.00 - Pure hypercholesterolemia, unspecified; E78.0 - Pure hypercholesterolemia (7) CAD (coronary artery disease) Code(s): I25.10 - ATHSCL HEART DISEASE OF [place] CORONARY ARTERY W/O ANG PCTRS
[2019-04-26 23:31] VITALS: BMI 24.6
[2019-04-27] MEDS: methylPREDNISolone NA SUCC 40 MG/1 ML VIAL IVPUSH SCH ×3 (01:30→21:32)
[2019-04-27] MEDS: LEVOTHYROXINE NA 50 MCG TABLET (FP) PO SCH (05:59)
[2019-04-27] MEDS: INSULIN SLIDING SCALE (NOVOLOG) 1 VIAL SQ SCH ×4 (06:00→21:59)
[2019-04-27] MEDS ORDERED: INSULIN (NOVOLOG) ASPART 100 UNITS/ML 10ML VIAL ONE (06:01)
[2019-04-27] MEDS: ACETYLCYSTEINE 20% 200MG/ML 4 ML VIAL *FOR ORAL / INH USE ONLY NEB SCH ×4 (07:43→20:30)
[2019-04-27] MEDS: ALBUTEROL SO4 0.083% IH SOL 2.5 MG/3 ML VIAL.NEB. NEB SCH ×4 (07:44→20:30)
[2019-04-27 07:49] LABS: BASO % 0.5 % (0-2.0); HEMATOCRIT 34.8 % (32.4-45.2); HEMOGLOBIN 11.6 GM/dL (10.7-15.3); LYMPH % 1.2 % (8-40); MCH 30.4 pg (25.7-33.7); MCHC 33.4 g/dl (32.0-36.0); MEAN PLT VOLUME 7.8 fl (7.5-11.1); MONO % 2.9 % (3.8-10.2); NEUT % 95.4 % (42.8-82.8); RBC 3.83 M/mm3 (3.60-5.2); RDW 13.5 % (11.6-15.6); WHITE BLOOD COUNT 16.7 K/mm3 (4.0-10.0)
[2019-04-27 08:31] LABS: ALBUMIN 2.7 g/dl (3.4-5.0); BLOOD UREA NITROGEN 45.9 mg/dL (7-18); POTASSIUM 4.1 mmol/L (3.5-5.1); TOT PROT 5.3 g/dl (6.4-8.2)
[2019-04-27] MEDS: ASPIRIN 81 MG CHEWABLE TABLETS PO SCH (09:19)
[2019-04-27] MEDS: PANTOPRAZOLE 40 MG TABLET (FP) PO SCH (09:19)
[2019-04-27] MEDS: LOSARTAN POTASSIUM 50 MG TABLET (FP) PO SCH (09:19)
[2019-04-27] MEDS: HYDROCHLOROTHIAZIDE 12.5 MG CAPSULE (FP) PO SCH (09:19)
[2019-04-27] MEDS: guaiFENesin 600 MG TABLET.ER (FP) PO SCH ×2 (09:19→21:32)
[2019-04-27] MEDS: TIOTROPIUM BROMIDE 2.5 MCG (SPIRIVA) RESPIMAT INHALER IH SCH (09:23)
[2019-04-27] MEDS: BUDESONIDE/FORMETEROL FUMARATE 160/4.5 mcg INHALER IH SCH ×2 (09:24→21:33)
--- NOTE | 2019-04-27 09:37 | PN ---
Progress Note, Physician Chief Complaint: 83yo female (reggie Pina) with hx of lung ca s/p resection in remission, COPD , now admitted with sob and cough. Recent travel to [place]. Pt dx with a DVT to R calf on monday - not on anticoag. States R leg pain is worse, now with increasing sob. Using her inhalers at home - spiriva, breo, albuterol nebs/ inhaler. States cough started monday - her daughter started her on azithromycin for the cough on monday. Worsening sob this AM. No cp. Woke up at 4am unable to breath. No LE edema. No abd pain. No f/c. No rhinorrhea or sore throat. No n/v/ d. No other complaints. - Current Medication List Current Medications: Active Medications Acetylcysteine (Mucomyst 20 Oral / Inh Use Only*) 200 mg NEB RQID [facility] Last Admin: 04/27/19 07:43 Dose: 200 mg Albuterol Sulfate (Ventolin 0.083% Nebulizer Soln -) 1 amp NEB Q6H PRN PRN Reason: SHORT OF BREATH/WHEEZING Last Admin: 04/26/19 01:05 Dose: 1 amp Albuterol Sulfate (Ventolin 0.083% Nebulizer Soln -) 1 amp NEB RQID [facility] Last Admin: 04/27/19 07:44 Dose: 1 amp Aspirin (Asa -) 81 mg PO DAILY [facility] Last Admin: 04/27/19 09:19 Dose: 81 mg Budesonide/Formoterol Fumarate (Symbicort 160/4.5mcg -) 2 puff IH BID [facility] Last Admin: 04/27/19 09:24 Dose: 2 puff Guaifenesin (Mucinex -) 600 mg PO BID [facility] Last Admin: 04/27/19 09:19 Dose: 600 mg Guaifenesin/Codeine Phosphate (Robitussin Ac -) 10 ml PO HS [facility] Last Admin: 04/26/19 21:57 Dose: 10 ml Hydrochlorothiazide (Hctz -) 12.5 mg PO DAILY [facility] Last Admin: 04/27/19 09:19 Dose: 12.5 mg Insulin Aspart (Novolog Vial Sliding Scale -) 1 vial SQ ACHS [facility]; Protocol Last Admin: 04/27/19 06:00 Dose: Not Given Levothyroxine Sodium (Synthroid -) 50 mcg PO DAILY@0700 [facility] Last Admin: 04/27/19 05:59 Dose: 50 mcg Losartan Potassium (Cozaar -) 50 mg PO DAILY [facility] Last Admin: 04/27/19 09:19 Dose: 50 mg Methylprednisolone Sodium Succinate (Solu-Medrol -) 40 mg IVPUSH BID [facility] Last Admin: 04/27/19 09:20 Dose: 40 mg Pantoprazole Sodium (Protonix -) 40 mg PO DAILY [facility] Last Admin: 04/27/19 09:19 Dose: 40 mg Rosuvastatin Calcium (Crestor -) 10 mg PO HS [facility] Last Admin: 04/26/19 21:57 Dose: 10 mg Tiotropium [place] (Spiriva Respimat) 2 puff IH DAILY [facility] Last Admin: 04/27/19 09:23 Dose: 2 puff - Objective Vital Signs: Vital Signs Temperature 98.7 F 04/27/19 09:00 Pulse Rate 100 H 04/27/19 09:00 Respiratory Rate 18 04/27/19 09:00 Blood Pressure 112/56 L 04/27/19 09:00 O2 Sat by Pulse Oximetry (%) 97 04/26/19 21:00 Eyes: Yes: WNL, Conjunctiva Clear, EOM Intact HENT: Yes: WNL, Atraumatic, Normocephalic Neck: Yes: WNL, Supple, Trachea Midline Cardiovascular: Yes: WNL, Regular Rate and Rhythm Respiratory: Yes: WNL, Regular, CTA Bilaterally Gastrointestinal: Yes: WNL, Normal Bowel Sounds Genitourinary: Yes: WNL Musculoskeletal: Yes: WNL Extremities: Yes: WNL Edema: No Integumentary: Yes: WNL Neurological: Yes: WNL, Alert, Oriented ...Motor Strength: WNL Psychiatric: Yes: WNL Labs: CBC, BMP 04/27/19 07:15 04/27/19 07:15 Assessment/Plan - Problems (1) Cough Code(s): R05 - COUGH (2) Lung nodule < 6cm on CT Code(s): R91.1 - SOLITARY PULMONARY NODULE (3) SOB (shortness of breath) Assessment/Plan: On bronchodilators, steroids per pumonologist, oncologist. Code(s): R06.02 - SHORTNESS OF BREATH (4) CAD (coronary artery disease) Code(s): I25.10 - ATHSCL HEART DISEASE OF [place] CORONARY ARTERY W/O ANG PCTRS (5) COPD exacerbation Code(s): J44.1 - CHRONIC OBSTRUCTIVE PULMONARY DISEASE W (ACUTE) EXACERBATION (6) Diastolic CHF Code(s): I50.30 - UNSPECIFIED DIASTOLIC (CONGESTIVE) HEART FAILURE (7) HLD (hyperlipidemia) Assessment/Plan: on rosuvastatin. Code(s): E78.5 - HYPERLIPIDEMIA, UNSPECIFIED Qualifiers: Hyperlipidemia type: pure hypercholesterolemia Qualified Code(s): E78.00 - Pure hypercholesterolemia, unspecified; E78.0 - Pure hypercholesterolemia (8) HTN (hypertension) Assessment/Plan: on losartan and furosemide. ECHO: normal LVEF Code(s): I10 - ESSENTIAL (PRIMARY) HYPERTENSION Qualifiers: Hypertension type: essential hypertension Qualified Code(s): I10 - Essential (primary) hypertension (9) Lung cancer Assessment/Plan: f/u with oncologist. Code(s): C34.90 - MALIGNANT NEOPLASM OF UNSP PART OF UNSP BRONCHUS OR LUNG
--- NOTE | 2019-04-27 13:23 | PN ---
Progress Note (short form) - Note Progress Note: PULMONARY States breathing better today but still persistent cough at night. Chest feels looser. Vital Signs Period Temp Pulse Resp BP Sys/Hart Pulse Ox Last 24 Hr 97.9 F-98.8 F 91-108 16-21 107-115/49-61 97-97 Gen: NAD at rest Heart: RRR Lung: less scattered rhonchi, wheezes, better air entry Abd: soft, nontender Ext: no edema CBC, BMP 04/27/19 07:15 04/27/19 07:15 Active Medications Acetylcysteine (Mucomyst 20 Oral / Inh Use Only*) 200 mg NEB RQID [facility] Last Admin: 04/27/19 12:27 Dose: 200 mg Albuterol Sulfate (Ventolin 0.083% Nebulizer Soln -) 1 amp NEB Q6H PRN PRN Reason: SHORT OF BREATH/WHEEZING Last Admin: 04/26/19 01:05 Dose: 1 amp Albuterol Sulfate (Ventolin 0.083% Nebulizer Soln -) 1 amp NEB RQID [facility] Last Admin: 04/27/19 12:28 Dose: 1 amp Aspirin (Asa -) 81 mg PO DAILY [facility] Last Admin: 04/27/19 09:19 Dose: 81 mg Budesonide/Formoterol Fumarate (Symbicort 160/4.5mcg -) 2 puff IH BID [facility] Last Admin: 04/27/19 09:24 Dose: 2 puff Guaifenesin (Mucinex -) 600 mg PO BID [facility] Last Admin: 04/27/19 09:19 Dose: 600 mg Guaifenesin/Codeine Phosphate (Robitussin Ac -) 10 ml PO HS [facility] Last Admin: 04/26/19 21:57 Dose: 10 ml Hydrochlorothiazide (Hctz -) 12.5 mg PO DAILY [facility] Last Admin: 04/27/19 09:19 Dose: 12.5 mg Insulin Aspart (Novolog Vial Sliding Scale -) 1 vial SQ ACHS [facility]; Protocol Last Admin: 04/27/19 11:48 Dose: 2 units Levothyroxine Sodium (Synthroid -) 50 mcg PO DAILY@0700 [facility] Last Admin: 04/27/19 05:59 Dose: 50 mcg Losartan Potassium (Cozaar -) 50 mg PO DAILY [facility] Last Admin: 04/27/19 09:19 Dose: 50 mg Methylprednisolone Sodium Succinate (Solu-Medrol -) 40 mg IVPUSH BID [facility] Last Admin: 04/27/19 09:20 Dose: 40 mg Pantoprazole Sodium (Protonix -) 40 mg PO DAILY [facility] Last Admin: 04/27/19 09:19 Dose: 40 mg Rosuvastatin Calcium (Crestor -) 10 mg PO HS [facility] Last Admin: 04/26/19 21:57 Dose: 10 mg Tiotropium [place] (Spiriva Respimat) 2 puff IH DAILY [facility] Last Admin: 04/27/19 09:23 Dose: 2 puff A/P Acute COPD Exacerbation h/o Lung Ca s/p lobectomy HTN Hypercholesterolemia Hypothyroidism - continue medrol q8h - cough suppressants - continue inhaled bronchodilators, mucomyst - O2 as needed - DVT prophylaxis
[2019-04-27 14:38] LABS: PLATELET COUNT 223 K/MM3 (134-434)
[2019-04-27] MEDS ORDERED: PT OWN MED DRAWER 7, Y5N ONE (14:50)
[2019-04-27 17:50] LABS: ANISOCYTOSIS 0; MACROCYTOSIS 0; PLATELET ESTIMATE NORMAL
[2019-04-27] MEDS: ROSUVASTATIN CA 10 MG TABLET (FP) PO SCH (21:32)
[2019-04-27] MEDS: guaiFENesin/CODEINE 10 ML UNIT-DOSE CUPS PO SCH (21:32)
--- NOTE | 2019-04-28 00:34 | PN ---
Progress Note (short form) - Note Progress Note: covering for Dr Benton patient sitting in chair / comfortable but c/o persistent cough - moist but non productive Vital Signs Period Temp Pulse Resp BP Sys/Hart Pulse Ox Last 24 Hr 98.5 F-98.7 F 78-102 18-21 106-118/56-61 97-98 neck supple heart S1/S2 reg lungs scattered ronchi exp wheezing abd soft non tender ext no edema CBC, BMP 04/27/19 07:15 04/27/19 07:15 Active Medications Acetylcysteine (Mucomyst 20 Oral / Inh Use Only*) 200 mg NEB RQID [facility] Last Admin: 04/27/19 20:30 Dose: 200 mg Albuterol Sulfate (Ventolin 0.083% Nebulizer Soln -) 1 amp NEB Q6H PRN PRN Reason: SHORT OF BREATH/WHEEZING Last Admin: 04/26/19 01:05 Dose: 1 amp Albuterol Sulfate (Ventolin 0.083% Nebulizer Soln -) 1 amp NEB RQID [facility] Last Admin: 04/27/19 20:30 Dose: 1 amp Aspirin (Asa -) 81 mg PO DAILY [facility] Last Admin: 04/27/19 09:19 Dose: 81 mg Budesonide/Formoterol Fumarate (Symbicort 160/4.5mcg -) 2 puff IH BID [facility] Last Admin: 04/27/19 21:33 Dose: 2 puff Guaifenesin (Mucinex -) 600 mg PO BID [facility] Last Admin: 04/27/19 21:32 Dose: 600 mg Guaifenesin/Codeine Phosphate (Robitussin Ac -) 10 ml PO HS [facility] Last Admin: 04/27/19 21:32 Dose: 10 ml Hydrochlorothiazide (Hctz -) 12.5 mg PO DAILY [facility] Last Admin: 04/27/19 09:19 Dose: 12.5 mg Insulin Aspart (Novolog Vial Sliding Scale -) 1 vial SQ ACHS [facility]; Protocol Last Admin: 04/27/19 21:59 Dose: 2 units Levothyroxine Sodium (Synthroid -) 50 mcg PO DAILY@0700 [facility] Last Admin: 04/27/19 05:59 Dose: 50 mcg Losartan Potassium (Cozaar -) 50 mg PO DAILY [facility] Last Admin: 04/27/19 09:19 Dose: 50 mg Methylprednisolone Sodium Succinate (Solu-Medrol -) 40 mg IVPUSH BID [facility] Last Admin: 04/27/19 21:32 Dose: 40 mg Pantoprazole Sodium (Protonix -) 40 mg PO DAILY [facility] Last Admin: 04/27/19 09:19 Dose: 40 mg Rosuvastatin Calcium (Crestor -) 10 mg PO HS [facility] Last Admin: 04/27/19 21:32 Dose: 10 mg Tiotropium [place] (Spiriva Respimat) 2 puff IH DAILY [facility] Last Admin: 04/27/19 09:23 Dose: 2 puff A/P # Acute COPD Exacerbation continue steroids / neb / PPi/ O2 add expectorant # hx Lung Ca s/p lopectomy stable # HTN continue home meds # Hypothyroid continue synthroid # HLD continue statins
[2019-04-28] MEDS: INSULIN SLIDING SCALE (NOVOLOG) 1 VIAL SQ SCH ×4 (06:00→21:14)
[2019-04-28] MEDS: LEVOTHYROXINE NA 50 MCG TABLET (FP) PO SCH (06:01)
[2019-04-28] MEDS: ACETYLCYSTEINE 20% 200MG/ML 4 ML VIAL *FOR ORAL / INH USE ONLY NEB SCH ×4 (07:27→20:05)
[2019-04-28] MEDS: ALBUTEROL SO4 0.083% IH SOL 2.5 MG/3 ML VIAL.NEB. NEB SCH ×4 (07:28→20:05)
--- NOTE | 2019-04-28 09:00 | PN ---
Progress Note, Physician Chief Complaint: 83yo female (reggie Pina) with hx of lung ca s/p resection in remission, COPD , now admitted with sob and cough. Recent travel to [place]. Pt dx with a DVT to R calf on monday - not on anticoag. States R leg pain is worse, now with increasing sob. Using her inhalers at home - spiriva, breo, albuterol nebs/ inhaler. States cough started monday - her daughter started her on azithromycin for the cough on monday. Worsening sob this AM. No cp. Woke up at 4am unable to breath. No LE edema. No abd pain. No f/c. No rhinorrhea or sore throat. No n/v/ d. No other complaints. - Current Medication List Current Medications: Active Medications Acetylcysteine (Mucomyst 20 Oral / Inh Use Only*) 200 mg NEB RQID [facility] Last Admin: 04/28/19 07:27 Dose: 200 mg Albuterol Sulfate (Ventolin 0.083% Nebulizer Soln -) 1 amp NEB Q6H PRN PRN Reason: SHORT OF BREATH/WHEEZING Last Admin: 04/26/19 01:05 Dose: 1 amp Albuterol Sulfate (Ventolin 0.083% Nebulizer Soln -) 1 amp NEB RQID [facility] Last Admin: 04/28/19 07:28 Dose: 1 amp Aspirin (Asa -) 81 mg PO DAILY [facility] Last Admin: 04/27/19 09:19 Dose: 81 mg Budesonide/Formoterol Fumarate (Symbicort 160/4.5mcg -) 2 puff IH BID [facility] Last Admin: 04/27/19 21:33 Dose: 2 puff Guaifenesin (Mucinex -) 600 mg PO BID [facility] Last Admin: 04/27/19 21:32 Dose: 600 mg Guaifenesin/Codeine Phosphate (Robitussin Ac -) 10 ml PO HS [facility] Last Admin: 04/27/19 21:32 Dose: 10 ml Hydrochlorothiazide (Hctz -) 12.5 mg PO DAILY [facility] Last Admin: 04/27/19 09:19 Dose: 12.5 mg Insulin Aspart (Novolog Vial Sliding Scale -) 1 vial SQ ACHS [facility]; Protocol Last Admin: 04/28/19 06:00 Dose: 2 units Levothyroxine Sodium (Synthroid -) 50 mcg PO DAILY@0700 [facility] Last Admin: 04/28/19 06:01 Dose: 50 mcg Losartan Potassium (Cozaar -) 50 mg PO DAILY [facility] Last Admin: 04/27/19 09:19 Dose: 50 mg Methylprednisolone Sodium Succinate (Solu-Medrol -) 40 mg IVPUSH BID [facility] Last Admin: 04/27/19 21:32 Dose: 40 mg Pantoprazole Sodium (Protonix -) 40 mg PO DAILY [facility] Last Admin: 04/27/19 09:19 Dose: 40 mg Rosuvastatin Calcium (Crestor -) 10 mg PO HS [facility] Last Admin: 04/27/19 21:32 Dose: 10 mg Tiotropium [place] (Spiriva Respimat) 2 puff IH DAILY [facility] Last Admin: 04/27/19 09:23 Dose: 2 puff - Objective Vital Signs: Vital Signs Temperature 98.9 F 04/28/19 07:05 Pulse Rate 87 04/28/19 07:05 Respiratory Rate 21 H 04/28/19 07:05 Blood Pressure 103/58 L 04/28/19 07:05 O2 Sat by Pulse Oximetry (%) 98 04/27/19 21:00 Eyes: Yes: WNL, Conjunctiva Clear, EOM Intact HENT: Yes: WNL, Atraumatic, Normocephalic Neck: Yes: WNL, Supple, Trachea Midline Cardiovascular: Yes: WNL, Regular Rate and Rhythm Respiratory: Yes: WNL, Regular, CTA Bilaterally Gastrointestinal: Yes: WNL, Normal Bowel Sounds Genitourinary: Yes: WNL Musculoskeletal: Yes: WNL Extremities: Yes: WNL Edema: No Integumentary: Yes: WNL Neurological: Yes: WNL, Alert, Oriented ...Motor Strength: WNL Psychiatric: Yes: WNL Labs: CBC, BMP 04/27/19 07:15 04/27/19 07:15 Assessment/Plan - Problems (1) Cough Code(s): R05 - COUGH (2) Lung nodule < 6cm on CT Code(s): R91.1 - SOLITARY PULMONARY NODULE s/p lobectomy (3) SOB (shortness of breath) Assessment/Plan: On bronchodilators, steroids per pumonologist, oncologist. Code(s): R06.02 - SHORTNESS OF BREATH (4) CAD (coronary artery disease) Code(s): I25.10 - ATHSCL HEART DISEASE OF [place] CORONARY ARTERY W/O ANG PCTRS (5) COPD exacerbation Code(s): J44.1 - CHRONIC OBSTRUCTIVE PULMONARY DISEASE W (ACUTE) EXACERBATION (6) Diastolic CHF Code(s): I50.30 - UNSPECIFIED DIASTOLIC (CONGESTIVE) HEART FAILURE (7) HLD (hyperlipidemia) Assessment/Plan: on rosuvastatin. Code(s): E78.5 - HYPERLIPIDEMIA, UNSPECIFIED Qualifiers: Hyperlipidemia type: pure hypercholesterolemia Qualified Code(s): E78.00 - Pure hypercholesterolemia, unspecified; E78.0 - Pure hypercholesterolemia (8) HTN (hypertension) Assessment/Plan: on losartan and furosemide. ECHO: normal LVEF Code(s): I10 - ESSENTIAL (PRIMARY) HYPERTENSION Qualifiers: Hypertension type: essential hypertension Qualified Code(s): I10 - Essential (primary) hypertension (9) Lung cancer Assessment/Plan: f/u with oncologist. Code(s): C34.90 - MALIGNANT NEOPLASM OF UNSP PART OF UNSP BRONCHUS OR LUNG
[2019-04-28] MEDS: TIOTROPIUM BROMIDE 2.5 MCG (SPIRIVA) RESPIMAT INHALER IH SCH (09:25)
[2019-04-28] MEDS: LOSARTAN POTASSIUM 50 MG TABLET (FP) PO SCH (09:37)
[2019-04-28] MEDS: methylPREDNISolone NA SUCC 40 MG/1 ML VIAL IVPUSH SCH ×2 (09:37→21:15)
[2019-04-28] MEDS: guaiFENesin 600 MG TABLET.ER (FP) PO SCH ×2 (09:37→21:15)
[2019-04-28] MEDS: HYDROCHLOROTHIAZIDE 12.5 MG CAPSULE (FP) PO SCH (09:37)
[2019-04-28] MEDS: PANTOPRAZOLE 40 MG TABLET (FP) PO SCH (09:37)
[2019-04-28] MEDS: ASPIRIN 81 MG CHEWABLE TABLETS PO SCH (09:37)
[2019-04-28] MEDS: BUDESONIDE/FORMETEROL FUMARATE 160/4.5 mcg INHALER IH SCH ×2 (09:38→21:22)
--- NOTE | 2019-04-28 13:26 | PN ---
Progress Note (short form) - Note Progress Note: PULMONARY States breathing better today but still persistent cough at night. Chest feels looser. Vital Signs Period Temp Pulse Resp BP Sys/Hart Pulse Ox Last 24 Hr 97.9 F-98.8 F 91-108 16-21 107-115/49-61 97-97 Gen: NAD at rest Heart: RRR Lung: less scattered rhonchi, wheezes, better air entry Abd: soft, nontender Ext: no edema CBC, BMP 04/27/19 07:15 04/27/19 07:15 Active Medications Acetylcysteine (Mucomyst 20 Oral / Inh Use Only*) 200 mg NEB RQID [facility] Last Admin: 04/28/19 11:34 Dose: 200 mg Albuterol Sulfate (Ventolin 0.083% Nebulizer Soln -) 1 amp NEB Q6H PRN PRN Reason: SHORT OF BREATH/WHEEZING Last Admin: 04/26/19 01:05 Dose: 1 amp Albuterol Sulfate (Ventolin 0.083% Nebulizer Soln -) 1 amp NEB RQID [facility] Last Admin: 04/28/19 11:34 Dose: 1 amp Aspirin (Asa -) 81 mg PO DAILY [facility] Last Admin: 04/28/19 09:37 Dose: 81 mg Budesonide/Formoterol Fumarate (Symbicort 160/4.5mcg -) 2 puff IH BID [facility] Last Admin: 04/28/19 09:38 Dose: 2 puff Guaifenesin (Mucinex -) 600 mg PO BID [facility] Last Admin: 04/28/19 09:37 Dose: 600 mg Guaifenesin/Codeine Phosphate (Robitussin Ac -) 10 ml PO HS [facility] Last Admin: 04/27/19 21:32 Dose: 10 ml Hydrochlorothiazide (Hctz -) 12.5 mg PO DAILY [facility] Last Admin: 04/28/19 09:37 Dose: 12.5 mg Insulin Aspart (Novolog Vial Sliding Scale -) 1 vial SQ ACHS [facility]; Protocol Last Admin: 04/28/19 11:55 Dose: 2 units Levothyroxine Sodium (Synthroid -) 50 mcg PO DAILY@0700 [facility] Last Admin: 04/28/19 06:01 Dose: 50 mcg Losartan Potassium (Cozaar -) 50 mg PO DAILY [facility] Last Admin: 04/28/19 09:37 Dose: 50 mg Methylprednisolone Sodium Succinate (Solu-Medrol -) 40 mg IVPUSH BID [facility] Last Admin: 04/28/19 09:37 Dose: 40 mg Pantoprazole Sodium (Protonix -) 40 mg PO DAILY [facility] Last Admin: 04/28/19 09:37 Dose: 40 mg Rosuvastatin Calcium (Crestor -) 10 mg PO HS [facility] Last Admin: 04/27/19 21:32 Dose: 10 mg Tiotropium [place] (Spiriva Respimat) 2 puff IH DAILY [facility] Last Admin: 04/28/19 09:25 Dose: 2 puff A/P Acute COPD Exacerbation h/o Lung Ca s/p lobectomy HTN Hypercholesterolemia Hypothyroidism - continue medrol q12h, can change steroids to PO prednisone 40mg daily in AM - cough suppressants - continue inhaled bronchodilators, mucomyst - O2 as needed - DVT prophylaxis
[2019-04-28] MEDS: guaiFENesin/CODEINE 10 ML UNIT-DOSE CUPS PO SCH (21:14)
[2019-04-28] MEDS: ROSUVASTATIN CA 10 MG TABLET (FP) PO SCH (21:15)
--- NOTE | 2019-04-28 22:17 | PN ---
Progress Note, Physician - Current Medication List Current Medications: Active Medications Acetylcysteine (Mucomyst 20 Oral / Inh Use Only*) 200 mg NEB RQID [facility] Last Admin: 04/28/19 20:05 Dose: 200 mg Albuterol Sulfate (Ventolin 0.083% Nebulizer Soln -) 1 amp NEB Q6H PRN PRN Reason: SHORT OF BREATH/WHEEZING Last Admin: 04/26/19 01:05 Dose: 1 amp Albuterol Sulfate (Ventolin 0.083% Nebulizer Soln -) 1 amp NEB RQID [facility] Last Admin: 04/28/19 20:05 Dose: 1 amp Aspirin (Asa -) 81 mg PO DAILY [facility] Last Admin: 04/28/19 09:37 Dose: 81 mg Budesonide/Formoterol Fumarate (Symbicort 160/4.5mcg -) 2 puff IH BID [facility] Last Admin: 04/28/19 21:22 Dose: 2 puff Guaifenesin (Mucinex -) 600 mg PO BID [facility] Last Admin: 04/28/19 21:15 Dose: 600 mg Guaifenesin/Codeine Phosphate (Robitussin Ac -) 10 ml PO [facility] Last Admin: 04/28/19 21:14 Dose: 10 ml Hydrochlorothiazide (Hctz -) 12.5 mg PO DAILY [facility] Last Admin: 04/28/19 09:37 Dose: 12.5 mg Insulin Aspart (Novolog Vial Sliding Scale -) 1 vial SQ [facility]; Protocol Last Admin: 04/28/19 21:14 Dose: 2 units Levothyroxine Sodium (Synthroid -) 50 mcg PO DAILY@0700 [facility] Last Admin: 04/28/19 06:01 Dose: 50 mcg Losartan Potassium (Cozaar -) 50 mg PO DAILY [facility] Last Admin: 04/28/19 09:37 Dose: 50 mg Methylprednisolone Sodium Succinate (Solu-Medrol -) 40 mg IVPUSH BID [facility] Last Admin: 04/28/19 21:15 Dose: 40 mg Pantoprazole Sodium (Protonix -) 40 mg PO DAILY [facility] Last Admin: 04/28/19 09:37 Dose: 40 mg Rosuvastatin Calcium (Crestor -) 10 mg PO HS [facility] Last Admin: 04/28/19 21:15 Dose: 10 mg Tiotropium [place] (Spiriva Respimat) 2 puff IH DAILY [facility] Last Admin: 04/28/19 09:25 Dose: 2 puff - Objective Vital Signs: Vital Signs Temperature 98.4 F 04/28/19 19:36 Pulse Rate 104 H 04/28/19 19:36 Respiratory Rate 20 04/28/19 19:36 Blood Pressure 118/62 04/28/19 19:36 O2 Sat by Pulse Oximetry (%) 98 04/28/19 20:09 Neck: Yes: WNL, Supple Cardiovascular: Yes: WNL, Regular Rate and Rhythm Respiratory: Yes: Rhonchi Gastrointestinal: Yes: WNL, Normal Bowel Sounds, Soft Labs: CBC, BMP 04/27/19 07:15 04/27/19 07:15 Problem List - Problems (1) COPD exacerbation Assessment/Plan: Cont IV solumedrol still needed Check CXR Cont nebulizers/symbicort/spiriva Code(s): J44.1 - CHRONIC OBSTRUCTIVE PULMONARY DISEASE W (ACUTE) EXACERBATION (2) HTN (hypertension) Assessment/Plan: Bp stable Cont asa/losartan Code(s): I10 - ESSENTIAL (PRIMARY) HYPERTENSION Qualifiers: Hypertension type: essential hypertension Qualified Code(s): I10 - Essential (primary) hypertension (3) Hypothyroidism Assessment/Plan: Cont levothyroxine Code(s): E03.9 - HYPOTHYROIDISM, UNSPECIFIED (4) Diabetes Code(s): E11.9 - TYPE 2 DIABETES MELLITUS WITHOUT COMPLICATIONS (5) H/O: lung cancer Assessment/Plan: S/P lobectomy Code(s): Z85.118 - PERSONAL HISTORY OF MALIGNANT NEOPLASM OF BRONCHUS AND LUNG (6) HLD (hyperlipidemia) Assessment/Plan: Cont crestor Code(s): E78.5 - HYPERLIPIDEMIA, UNSPECIFIED Qualifiers: Hyperlipidemia type: pure hypercholesterolemia Qualified Code(s): E78.00 - Pure hypercholesterolemia, unspecified; E78.0 - Pure hypercholesterolemia (7) CAD (coronary artery disease) Code(s): I25.10 - ATHSCL HEART DISEASE OF [place] CORONARY ARTERY W/O ANG PCTRS
[2019-04-29] MEDS: LEVOTHYROXINE NA 50 MCG TABLET (FP) PO SCH (06:00)
[2019-04-29] MEDS: INSULIN SLIDING SCALE (NOVOLOG) 1 VIAL SQ SCH ×4 (06:00→21:08)
[2019-04-29] MEDS: ACETYLCYSTEINE 20% 200MG/ML 4 ML VIAL *FOR ORAL / INH USE ONLY NEB SCH ×4 (07:15→20:26)
[2019-04-29] MEDS: ALBUTEROL SO4 0.083% IH SOL 2.5 MG/3 ML VIAL.NEB. NEB SCH ×4 (07:15→20:27)
--- NOTE | 2019-04-29 09:17 | PN ---
Progress Note, Physician Chief Complaint: 83yo female (reggie Pina) with hx of lung ca s/p resection in remission, COPD , now admitted with sob and cough. Recent travel to [place] Pt dx with a DVT to R calf on monday - not on anticoag. States R leg pain is worse, now with increasing sob. Using her inhalers at home - spiriva, breo, albuterol nebs/ inhaler. States cough started monday - her daughter started her on azithromycin for the cough on monday. Worsening sob this AM. No cp. Woke up at 4am unable to breath. No LE edema. No abd pain. No f/c. No rhinorrhea or sore throat. No n/v/ d. No other complaints. - Current Medication List Current Medications: Active Medications Acetylcysteine (Mucomyst 20 Oral / Inh Use Only*) 200 mg NEB RQID [facility] Last Admin: 04/29/19 07:15 Dose: 200 mg Albuterol Sulfate (Ventolin 0.083% Nebulizer Soln -) 1 amp NEB Q6H PRN PRN Reason: SHORT OF BREATH/WHEEZING Last Admin: 04/26/19 01:05 Dose: 1 amp Albuterol Sulfate (Ventolin 0.083% Nebulizer Soln -) 1 amp NEB RQID [facility] Last Admin: 04/29/19 07:15 Dose: 1 amp Aspirin (Asa -) 81 mg PO DAILY [facility] Last Admin: 04/28/19 09:37 Dose: 81 mg Budesonide/Formoterol Fumarate (Symbicort 160/4.5mcg -) 2 puff IH BID [facility] Last Admin: 04/28/19 21:22 Dose: 2 puff Guaifenesin (Mucinex -) 600 mg PO BID [facility] Last Admin: 04/28/19 21:15 Dose: 600 mg Guaifenesin/Codeine Phosphate (Robitussin Ac -) 10 ml PO HS [facility] Last Admin: 04/28/19 21:14 Dose: 10 ml Hydrochlorothiazide (Hctz -) 12.5 mg PO DAILY [facility] Last Admin: 04/28/19 09:37 Dose: 12.5 mg Insulin Aspart (Novolog Vial Sliding Scale -) 1 vial SQ ACHS [facility]; Protocol Last Admin: 04/29/19 06:00 Dose: 4 units Levothyroxine Sodium (Synthroid -) 50 mcg PO DAILY@0700 [facility] Last Admin: 04/29/19 06:00 Dose: 50 mcg Losartan Potassium (Cozaar -) 50 mg PO DAILY [facility] Last Admin: 04/28/19 09:37 Dose: 50 mg Methylprednisolone Sodium Succinate (Solu-Medrol -) 40 mg IVPUSH BID [facility] Last Admin: 04/28/19 21:15 Dose: 40 mg Pantoprazole Sodium (Protonix -) 40 mg PO DAILY [facility] Last Admin: 04/28/19 09:37 Dose: 40 mg Rosuvastatin Calcium (Crestor -) 10 mg PO HS [facility] Last Admin: 04/28/19 21:15 Dose: 10 mg Tiotropium [place] (Spiriva Respimat) 2 puff IH DAILY [facility] Last Admin: 04/28/19 09:25 Dose: 2 puff - Objective Vital Signs: Vital Signs Temperature 98.6 F 04/29/19 06:00 Pulse Rate 89 04/29/19 06:00 Respiratory Rate 20 04/29/19 06:00 Blood Pressure 106/52 L 04/29/19 06:00 O2 Sat by Pulse Oximetry (%) 98 04/28/19 20:09 Eyes: Yes: WNL, Conjunctiva Clear, EOM Intact HENT: Yes: WNL, Atraumatic, Normocephalic Neck: Yes: WNL, Supple, Trachea Midline Cardiovascular: Yes: WNL, Regular Rate and Rhythm Respiratory: Yes: WNL, Regular, CTA Bilaterally Gastrointestinal: Yes: WNL, Normal Bowel Sounds Genitourinary: Yes: WNL Musculoskeletal: Yes: WNL Extremities: Yes: WNL Edema: No Integumentary: Yes: WNL Neurological: Yes: WNL, Alert, Oriented ...Motor Strength: WNL Psychiatric: Yes: WNL Labs: CBC, BMP 04/27/19 07:15 04/27/19 07:15 Assessment/Plan - Problems (1) Cough Code(s): R05 - COUGH (2) Lung nodule < 6cm on CT Code(s): R91.1 - SOLITARY PULMONARY NODULE s/p lobectomy (3) SOB (shortness of breath) Assessment/Plan: On bronchodilators, steroids per pumonologist, oncologist. Code(s): R06.02 - SHORTNESS OF BREATH (4) CAD (coronary artery disease) Code(s): I25.10 - ATHSCL HEART DISEASE OF [place] CORONARY ARTERY W/O ANG PCTRS (5) COPD exacerbation Code(s): J44.1 - CHRONIC OBSTRUCTIVE PULMONARY DISEASE W (ACUTE) EXACERBATION (6) Diastolic CHF Code(s): I50.30 - UNSPECIFIED DIASTOLIC (CONGESTIVE) HEART FAILURE (7) HLD (hyperlipidemia) Assessment/Plan: on rosuvastatin. Code(s): E78.5 - HYPERLIPIDEMIA, UNSPECIFIED Qualifiers: Hyperlipidemia type: pure hypercholesterolemia Qualified Code(s): E78.00 - Pure hypercholesterolemia, unspecified; E78.0 - Pure hypercholesterolemia (8) HTN (hypertension) Assessment/Plan: on losartan and furosemide. ECHO: normal LVEF Code(s): I10 - ESSENTIAL (PRIMARY) HYPERTENSION Qualifiers: Hypertension type: essential hypertension Qualified Code(s): I10 - Essential (primary) hypertension (9) Lung cancer Assessment/Plan: f/u with oncologist. Code(s): C34.90 - MALIGNANT NEOPLASM OF UNSP PART OF UNSP BRONCHUS OR LUNG
[2019-04-29] MEDS: HYDROCHLOROTHIAZIDE 12.5 MG CAPSULE (FP) PO SCH (09:54)
[2019-04-29] MEDS: methylPREDNISolone NA SUCC 40 MG/1 ML VIAL IVPUSH SCH (09:54)
[2019-04-29] MEDS: LOSARTAN POTASSIUM 50 MG TABLET (FP) PO SCH (09:54)
[2019-04-29] MEDS: PANTOPRAZOLE 40 MG TABLET (FP) PO SCH (09:54)
[2019-04-29] MEDS: ASPIRIN 81 MG CHEWABLE TABLETS PO SCH (09:54)
[2019-04-29] MEDS: guaiFENesin 600 MG TABLET.ER (FP) PO SCH ×2 (09:54→21:08)
[2019-04-29] MEDS: TIOTROPIUM BROMIDE 2.5 MCG (SPIRIVA) RESPIMAT INHALER IH SCH (09:57)
[2019-04-29] MEDS: BUDESONIDE/FORMETEROL FUMARATE 160/4.5 mcg INHALER IH SCH ×2 (09:57→21:09)
--- NOTE | 2019-04-29 11:39 | PN ---
Progress Note (short form) - Note Progress Note: OOB to chair and NAD on NC O2. States overall breathing is better but still cough at night. Intake & Output 04/26/19 04/27/19 04/28/19 04/29/19 23:59 23:59 23:59 23:59 Intake Total 790 950 420 Balance 790 950 420 Weight 122 lb 124 lb 122 lb 5 oz 125 lb 8 oz Last Vital Signs Temp Pulse Resp BP Pulse Ox 98.6 F 89 20 106/52 L 98 04/29/19 06:00 04/29/19 06:00 04/29/19 06:00 04/29/19 06:00 04/28/19 20:09 Active Medications Acetylcysteine (Mucomyst 20 Oral / Inh Use Only*) 200 mg NEB RQID [facility] Last Admin: 04/29/19 11:27 Dose: 200 mg Albuterol Sulfate (Ventolin 0.083% Nebulizer Soln -) 1 amp NEB Q6H PRN PRN Reason: SHORT OF BREATH/WHEEZING Last Admin: 04/26/19 01:05 Dose: 1 amp Albuterol Sulfate (Ventolin 0.083% Nebulizer Soln -) 1 amp NEB RQID [facility] Last Admin: 04/29/19 11:27 Dose: 1 amp Aspirin (Asa -) 81 mg PO DAILY [facility] Last Admin: 04/29/19 09:54 Dose: 81 mg Budesonide/Formoterol Fumarate (Symbicort 160/4.5mcg -) 2 puff IH BID [facility] Last Admin: 04/29/19 09:57 Dose: 2 puff Guaifenesin (Mucinex -) 600 mg PO BID [facility] Last Admin: 04/29/19 09:54 Dose: 600 mg Guaifenesin/Codeine Phosphate (Robitussin Ac -) 10 ml PO HS [facility] Last Admin: 04/28/19 21:14 Dose: 10 ml Hydrochlorothiazide (Hctz -) 12.5 mg PO DAILY [facility] Last Admin: 04/29/19 09:54 Dose: 12.5 mg Insulin Aspart (Novolog Vial Sliding Scale -) 1 vial SQ ACHS [facility]; Protocol Last Admin: 04/29/19 06:00 Dose: 4 units Levothyroxine Sodium (Synthroid -) 50 mcg PO DAILY@0700 [facility] Last Admin: 04/29/19 06:00 Dose: 50 mcg Losartan Potassium (Cozaar -) 50 mg PO DAILY [facility] Last Admin: 04/29/19 09:54 Dose: 50 mg Methylprednisolone Sodium Succinate (Solu-Medrol -) 40 mg IVPUSH BID [facility] Last Admin: 04/29/19 09:54 Dose: 40 mg Pantoprazole Sodium (Protonix -) 40 mg PO DAILY [facility] Last Admin: 04/29/19 09:54 Dose: 40 mg Rosuvastatin Calcium (Crestor -) 10 mg PO HS [facility] Last Admin: 04/28/19 21:15 Dose: 10 mg Tiotropium [place] (Spiriva Respimat) 2 puff IH DAILY [facility] Last Admin: 04/29/19 09:57 Dose: 2 puff Gen: NAD at rest Heart: RRR Lung: less scattered rhonchi, No wheezes, better air entry Abd: soft, nontender Ext: no edema Laboratory Results - last 24 hr 04/28/19 04/28/19 04/28/19 11:45 16:51 21:06 POC Glucometer 189 188 186 04/29/19 04/29/19 05:57 11:34 POC Glucometer 202 122 A/P Slowly Resolving Acute COPD Exacerbation h/o Lung Ca s/p lobectomy HTN Hypercholesterolemia Hypothyroidism Post infectious cough Will change to Prednisone 40mg daily Cough suppressants Patient has home O2 already VTE prophylaxis (?) STR There is no Pulmonary contraindication for D/C Planing: May take several weeks for cough to dissipate On D/C: Prednisone taper over 10 days LAMA / LABA / ICS Albuterol PRN Mucinex BID Dr Andres Problem List - Problems (1) Lung nodule < 6cm on CT Code(s): R91.1 - SOLITARY PULMONARY NODULE (2) Cough Code(s): R05 - COUGH (3) Hypothyroidism Code(s): E03.9 - HYPOTHYROIDISM, UNSPECIFIED (4) SOB (shortness of breath) Code(s): R06.02 - SHORTNESS OF BREATH (5) CAD (coronary artery disease) Code(s): I25.10 - ATHSCL HEART DISEASE OF [place] CORONARY ARTERY W/O ANG PCTRS (6) COPD exacerbation Code(s): J44.1 - CHRONIC OBSTRUCTIVE PULMONARY DISEASE W (ACUTE) EXACERBATION (7) Diabetes Code(s): E11.9 - TYPE 2 DIABETES MELLITUS WITHOUT COMPLICATIONS (8) H/O: lung cancer Code(s): Z85.118 - PERSONAL HISTORY OF MALIGNANT NEOPLASM OF BRONCHUS AND LUNG (9) HLD (hyperlipidemia) Code(s): E78.5 - HYPERLIPIDEMIA, UNSPECIFIED Qualifiers: Hyperlipidemia type: pure hypercholesterolemia Qualified Code(s): E78.00 - Pure hypercholesterolemia, unspecified; E78.0 - Pure hypercholesterolemia (10) HTN (hypertension) Code(s): I10 - ESSENTIAL (PRIMARY) HYPERTENSION Qualifiers: Hypertension type: essential hypertension Qualified Code(s): I10 - Essential (primary) hypertension
[2019-04-29] MEDS: predniSONE 20 MG TABLET (UD) PO SCH (14:34)
[2019-04-29] MEDS ORDERED: INSULIN (NOVOLOG) ASPART 100 UNITS/ML 10ML VIAL ONE ×2 (17:13→20:55)
[2019-04-29] MEDS: guaiFENesin/CODEINE 10 ML UNIT-DOSE CUPS PO SCH (21:08)
[2019-04-29] MEDS: ROSUVASTATIN CA 10 MG TABLET (FP) PO SCH (21:08)
--- NOTE | 2019-04-29 23:09 | PN ---
Progress Note, Physician - Current Medication List Current Medications: Active Medications Acetylcysteine (Mucomyst 20 Oral / Inh Use Only*) 200 mg NEB RQID [facility] Last Admin: 04/29/19 20:26 Dose: 200 mg Albuterol Sulfate (Ventolin 0.083% Nebulizer Soln -) 1 amp NEB Q6H PRN PRN Reason: SHORT OF BREATH/WHEEZING Last Admin: 04/26/19 01:05 Dose: 1 amp Albuterol Sulfate (Ventolin 0.083% Nebulizer Soln -) 1 amp NEB RQID [facility] Last Admin: 04/29/19 20:27 Dose: 1 amp Aspirin (Asa -) 81 mg PO DAILY [facility] Last Admin: 04/29/19 09:54 Dose: 81 mg Budesonide/Formoterol Fumarate (Symbicort 160/4.5mcg -) 2 puff IH BID [facility] Last Admin: 04/29/19 21:09 Dose: 2 puff Guaifenesin (Mucinex -) 600 mg PO BID [facility] Last Admin: 04/29/19 21:08 Dose: 600 mg Guaifenesin/Codeine Phosphate (Robitussin Ac -) 10 ml PO HS [facility] Last Admin: 04/29/19 21:08 Dose: 10 ml Hydrochlorothiazide (Hctz -) 12.5 mg PO DAILY [facility] Last Admin: 04/29/19 09:54 Dose: 12.5 mg Insulin Aspart (Novolog Vial Sliding Scale -) 1 vial SQ [facility]; Protocol Last Admin: 04/29/19 21:08 Dose: 2 units Levothyroxine Sodium (Synthroid -) 50 mcg PO DAILY@0700 [facility] Last Admin: 04/29/19 06:00 Dose: 50 mcg Losartan Potassium (Cozaar -) 50 mg PO DAILY [facility] Last Admin: 04/29/19 09:54 Dose: 50 mg Pantoprazole Sodium (Protonix -) 40 mg PO DAILY [facility] Last Admin: 04/29/19 09:54 Dose: 40 mg Prednisone (Deltasone -) 40 mg PO DAILY [facility] Last Admin: 04/29/19 14:34 Dose: 40 mg Rosuvastatin Calcium (Crestor -) 10 mg PO HS [facility] Last Admin: 04/29/19 21:08 Dose: 10 mg Tiotropium [place] (Spiriva Respimat) 2 puff IH DAILY [facility] Last Admin: 04/29/19 09:57 Dose: 2 puff - Objective Vital Signs: Vital Signs Temperature 98.5 F 04/29/19 22:00 Pulse Rate 102 H 04/29/19 22:00 Respiratory Rate 20 04/29/19 22:00 Blood Pressure 100/57 L 04/29/19 22:00 O2 Sat by Pulse Oximetry (%) 98 04/29/19 21:00 Labs: CBC, BMP 04/27/19 07:15 04/27/19 07:15 Problem List - Problems (1) COPD exacerbation Code(s): J44.1 - CHRONIC OBSTRUCTIVE PULMONARY DISEASE W (ACUTE) EXACERBATION (2) HTN (hypertension) Code(s): I10 - ESSENTIAL (PRIMARY) HYPERTENSION Qualifiers: Hypertension type: essential hypertension Qualified Code(s): I10 - Essential (primary) hypertension (3) Hypothyroidism Code(s): E03.9 - HYPOTHYROIDISM, UNSPECIFIED (4) Diabetes Code(s): E11.9 - TYPE 2 DIABETES MELLITUS WITHOUT COMPLICATIONS (5) H/O: lung cancer Code(s): Z85.118 - PERSONAL HISTORY OF MALIGNANT NEOPLASM OF BRONCHUS AND LUNG (6) HLD (hyperlipidemia) Code(s): E78.5 - HYPERLIPIDEMIA, UNSPECIFIED Qualifiers: Hyperlipidemia type: pure hypercholesterolemia Qualified Code(s): E78.00 - Pure hypercholesterolemia, unspecified; E78.0 - Pure hypercholesterolemia (7) CAD (coronary artery disease) Code(s): I25.10 - ATHSCL HEART DISEASE OF [place] CORONARY ARTERY W/O ANG PCTRS
[2019-04-30] MEDS: ALBUTEROL SO4 0.083% IH SOL 2.5 MG/3 ML VIAL.NEB. NEB PRN (04:20)
[2019-04-30] MEDS: INSULIN SLIDING SCALE (NOVOLOG) 1 VIAL SQ SCH ×2 (06:08→11:36)
[2019-04-30] MEDS: LEVOTHYROXINE NA 50 MCG TABLET (FP) PO SCH (06:08)
[2019-04-30] MEDS: ALBUTEROL SO4 0.083% IH SOL 2.5 MG/3 ML VIAL.NEB. NEB SCH ×2 (07:35→11:21)
[2019-04-30] MEDS: ACETYLCYSTEINE 20% 200MG/ML 4 ML VIAL *FOR ORAL / INH USE ONLY NEB SCH ×2 (07:35→11:21)
[2019-04-30] MEDS: PANTOPRAZOLE 40 MG TABLET (FP) PO SCH (09:24)
[2019-04-30] MEDS: predniSONE 20 MG TABLET (UD) PO SCH (09:24)
[2019-04-30] MEDS: guaiFENesin 600 MG TABLET.ER (FP) PO SCH (09:24)
[2019-04-30] MEDS: LOSARTAN POTASSIUM 50 MG TABLET (FP) PO SCH (09:24)
[2019-04-30] MEDS: ASPIRIN 81 MG CHEWABLE TABLETS PO SCH (09:24)
[2019-04-30] MEDS: HYDROCHLOROTHIAZIDE 12.5 MG CAPSULE (FP) PO SCH (09:24)
[2019-04-30] MEDS: TIOTROPIUM BROMIDE 2.5 MCG (SPIRIVA) RESPIMAT INHALER IH SCH (09:26)
[2019-04-30] MEDS: BUDESONIDE/FORMETEROL FUMARATE 160/4.5 mcg INHALER IH SCH (09:26)
--- NOTE | 2019-04-30 11:57 | PN ---
Progress Note (short form) - Note Progress Note: OOB to chair in NAD on RA. States overall breathing is better but still some cough at night. Intake & Output 04/27/19 04/28/19 04/29/19 04/30/19 23:59 23:59 23:59 23:59 Intake Total 950 420 600 250 Balance 950 420 600 250 Weight 124 lb 122 lb 5 oz 125 lb 8 oz 120 lb 9.6 oz Last Vital Signs Temp Pulse Resp BP Pulse Ox 98.4 F 98 H 18 108/62 98 04/30/19 05:00 04/30/19 05:00 04/30/19 05:00 04/30/19 05:00 04/29/19 21:00 Active Medications Acetylcysteine (Mucomyst 20 Oral / Inh Use Only*) 200 mg NEB RQID [facility] Last Admin: 04/30/19 11:21 Dose: 200 mg Albuterol Sulfate (Ventolin 0.083% Nebulizer Soln -) 1 amp NEB RQID [facility] Last Admin: 04/30/19 11:21 Dose: 1 amp Aspirin (Asa -) 81 mg PO DAILY [facility] Last Admin: 04/30/19 09:24 Dose: 81 mg Budesonide/Formoterol Fumarate (Symbicort 160/4.5mcg -) 2 puff IH BID [facility] Last Admin: 04/30/19 09:26 Dose: 2 puff Guaifenesin (Mucinex -) 600 mg PO BID [facility] Last Admin: 04/30/19 09:24 Dose: 600 mg Guaifenesin/Codeine Phosphate (Robitussin Ac -) 10 ml PO HS [facility] Last Admin: 04/29/19 21:08 Dose: 10 ml Hydrochlorothiazide (Hctz -) 12.5 mg PO DAILY [facility] Last Admin: 04/30/19 09:24 Dose: 12.5 mg Insulin Aspart (Novolog Vial Sliding Scale -) 1 vial SQ ACHS [facility]; Protocol Last Admin: 04/30/19 11:36 Dose: Not Given Levothyroxine Sodium (Synthroid -) 50 mcg PO DAILY@0700 [facility] Last Admin: 04/30/19 06:08 Dose: 50 mcg Losartan Potassium (Cozaar -) 50 mg PO DAILY [facility] Last Admin: 04/30/19 09:24 Dose: 50 mg Pantoprazole Sodium (Protonix -) 40 mg PO DAILY [facility] Last Admin: 04/30/19 09:24 Dose: 40 mg Prednisone (Deltasone -) 40 mg PO DAILY [facility] Last Admin: 04/30/19 09:24 Dose: 40 mg Rosuvastatin Calcium (Crestor -) 10 mg PO HS [facility] Last Admin: 04/29/19 21:08 Dose: 10 mg Tiotropium [place] (Spiriva Respimat) 2 puff IH DAILY [facility] Last Admin: 04/30/19 09:26 Dose: 2 puff Gen: NAD at rest Heart: RRR Lung: less scattered rhonchi, No wheezes, better air entry Abd: soft, nontender Ext: no edema Laboratory Results - last 24 hr 04/29/19 04/29/19 04/30/19 17:10 21:07 05:44 POC Glucometer 170 164 163 04/30/19 11:31 POC Glucometer 141 A/P Slowly Resolving Acute COPD Exacerbation h/o Lung Ca s/p lobectomy HTN Hypercholesterolemia Hypothyroidism Post infectious cough Will change to Prednisone 40mg daily Cough suppressants Patient has home O2 already VTE prophylaxis There is no Pulmonary contraindication for D/C home: May take several weeks for cough to dissipate On D/C: Prednisone taper over 10 days LAMA / LABA / ICS Albuterol PRN Mucinex BID Dr Andres Problem List - Problems (1) Lung nodule < 6cm on CT Code(s): R91.1 - SOLITARY PULMONARY NODULE (2) Cough Code(s): R05 - COUGH (3) Hypothyroidism Code(s): E03.9 - HYPOTHYROIDISM, UNSPECIFIED (4) SOB (shortness of breath) Code(s): R06.02 - SHORTNESS OF BREATH (5) CAD (coronary artery disease) Code(s): I25.10 - ATHSCL HEART DISEASE OF [place] CORONARY ARTERY W/O ANG PCTRS (6) COPD exacerbation Code(s): J44.1 - CHRONIC OBSTRUCTIVE PULMONARY DISEASE W (ACUTE) EXACERBATION (7) Diabetes Code(s): E11.9 - TYPE 2 DIABETES MELLITUS WITHOUT COMPLICATIONS (8) H/O: lung cancer Code(s): Z85.118 - PERSONAL HISTORY OF MALIGNANT NEOPLASM OF BRONCHUS AND LUNG (9) HLD (hyperlipidemia) Code(s): E78.5 - HYPERLIPIDEMIA, UNSPECIFIED Qualifiers: Hyperlipidemia type: pure hypercholesterolemia Qualified Code(s): E78.00 - Pure hypercholesterolemia, unspecified; E78.0 - Pure hypercholesterolemia (10) HTN (hypertension) Code(s): I10 - ESSENTIAL (PRIMARY) HYPERTENSION Qualifiers: Hypertension type: essential hypertension Qualified Code(s): I10 - Essential (primary) hypertension
[2019-04-30 14:36] VITALS: BP 142/82; PULSE 86; TEMP 98.5
== END 2019-04-30 15:33 | disposition home health service (06) | DRG 191 ==
LOC: JER 05:08 → JERBED 09:47 → J6S 11:55
PROVIDERS: ADMIT Internal Medicine; ATTEND Internal Medicine
DX: J44.1 Chronic obstructive pulmonary disease with (acute) exacerbation (principal); I50.32 Chronic diastolic (congestive) heart failure; E03.9 Hypothyroidism, unspecified; R91.1 Solitary pulmonary nodule; I25.10 Atherosclerotic heart disease of native coronary artery without angina pectoris; E11.9 Type 2 diabetes mellitus without complications; I11.0 Hypertensive heart disease with heart failure; E78.5 Hyperlipidemia, unspecified
CPT/HCPCS: 36415; 71045-TC-FY; 71046-TC-FY; 71275-TC; 80053; 82550; 82553; 82962; 83735; 83880; 84484; 85025; 93005; 93010; 93306-TC; 93970-TC; 94640; 97116-GP; 97161-GP; 99283-25; J0131; J7030

== ENCOUNTER 2019-05-22 15:51 | Inpatient (IN) | payer OTHER ==
[2019-05-22] MEDS ORDERED: ONDANSETRON 4 MG/2 ML VIAL IVPUSH ONE (15:58)
--- NOTE | 2019-05-22 16:01 | PDOC ---
Rapid Medical Evaluation Chief Complaint: Pain Time Seen by Provider: 05/22/19 15:55 Medical Evaluation: Allergies Allergy/AdvReac Type Severity Reaction Status Date / Time No Known Allergies Allergy Verified 04/13/19 05:10 05/22/19 15:59 Pt c/o: lowe abd pain since recent discharge from [facility]. Now with nausea and 2 episodes of vomiting. No other complaints. Sent by Dr chamberlain to r/o colitis/ diverticulitis/ Pt on brief exam: vss (bp 90/50), mild lower abd tenderness Pt ordered for: labs, urine and ct pt to proceed to the ED Discharge Disposition - Diagnosis MIRANDA (acute kidney injury), Elevated lipase, Total bilirubin, elevated Abdominal pain Qualifiers: Abdominal location: epigastric Qualified Code(s): R10.13 - Epigastric pain - Discharge Dispostion Condition at time of disposition: Stable - Referrals Referrals: Brian Pop MD [Primary Care Provider] - - Patient Instructions - Post Discharge Activity
[2019-05-22] MEDS ORDERED: ACETAMINOPHEN 1000 MG/100 ML VIAL (NON FORMULARY) IVPB ONE (16:39)
[2019-05-22] MEDS ORDERED: SODIUM CHLORIDE 500 ML IV STA (16:39)
[2019-05-22] MEDS ORDERED: FAMOTIDINE 20 MG/50 ML IVPB 20 MG/50 ML MG IVPB ONE ×2 (16:39→17:02)
--- NOTE | 2019-05-22 16:41 | PDOC ---
History of Present Illness - General Chief Complaint: Pain Stated Complaint: SENT BY PCP/ LOWER ABD PAIN Time Seen by Provider: 05/22/19 15:55 History Source: Patient Exam Limitations: No Limitations - History of Present Illness Initial Comments: Esther Banks is an 83 yo F w a pmh of lung CA (s/p thoracotomy with LLL lobectomy) , COPD (on 3 LPM home O2 prn), frequent bronchitis/PNA, CAD, HTN, HLD, GI bleed , TIA, and cholecystectomy who presents to the ER via private auto sent in by her PCP - Dr. Benton - for increased abdominal pain for the last 2 weeks. The patient states she has had lower abdominal pain associated with constant nausea and occasional episodes of white NBNB emesis. Her last vomiting episode was yesterday. She denies any dysuria, frequency, urgency, or abnormal vaginal discharge or bleeding. She also denies her lower abdominal pain radiating to the groin or back. She denies recent fevers, chills, infections. She denies any recent chest pain, SOB, difficulty breathing, or back pain. PCP: Dr. Benton Pulm: Dr. Giraldo Cardio: Dr. Dillon PSH: Cataract Removal, Thoracotomy (left lower lobectomy) Social Hx: Denies smoking, drinking, or other substance usage. Independent in her ADL Allergies: NKA, NKDA Past History - Past Medical History Allergies/Adverse Reactions: Allergies Allergy/AdvReac Type Severity Reaction Status Date / Time aspirin Allergy Verified 05/22/19 19:00 Home Medications: Ambulatory Orders Levothyroxine [Synthroid -] 50 mcg PO DAILY@0700 #30 tablet 01/12/16 Losartan Potassium [Cozaar -] 50 mg PO DAILY #30 tablet 01/12/16 Rosuvastatin [Crestor -] 10 mg PO HS #30 tablet 01/12/16 Ranitidine HCl [Zantac] 150 mg PO PRN PRN 09/01/16 Tiotropium [place] [Spiriva] 1 inh PO PRN PRN 09/01/16 Hydrochlorothiazide [Hctz -] 12.5 mg PO DAILY #30 cap 04/30/19 Tiotropium [place] [Spiriva Respimat] 2 puff IH DAILY #1 inhaler 04/30/19 Albuterol 0.083% Nebulizer [place] [Ventolin 0.083% Nebulizer Soln -] 1 amp NEB RQID PRN 05/22/19 Budesonide/Formeterol Fumarate [SYMBICORT 160/4.5mcg -] 1 inh PO PRN PRN Asthma: Yes Cancer: Yes (lung ca) CVA: Yes (TIA) COPD: Yes ("LEFT PARTIAL LUNG REMOVAL, PNA, bronchitis, CAD) Diabetes: Yes HTN: Yes Hypercholesterolemia: Yes Thyroid Disease: Yes - Surgical History Cholecystectomy: Yes Lung Surgery: Yes (LEFT-PARTIAL REMOVAL) - Immunization History Td Vaccination: Yes TDAP Vaccination: Yes Immunization Up to Date: Yes - Suicide/Smoking/Psychosocial Hx Smoking History: Never smoked Have you smoked in the past 12 months: No Information on smoking cessation initiated: No Hx Alcohol Use: No Drug/Substance Use Hx: No Substance Use Type: None Hx Substance Use Treatment: No Review of Systems - Review of Systems Able to Perform ROS?: Yes Comments:: CONSTITUTIONAL: Absent: fever, no chills, no fatigue EYES: Absent: visual changes ENT: Absent: ear pain, no sore throat CARDIOVASCULAR: Absent: chest pain, no palpitations RESPIRATORY: Absent: cough, no SOB GI: Present: Abdominal pain, nausea, vomiting. Absent: no constipation, no diarrhea GENITOURINARY: Absent: dysuria, no frequency, no hematuria MUSKULOSKELETAL: Absent: back pain, no arthralgia, no myalgia SKIN: Absent: rash NEURO: Absent: headache *Physical Exam - Vital Signs Last Vital Signs Temp Pulse Resp BP Pulse Ox 97.9 F 97 H 18 94/51 L 98 05/22/19 15:57 05/22/19 15:57 05/22/19 15:57 05/22/19 15:57 05/22/19 15:57 - Physical Exam Comments: GENERAL: Well-appearing, well-nourished. No apparent distress. HEENT: Normocephalic, atraumatic. PERRL, EOM intact. CARDIOVASCULAR: Normal S1, S2. Regular rate and rhythm. PULMONARY: No evidence of respiratory distress. Lungs clear to auscultation bilaterally. No wheezing, rales or rhonchi. ABDOMEN: There is significant suprapubic and RLQ ttp. Otherwise the abdomen is soft, non- distended, and has normal bowel sounds. There is no rebound or guarding. EXTREMITIES: Normal ROM in all four extremities. No gross deformities. SKIN: Warm, dry. No rash NEUROLOGICAL: No focal neurological deficits. Heart Score/ECG Review - ECG Intrepretation Rhythm: Regular Rhythm - Slaughters Slaughters: Normal - P and DE Prominent R with upright T in V1 (true posterior DC): No Delta Wave(s) Present: No WPW: No - ST and T Non Specific ST-T Wave changes: Yes Flattened T Waves: Yes - ECG Impressions Normal ECG: No Non-specific ST Elevation: No ED Treatment Course - LABORATORY CBC & Chemistry Diagram: 05/25/19 06:50 05/25/19 06:50 - RADIOLOGY Radiograph Interpretation: US: Right upper quadrant abdominal ultrasound Clinical information: evaluate for pathology Status post interval cholecystectomy un comparison to a prior ultrasound study of 12/15/2015. The common bile duct diameter appears unremarkable measuring 0.6 cm. No obvious interval change is seen in this regard in comparison to the prior ultrasound study. There is no gross evidence of choledocholithiasis within the limitations of transabdominal sonography. The liver, right kidney and partially visualized pancreas demonstrate no sonographic abnormality. Subcentimeter right renal cortical cyst. No free intraperitoneal fluid is noted. Impression: Status post cholecystectomy. No definite biliary tract dilatation is identified. CTAP: Abdomen and pelvis CT without contrast Clinical information evaluate for appendicitis, diverticulitis, colitis Multiplanar imaging was performed. No intravenous or enteric contrast was administered. No prior abdomen/pelvic CT studies are available at this facility for direct comparison. There is no evidence of pneumoperitoneum, free intraperitoneal fluid, abscess or bowel obstruction. The appendix appears unremarkable. There is no definite CT evidence of acute colitis. Mild to moderate colitis may not be demonstrable on CT. Subtle minimal to mild pericolonic soft tissue stranding is noted adjacent to the upper and lower thirds of the sigmoid colon which could be on the basis of early uncomplicated acute diverticulitis. The upper third of the sigmoid colon demonstrates nonspecific wall thickening posteriorly. Numerous diverticula are seen along the length of the colon more prominent within the sigmoid region. No gross noncontrast small bowel pathology is identified. Status post cholecystectomy. The common bile duct appears mildly prominent measuring 0.9 cm without obvious interval change in comparison to a chest CT study of 04/13/2019 which partially imaged the upper abdomen. The liver, spleen, pancreas, adrenal glands and kidneys demonstrate no discrete noncontrast pathology. There is no aortic aneurysm. No definite lymphadenopathy is identified. 2.3 cm diverticulum along the second portion of duodenal sweep medially. In comparison to the 04/13/[address] study interval development of partial right middle lobe atelectasis is noted. Impression: Minimal to mild pericolonic soft tissue stranding is noted along the upper and lower thirds of the sigmoid colon possibly on the basis of early uncomplicated acute diverticulitis. There is nonspecific focal wall thickening along the upper third of the sigmoid colon posteriorly. Correlation with colonoscopy or barium enema is suggested when the patient's clinical condition permits. Status post cholecystectomy. In comparison to a chest CT exam of 04/13/2019 interval development of partial right middle lobe atelectasis is seen. Medical Decision Making - Medical Decision Making Esther Banks is an 83 yo F w a pmh of lung CA (s/p thoracotomy with LLL lobectomy) , COPD (on 3 LPM home O2 prn), frequent bronchitis/PNA, CAD, HTN, HLD, GI bleed , TIA, and cholecystectomy who presents to the ER via private auto sent in by her PCP - Dr. Benton - for increased abdominal pain for the last 2 weeks. The patient states she has had lower abdominal pain associated with constant nausea and occasional episodes of white NBNB emesis. Her last vomiting episode was yesterday. She denies any dysuria, frequency, urgency, or abnormal vaginal discharge or bleeding. She also denies her lower abdominal pain radiating to the groin or back. She denies recent fevers, chills, infections. She denies any recent chest pain, SOB, difficulty breathing, or back pain. Vital Signs Temp Pulse Resp BP Pulse Ox 97.9 F 97 H 18 94/51 L 98 05/22/19 15:57 05/22/19 15:57 05/22/19 15:57 05/22/19 15:57 05/22/19 15:57 DDx IBNLT: Diverticulitis, UTI/Pylo, renal colic, colitis, electrolyte/ metabolic disturbance, metastasis, ovarian/gynecological pathology, appendicitis. Plan: Labs, Urine, EKG, CTAP, analgesia, IV hydration, re-assess. EKG: Sinus rate of 99, moderate voltage criteria for LVH from lead aVL. ST & T wave abnormality - inverted T's in 3, V1,V2,V3,V4,V5 abd flattened T in 2 aVF and V6 all of which is unchanged since a prior EKF taken on 04/13/19 Labs: Leukocytosis, hypokalemic, MIRANDA, elevated T-bili, elevated Lipase - Repleting potassium orally - Ordering lipid panel for concern for pancreatitis Urine: - Will need a straight cath to obtain CTAP: Impression: Minimal to mild pericolonic soft tissue stranding is noted along the upper and lower thirds of the sigmoid colon possibly on the basis of early uncomplicated acute diverticulitis. There is nonspecific focal wall thickening along the upper third of the sigmoid colon posteriorly. Correlation with colonoscopy or barium enema is suggested when the patient's clinical condition permits. Status post cholecystectomy. In comparison to a chest CT exam of 04/13/2019 interval development of partial right middle lobe atelectasis is seen. RUQ - US: Impression: Status post cholecystectomy. No definite biliary tract dilatation is identified. Disposition: Admit to hospital for lab abnormalities including MIRANDA, elevated lipase, elevated total bili. Signing out patient to night resident to complete ED course and admit the patient to the hospital. - Sign out pending US, CT, straight cath for urine. *DC/Admit/Observation/Transfer Diagnosis at time of Disposition: MIRANDA (acute kidney injury), Elevated lipase, Total bilirubin, elevated, Diverticulitis Abdominal pain Qualifiers: Abdominal location: epigastric Qualified Code(s): R10.13 - Epigastric pain - Discharge Dispostion Condition at time of disposition: Fair Decision to Admit order: Yes - Referrals - Patient Instructions - Post Discharge Activity
[2019-05-22] MEDS ORDERED: ACETAMINOPHEN INJECTION 100 ML IVPB ONE (17:02)
[2019-05-22] MEDS ORDERED: ONDANSETRON 4 MG/2 ML VIAL ONE (17:02)
--- NOTE | 2019-05-22 17:16 | PDOC ---
Documentation entered by Justin Zee SCRIBE, acting as scribe for Shruthi Bateman DO. Shruthi Bateman DO: This documentation has been prepared by the Yayo leon Joel, SCRIBE, under my direction and personally reviewed by me in its entirety. I confirm that the documentation accurately reflects all work, treatment, procedures, and medical decision making performed by me. Attending Attestation - Resident Resident Name: Ruiz Ramey - ED Attending Attestation I have performed the following: I have examined & evaluated the patient, The case was reviewed & discussed with the resident, I agree w/resident's findings & plan, Exceptions are as noted - HPI HPI: 05/22/19 16:54 The patient is an 83 year old female with a significant PMH of lung CA (s/p thoracotomy, LLL lobectomy), COPD (3 L home O2), PNA, CAD, HTN, TIA, and hyperlipidemia who presents to the emergency department after being sent in by Dr. Benton for evaluation of worsening lower abdominal pain and NBNB vomiting for the past 2 weeks. She describes her vomit as whitish and clear with associated nausea. She denies vaginal discharge or bleeding. She denies fevers or chills. Denies diarrhea and constipation. Denies chest pain, shortness of breath, headache and dizziness. Denies dysuria, frequency, urgency and hematuria. Allergies: NKA Past surgical history: Thoracotomy (LLL lobectomy), Cataracts. Social history: No reported cigarette, alcohol, or drug use. - Physicial Exam PE: 05/22/19 17:04 GENERAL: Awake, alert, and fully oriented, in no acute distress. HEAD: No signs of trauma EYES: PERRLA, EOMI, sclera anicteric, conjunctiva clear ENT: (+) Dry mucosa. Auricles normal inspection, hearing grossly normal, nares patent, oropharynx clear without exudates. NECK: Nontender, no stepoffs, Normal ROM, supple, no lymphadenopathy, JVD, or masses LUNGS: Breath sounds equal, clear to auscultation bilaterally. No wheezes, and no crackles HEART: Regular rate and rhythm, normal S1 and S2, no murmurs, rubs or gallops ABDOMEN: (+) Palpable bladder up to umbilicus. (+) Tenderness across the right pelvic and right groin areas across bladder. Soft, normoactive bowel sounds. No guarding, no rebound. No masses. No CVA tenderness. EXTREMITIES: Normal range of motion, no edema. No clubbing or cyanosis. No cords , erythema, or tenderness NEUROLOGICAL: Cranial nerves II through XII intact. 5/5 strength and sensation in all extremities, Normal speech, normal gait, normal cerebellar function SKIN: Warm, Dry, normal turgor, no rashes or lesions noted. - Medical Decision Making 05/22/19 17:14 I, Dr. Shruthi Bateman, DO, attest that this document has been prepared under my direction and personally reviewed by me in its entirety. I further attest, that it accurately reflects all work, treatment, procedures and medical decision -making performed by me. 05/22/19 17:14 a/p: 83yo female with hx of COPD with 2 weeks of worsening lower abd pain -states straining to start the flow of urine -denies dysuria, but has hesitancy -has to push hard to pass her urine -pt with ttp suprapubic and distended bladder -concern for uti and retention -will perform bedside ultrasound of renal/bladder -will send labs, ua, ucx -will monitor and reassess -if urinary retention will place sullivan catheter. -pt states not eating or drinking because she has had difficulty urinating x 2 weeks, decreased po intake since leaving the hospital 3 weeks ago -will give gently ivf hydration given hx of diastolic hf 05/22/19 19:28 pt with miranda pt with elevated lipase and abd pain ultrasound -pt is s/p daja ct pending ua pending 05/22/19 20:02 no uti on ua pt to ct 05/22/19 22:[address], will start abx case discussed with Dr. Benton who is being covered by [employer] pt with miranda, diverticulitis, pancreatitis 05/22/19 23:13 case discussed with [facility] Tomeka Vera who accepts pt to service *DC/Admit/Observation/Transfer Diagnosis at time of Disposition: MIRANDA (acute kidney injury), Elevated lipase, Total bilirubin, elevated, Diverticulitis Abdominal pain Qualifiers: Abdominal location: epigastric Qualified Code(s): R10.13 - Epigastric pain - Discharge Dispostion Condition at time of disposition: Fair Decision to Admit order: Yes - Referrals Referrals: Brian Pop MD [Primary Care Provider] - - Patient Instructions - Post Discharge Activity Heart Score/ECG Review - ECG Intrepretation Comment:: 05/22/19 17:20 sinus at 99, lvh, t wave ivnersions v2-5 and III which are unchanged from prior
[2019-05-22 17:48] LABS: INR 1.08 (0.83-1.09); PROTHROMBIN TIME (PATIENT) 12.7 SEC (9.7-13.0)
[2019-05-22 18:00] LABS: ALBUMIN 2.5 g/dl (3.4-5.0); BILIRUBIN,TOTAL 1.4 mg/dL (0.2-1); BLOOD UREA NITROGEN 25.8 mg/dL (7-18); CALCIUM 8.4 mg/dL (8.5-10.1); CREATININE 1.9 mg/dL (0.55-1.3); MAGNESIUM 2.2 mg/dL (1.8-2.4); PHOSPHOROUS 3.3 mg/dL (2.5-4.9); POTASSIUM 3.4 mmol/L (3.5-5.1); TOT PROT 5.6 g/dl (6.4-8.2)
[2019-05-22 18:10] LABS: BASO % 0.4 % (0-2.0); HEMATOCRIT 32.6 % (32.4-45.2); HEMOGLOBIN 10.8 GM/dL (10.7-15.3); LYMPH % 10.7 % (8-40); MCH 30.1 pg (25.7-33.7); MCHC 33.1 g/dl (32.0-36.0); MEAN CELL VOLUME 91.1 fl (80-96); MEAN PLT VOLUME 8.7 fl (7.5-11.1); NEUT % 83.9 % (42.8-82.8); PLATELET COUNT 252 K/MM3 (134-434); RBC 3.57 M/mm3 (3.60-5.2); RDW 14.3 % (11.6-15.6); WHITE BLOOD COUNT 13.8 K/mm3 (4.0-10.0)
[2019-05-22] MEDS ORDERED: SODIUM CHLORIDE 1,000 ML IV STA (18:35)
[2019-05-22] MEDS ORDERED: POTASSIUM CHLORIDE ORAL LIQUID 20 MEQ/15 ML PO ONE (18:55)
--- NOTE | 2019-05-22 19:00 | PDOC ---
*Physical Exam - Vital Signs Last Vital Signs Temp Pulse Resp BP Pulse Ox 98.0 F 87 19 92/51 L 100 05/22/19 18:42 05/22/19 18:42 05/22/19 18:42 05/22/19 18:42 05/22/19 18:42 ED Treatment Course - LABORATORY CBC & Chemistry Diagram: 05/22/19 16:59 05/22/19 16:59 - ADDITIONAL ORDERS Additional order review: Laboratory Results 05/22/19 05/22/19 05/22/19 17:13 16:59 16:59 PT with INR 12.70 INR 1.08 Sodium Potassium Chloride Carbon Dioxide Anion Gap BUN Creatinine Est GFR (CKD-EPI)AfAm Est GFR (CKD-EPI)NonAf Random Glucose Lactic Acid 1.0 Calcium Phosphorus Magnesium Total Bilirubin AST ALT Alkaline Phosphatase Total Protein Albumin Triglycerides Cholesterol Total LDL Cholesterol HDL Cholesterol Lipase Blood Type A POSITIVE Antibody Screen Negative 05/22/19 16:59 PT with INR INR Sodium 136 Potassium 3.4 L Chloride 99 Carbon Dioxide 30 Anion Gap 7 L BUN 25.8 H Creatinine 1.9 H Est GFR (CKD-EPI)AfAm 28.16 Est GFR (CKD-EPI)NonAf 24.30 Random Glucose 105 Lactic Acid Calcium 8.4 L Phosphorus 3.3 Magnesium 2.2 Total Bilirubin 1.4 H AST 14 L ALT 19 Alkaline Phosphatase 80 Total Protein 5.6 L Albumin 2.5 L Triglycerides 139 Cholesterol 161 Total LDL Cholesterol 106 H HDL Cholesterol 40 Lipase 644 H Blood Type Antibody Screen 05/22/19 16:59 RBC 3.57 L MCV 91.1 MCHC 33.1 RDW 14.3 MPV 8.7 D Neutrophils % 83.9 H Lymphocytes % 10.7 D Monocytes % 5.0 Eosinophils % 0.0 Basophils % 0.4 - Medications Given in the ED: ED Medications Discontinued Medications Generic Name Dose Route Start Last Admin Trade Name Freq PRN Reason Stop Dose Admin Acetaminophen 1,000 mg 05/22/19 16:39 05/22/19 17:15 Ofirmev Injection - IVPB 05/22/19 16:40 1,000 mg ONCE ONE Administration Famotidine/Sodium Chloride 20 mg in 50 mls @ 100 mls/hr 05/22/19 16:39 17:15 Pepcid 20 Mg Premixed Ivpb - IVPB 05/22/19 17:08 100 mls/hr ONCE ONE Administration Sodium Chloride 500 mls @ 500 mls/hr 05/22/19 16:39 05/22/19 17:14 Normal Saline - IV 05/22/19 17:38 500 mls/hr ASDIR STA Administration Ondansetron HCl 4 mg 05/22/19 15:58 05/22/19 17:14 Zofran Injection IVPUSH 05/22/19 15:59 4 mg ONCE ONE Administration Medical Decision Making - Medical Decision Making I have assumed care of the patient from Dr. Ramey, who has discussed the clinical presentation, work-up, and ED course thus far. Esther Banks is an 83 yo F w a pmh of lung CA (s/p thoracotomy with LLL lobectomy) , COPD (on 3 LPM home O2 prn), frequent bronchitis/PNA, CAD, HTN, HLD, GI bleed , TIA, and cholecystectomy who presents to the ER via private auto sent in by her PCP - Dr. Benton - for increased abdominal pain for the last [address], US, UA (straight cath) Plan for admission Pt receiving IVF Tbili and Lipase elevated -Triglycerides wnl Leukocytosis to 13 05/22/19 19:00 US w/ findings of s/p daja and no acute biliary tract dilation Pending CT 05/22/19 20:02 CT pending 05/22/19 21:29 W/o LDH, Chago's Criteria is 1 05/22/19 22:04 Will treat for diverticulitis based on CT, read pending -Zosyn 4.5mg IV once -LR @ 42cc/hr (s/p 1.5 L IVF) Plan for admission for diveriticulitis, pancreatitis, and MIRANDA Chetan on vacation, reported [employer] as covering team, will microblog 05/22/19 22:26 *DC/Admit/Observation/Transfer Diagnosis at time of Disposition: MIRANDA (acute kidney injury), Elevated lipase, Total bilirubin, elevated Abdominal pain Qualifiers: Abdominal location: epigastric Qualified Code(s): R10.13 - Epigastric pain - Discharge Dispostion Condition at time of disposition: Stable Decision to Admit order: Yes - Referrals Referrals: Brian Pop MD [Primary Care Provider] - - Patient Instructions - Post Discharge Activity
[2019-05-22 19:06] LABS: ANISOCYTOSIS 1+; MACROCYTOSIS 1+; PLATELET ESTIMATE NORMAL
[2019-05-22] MEDS ORDERED: POTASSIUM CHLORIDE ORAL LIQUID 20 MEQ/15 ML ONE (19:33)
[2019-05-22 19:55] LABS: PH,URINE 5.5 (5.0-8.0); URINE APPEARANCE CLEAR; URINE BILIRUBIN NEGATIVE (NEGATIVE); URINE COLOR YELLOW; URINE GLUCOSE (UA) NEGATIVE (NEGATIVE); URINE KETONE TRACE (NEGATIVE); URINE LEUK ESTERASE NEGATIVE (NEGATIVE); URINE NITRITE NEGATIVE (NEGATIVE); URINE PROTEIN NEGATIVE (NEGATIVE); URINE UROBILINOGEN 0.2 mg/dL (0.2-1.0)
[2019-05-22] MEDS ORDERED: PIPERACILLIN/TAZOB 4.5 GM 4.5 GM in DEXTROSE 5%-WATER 100 ML IVPB ONE (22:25)
[2019-05-22] MEDS ORDERED: LACTATED RINGERS SOLUTION 1,000 ML/1,000 ML INFUS.BAG IV SCH (22:30)
[2019-05-22] MEDS ORDERED: ONDANSETRON 4 MG/2 ML VIAL IVPUSH PRN (23:30)
[2019-05-22] MEDS ORDERED: SODIUM CHLORIDE 1,000 ML IV SCH (23:30)
--- NOTE | 2019-05-22 23:43 | HP ---
CHIEF COMPLAINT:abdominal pain, decreased po intake PCP:Chetan HISTORY OF PRESENT ILLNESS: Esther Banks is an 83 yo F w a PMH of lung CA (s/p thoracotomy with LLL lobectomy) , COPD (on 3 LPM home O2 prn), frequent bronchitis/PNA, CAD, HTN, HLD, GI bleed , TIA, and cholecystectomy who presented to the ER via private auto sent in by her PCP - Dr. Benton - for increased abdominal pain for the last 2 weeks. The patient states she has had lower abdominal pain associated with constant nausea and occasional episodes of white NBNB emesis. daughter present in ED, pt discharged last month from [facility], for copd exacerbation, reports pt was on steroid taper and developed thrush, had decreased po intake, not drinking water. pt denies diarrhea, last BM yesterday ER course was notable for: (1)Creat 1.9 (2)Lipase 644 (3)WBC 13.8 Recent Travel: PAST MEDICAL HISTORY: COPD (on 3 LPM home O2 prn), frequent bronchitis/PNA, CAD, HTN, HLD, GI bleed, TIA, PAST SURGICAL HISTORY: lung CA (s/p thoracotomy with LLL lobectomy),cholecystectomy Social History: Smoking:denies Alcohol:denies Drugs: denies Family History: Allergies aspirin Allergy (Verified 05/22/19 19:00) HOME MEDICATIONS: Home Medications Medication Instructions Recorded Levothyroxine [Synthroid -] 50 mcg PO DAILY@0700 #30 tablet 01/12/16 Losartan Potassium [Cozaar -] 50 mg PO DAILY #30 tablet 01/12/16 Rosuvastatin [Crestor -] 10 mg PO HS #30 tablet 01/12/16 Ranitidine HCl [Zantac] 150 mg PO PRN PRN 09/01/16 Tiotropium [place] [Spiriva] 1 inh PO PRN PRN 09/01/16 Hydrochlorothiazide [Hctz -] 12.5 mg PO DAILY #30 cap 04/30/19 Tiotropium [place] [Spiriva 2 puff IH DAILY #1 inhaler 04/30/19 Respimat] Albuterol 0.083% Nebulizer Linda 1 amp NEB RQID PRN 05/22/19 [Ventolin 0.083% Nebulizer Soln -] Budesonide/Formeterol Fumarate 1 inh PO PRN PRN 05/22/19 [SYMBICORT 160/4.5mcg -] REVIEW OF SYSTEMS CONSTITUTIONAL: Absent: fever, chills, diaphoresis, generalized weakness, malaise, +loss of appetite, weight change HEENT: Absent: rhinorrhea, nasal congestion, throat pain, throat swelling, difficulty swallowing, mouth swelling, ear pain, eye pain, visual changes CARDIOVASCULAR: Absent: chest pain, syncope, palpitations, irregular heart rate, lightheadedness , peripheral edema RESPIRATORY: Absent: cough, shortness of breath, dyspnea with exertion, orthopnea, wheezing, stridor, hemoptysis GASTROINTESTINAL:+lower abd pain, +Vomiting, nausea Absent: abdominal distension, diarrhea, constipation, melena, hematochezia GENITOURINARY: Absent: dysuria, frequency, urgency, hesitancy, hematuria, flank pain, genital pain MUSCULOSKELETAL: Absent: myalgia, arthralgia, joint swelling, back pain, neck pain SKIN: Absent: rash, itching, pallor HEMATOLOGIC/IMMUNOLOGIC: Absent: easy bleeding, easy bruising, lymphadenopathy, frequent infections ENDOCRINE: Absent: unexplained weight gain, unexplained weight loss, heat intolerance, cold intolerance NEUROLOGIC: Absent: headache, focal weakness or paresthesias, dizziness, unsteady gait, seizure, mental status changes, bladder or bowel incontinence PSYCHIATRIC: Absent: anxiety, depression, suicidal or homicidal ideation, hallucinations. PHYSICAL EXAMINATION Vital Signs - 24 hr 05/22/19 05/22/19 05/22/19 15:57 17:39 18:42 Temperature 97.9 F 98.3 F 98.0 F Pulse Rate 97 H Pulse Rate [ 88 87 Apical] Respiratory 18 22 H 19 Rate Blood Pressure 94/51 L Blood Pressure 86/51 L 92/51 L [Right Arm] O2 Sat by Pulse 98 97 100 Oximetry (%) 05/22/19 20:59 Temperature Pulse Rate Pulse Rate [ 85 Apical] Respiratory Rate Blood Pressure Blood Pressure 108/61 [Right Arm] O2 Sat by Pulse 97 Oximetry (%) GENERAL: Awake, alert, and fully oriented, in no acute distress. HEAD: Normal with no signs of trauma. EYES: Pupils equal, round and reactive to light, extraocular movements intact, sclera anicteric, conjunctiva clear. No lid lag. EARS, NOSE, THROAT: Ears normal, nares patent, oropharynx clear without exudates. Moist mucous membranes. NECK: Normal range of motion, supple without lymphadenopathy, JVD, or masses. LUNGS: Breath sounds equal, clear to auscultation bilaterally. No wheezes, and no crackles. No accessory muscle use. HEART: Regular rate and rhythm, normal S1 and S2 without murmur, rub or gallop. ABDOMEN: Soft, tender on palpation lower quadrants,, not distended, normoactive bowel sounds, no guarding, no rebound, no masses. No hepatomegaly or splenomegaly. MUSCULOSKELETAL: Normal range of motion at all joints. No bony deformities or tenderness. No CVA tenderness. UPPER EXTREMITIES: 2+ pulses, warm, well-perfused. No cyanosis. No clubbing. No peripheral edema. LOWER EXTREMITIES: 2+ pulses, warm, well-perfused. No calf tenderness. No peripheral edema. NEUROLOGICAL: Cranial nerves II-XII intact. Normal speech. Normal gait. PSYCHIATRIC: Cooperative. Good eye contact. Appropriate mood and affect. SKIN: Warm, dry, normal turgor, no rashes or lesions noted, normal capillary refill. Laboratory Results - last 24 hr 05/22/19 05/22/19 05/22/19 16:59 16:59 16:59 WBC 13.8 H RBC 3.57 L Hgb 10.8 Hct 32.6 MCV 91.1 MCH 30.1 MCHC 33.1 RDW 14.3 Plt Count 252 MPV 8.7 D Absolute Neuts (auto) 11.6 H Neutrophils % 83.9 H Neutrophils % (Manual) 84.0 H Lymphocytes % 10.7 D Lymphocytes % (Manual) 11.0 D Monocytes % 5.0 Monocytes % (Manual) 5 D Eosinophils % 0.0 Basophils % 0.4 Nucleated RBC % 0 Hypochromia 1+ Platelet Estimate Normal Platelet Comment No clumping noted Anisocytosis 1+ Macrocytosis 1+ PT with INR 12.70 INR 1.08 Sodium 136 Potassium 3.4 L Chloride 99 Carbon Dioxide 30 Anion Gap 7 L BUN 25.8 H Creatinine 1.9 H Est GFR (CKD-EPI)AfAm 28.16 Est GFR (CKD-EPI)NonAf 24.30 Random Glucose 105 Lactic Acid Calcium 8.4 L Phosphorus 3.3 Magnesium 2.2 Total Bilirubin 1.4 H AST 14 L ALT 19 Alkaline Phosphatase 80 Total Protein 5.6 L Albumin 2.5 L Triglycerides 139 Cholesterol 161 Total LDL Cholesterol 106 H HDL Cholesterol 40 Lipase 644 H Urine Color Urine Appearance Urine pH Ur Specific [place] Urine Protein Urine Glucose (UA) Urine Ketones Urine Blood Urine Nitrite Urine Bilirubin Urine Urobilinogen Ur Leukocyte Esterase Blood Type Antibody Screen 05/22/19 05/22/19 05/22/19 16:59 17:13 17:30 WBC RBC Hgb Hct MCV MCH MCHC RDW Plt Count MPV Absolute Neuts (auto) Neutrophils % Neutrophils % (Manual) Lymphocytes % Lymphocytes % (Manual) Monocytes % Monocytes % (Manual) Eosinophils % Basophils % Nucleated RBC % Hypochromia Platelet Estimate Platelet Comment Anisocytosis Macrocytosis PT with INR INR Sodium Potassium Chloride Carbon Dioxide Anion Gap BUN Creatinine Est GFR (CKD-EPI)AfAm Est GFR (CKD-EPI)NonAf Random Glucose Lactic Acid 1.0 Calcium Phosphorus Magnesium Total Bilirubin AST ALT Alkaline Phosphatase Total Protein Albumin Triglycerides Cholesterol Total LDL Cholesterol HDL Cholesterol Lipase Urine Color Yellow Urine Appearance Clear Urine pH 5.5 Ur Specific [place] 1.015 Urine Protein Negative Urine Glucose (UA) Negative Urine Ketones Trace H Urine Blood Negative Urine Nitrite Negative Urine Bilirubin Negative Urine Urobilinogen 0.2 Ur Leukocyte Esterase Negative Blood Type A POSITIVE Antibody Screen Negative ASSESSMENT/PLAN: Esther Banks is an 83 yo F w a PMH of lung CA (s/p thoracotomy with LLL lobectomy) , COPD (on 3 LPM home O2 prn), frequent bronchitis/PNA, CAD, HTN, HLD, GI bleed , TIA, and cholecystectomy admitted for Admitting Diagnosis Diverticulitis MIRANDA Pancreatitis Chronic Problems COPD CAD HTN HLD TIA Hypothyroidism A/P: #Diverticulitis -npo -IVF -antemetics -IV zosyn -CT scan acute diverticulitis #MIRANDA 2/2 volume depletion -IVF -monitor BMP #Pancreatitis -lipase 644 -pain mgt -IVF -US abd unremarkable #elevated bili -total bili 1.4 -US abd no biliary tract dilation #COPD -on home O2 -on symbicort, ventolin, spiriva #HTN -hypotensive in ED -BP meds on hold #HLD -on crestor #Hypothyroidism -resume synthroid Full Code Dispo: requires inpt treatment Visit type - Emergency Visit Emergency Visit: Yes Care time: The patient presented to the Emergency Department on the above date and was hospitalized for further evaluation of their emergent condition. - New Patient This patient is new to me today: Yes Date on this admission: 05/22/19 - Critical Care Critical Care patient: No
[2019-05-23] MEDS ORDERED: PIPERACILLIN/TAZOB 4.5 GM 4.5 GM/100 ML BAG IVPB ONE (00:26)
[2019-05-23] MEDS ORDERED: PIPERACILLIN/TAZOB 3.375 GM 3.375 GM in DEXTROSE 5%-WATER - 50 ML IVPB SCH (02:00)
[2019-05-23] MEDS ORDERED: SODIUM CHLORIDE 1,000 ML IV SCH (06:30)
[2019-05-23] MEDS: LEVOTHYROXINE NA 50 MCG TABLET (FP) PO SCH (07:27)
[2019-05-23 07:47] LABS: ALBUMIN 2.2 g/dl (3.4-5.0); BILIRUBIN,TOTAL 1.2 mg/dL (0.2-1); BLOOD UREA NITROGEN 17.2 mg/dL (7-18); CALCIUM 7.6 mg/dL (8.5-10.1); CREATININE 1.5 mg/dL (0.55-1.3); MAGNESIUM 1.9 mg/dL (1.8-2.4); POTASSIUM 3.6 mmol/L (3.5-5.1); TOT PROT 4.8 g/dl (6.4-8.2)
--- NOTE | 2019-05-23 09:16 | PN ---
Progress Note, Physician History of Present Illness: Esther Banks is an 83 yo F w a PMH of lung CA (s/p thoracotomy with LLL lobectomy) , COPD (on 3 LPM home O2 prn), frequent bronchitis/PNA, CAD, HTN, HLD, GI bleed , TIA, and cholecystectomy who presented to the ER via private auto sent in by her PCP - Dr. Benton - for increased abdominal pain for the last 2 weeks. The patient states she has had lower abdominal pain associated with constant nausea and occasional episodes NBNB emesis. Recent admission t discharged last month from [facility], for copd exacerbation, reports pt was on steroid taper and developed thrush, had decreased po intake, not drinking water. pt denies diarrhea, last BM yesterday - Current Medication List Current Medications: Active Medications Albuterol Sulfate (Ventolin 0.083% Nebulizer Soln -) 1 amp NEB Q6H PRN PRN Reason: WHEEZING Budesonide/Formoterol Fumarate (Symbicort 160/4.5mcg -) 1 puff IH BID [facility] Docusate Sodium (Colace -) 100 mg PO BID SADE Heparin Sodium (Porcine) (Heparin -) 5,000 unit SQ BID SADE Piperacillin Sod/Tazobactam (Sod 3.375 gm/ Dextrose) 50 mls @ 100 mls/hr IVPB Q8H-IV SADE; Protocol Piperacillin Sod/Tazobactam (Sod 3.375 gm/ Dextrose) 50 mls @ 100 mls/hr IVPB Q8H-IV SADE Stop: 05/23/19 18:29 Levothyroxine Sodium (Synthroid -) 50 mcg PO DAILY@0700 [facility] Last Admin: 05/23/19 07:27 Dose: 50 mcg Ondansetron HCl (Zofran Injection) 4 mg IVPUSH Q6H PRN PRN Reason: NAUSEA Ranitidine HCl (Zantac -) 150 mg PO BID SADE Rosuvastatin Calcium (Crestor -) 10 mg PO HS SADE Tiotropium [place] (Spiriva Respimat) 2 puff IH DAILY [facility] - Objective Vital Signs: Vital Signs Temperature 97.5 F L 05/22/19 23:14 Pulse Rate 80 05/23/19 00:47 Respiratory Rate 20 05/22/19 23:14 Blood Pressure 112/53 L 05/23/19 00:47 O2 Sat by Pulse Oximetry (%) 99 05/23/19 00:47 Constitutional: Yes: Well Nourished, No Distress, Calm Eyes: Yes: WNL, Conjunctiva Clear, EOM Intact HENT: Yes: WNL, Atraumatic, Normocephalic, Thrush (to tounge) Neck: Yes: WNL, Supple, Trachea Midline Cardiovascular: Yes: WNL, Regular Rate and Rhythm Respiratory: Yes: WNL, Regular, CTA Bilaterally Gastrointestinal: Yes: WNL, Normal Bowel Sounds, Soft Genitourinary: Yes: Bladder Distention Musculoskeletal: Yes: WNL Extremities: Yes: WNL Peripheral Pulses WNL: Yes Integumentary: Yes: WNL Neurological: Yes: WNL, Alert, Oriented ...Motor Strength: WNL Psychiatric: Yes: WNL, Alert, Oriented Labs: CBC, BMP 05/23/19 06:54 INR, PTT INR 1.08 (0.83-1.09) 05/22/19 16:59 Problem List - Problems (1) MIRANDA (acute kidney injury) Assessment/Plan: Cr 1.5 down from 1.9 with hydration avaolid nephrotoxic agents Continue to trend Cr Code(s): N17.9 - ACUTE KIDNEY FAILURE, UNSPECIFIED (2) Abdominal pain Assessment/Plan: maintian NPO IVF PPI zofran/reglan prn Code(s): R10.9 - UNSPECIFIED ABDOMINAL PAIN Qualifiers: Abdominal location: epigastric Qualified Code(s): R10.13 - Epigastric pain (3) Diverticulitis Assessment/Plan: mainatin NPO/IVF Continue zozyn monitor LFTs Code(s): K57.92 - DVTRCLI OF INTEST, PART UNSP, W/O PERF OR ABSCESS W/O BLEED (4) Elevated lipase Assessment/Plan: NPO continue to trend lipase Code(s): R74.8 - ABNORMAL LEVELS OF OTHER SERUM ENZYMES (5) Total bilirubin, elevated Assessment/Plan: Tbil 1.2 continue to trend Code(s): R17 - UNSPECIFIED JAUNDICE (6) Prophylactic measure Assessment/Plan: FEN maintain NPO IVF DVT heparin sq early ambulation Dispo maintain as in patient full code discharge planning Code(s): Z29.9 - ENCOUNTER FOR PROPHYLACTIC MEASURES, UNSPECIFIED Visit type - Emergency Visit Emergency Visit: Yes ED Registration Date: 05/22/19 Care time: The patient presented to the Emergency Department on the above date and was hospitalized for further evaluation of their emergent condition. - New Patient This patient is new to me today: Yes Date on this admission: 05/23/19 - Critical Care Critical Care patient: No - Discharge Referral Referred to [facility] Med P.C.: No
[2019-05-23] MEDS: DOCUSATE SODIUM 100 MG CAPSULE (FP) PO SCH ×2 (09:23→21:46)
[2019-05-23] MEDS ORDERED: PIPERACILLIN/TAZOBACTAM 3.375 GM VIAL IVPB ONE ×2 (09:25→18:05)
[2019-05-23] MEDS ORDERED: DEXTROSE 5%-WATER - 50 ML IVPB ONE ×2 (09:25→18:05)
[2019-05-23] MEDS: PIPERACILLIN/TAZOB 3.375 GM 3.375 GM in DEXTROSE 5%-WATER - 50 ML IVPB SCH ×2 (09:27→18:10)
[2019-05-23] MEDS: HEPARIN NA (PORCINE) 5,000 UNITS/ML 1ML VIAL SQ SCH ×2 (09:33→21:48)
[2019-05-23 09:34] LABS: HEMOGLOBIN 9.4 GM/dL (10.7-15.3); MCH 30.2 pg (25.7-33.7); MCHC 33.5 g/dl (32.0-36.0); MEAN CELL VOLUME 90.1 fl (80-96); PLATELET COUNT 217 K/MM3 (134-434); RDW 14.2 % (11.6-15.6); WHITE BLOOD COUNT 11.3 K/mm3 (4.0-10.0)
[2019-05-23] MEDS ORDERED: RANITIDINE HCL 150 MG TABLET (FP) PO SCH (10:00)
--- NOTE | 2019-05-23 10:16 | EKG ---
Test Reason : Blood Pressure : / mmHG Vent. Rate : 099 BPM Atrial Rate : 099 BPM P-R Int : 124 ms QRS Dur : 072 ms QT Int : 348 ms P-R-T Axes : 062 -13 -12 degrees QTc Int : 446 ms NORMAL SINUS RHYTHM MODERATE VOLTAGE CRITERIA FOR LVH, MAY BE NORMAL VARIANT ABNORMAL ECG WHEN COMPARED WITH ECG OF 13-APR-2019 05:16, NO SIGNIFICANT CHANGE WAS FOUND Confirmed by JACKIE HOWARD MD ([id number]) on 05/23/2019 10:15:55 AM Referred By: Confirmed By:JACKIE HOWARD MD
[2019-05-23] MEDS ORDERED: PT OWN MED DRAWER 7, Y5N ONE (11:58)
[2019-05-23] MEDS: PANTOPRAZOLE SODIUM 40 MG VIAL IVPUSH SCH (12:25)
[2019-05-23] MEDS: NYSTATIN 500,000 UNITS/5 ML SUSPENSION PO SCH ×2 (12:26→18:09)
[2019-05-23] MEDS: BUDESONIDE/FORMETEROL FUMARATE 160/4.5 mcg INHALER IH SCH ×2 (12:53→21:47)
[2019-05-23] MEDS: TIOTROPIUM BROMIDE 2.5 MCG (SPIRIVA) RESPIMAT INHALER IH SCH (12:58)
[2019-05-23] MEDS: ROSUVASTATIN CA 10 MG TABLET (FP) PO SCH (21:46)
[2019-05-23] MEDS: LACTATED RINGERS SOLUTION 1,000 ML/1,000 ML INFUS.BAG IV SCH (21:46)
[2019-05-24] MEDS: NYSTATIN 500,000 UNITS/5 ML SUSPENSION PO SCH ×4 (01:45→17:48)
[2019-05-24] MEDS ORDERED: PIPERACILLIN/TAZOB 3.375 GM 3.375 GM in DEXTROSE 5%-WATER - 50 ML IVPB ONE (02:00)
[2019-05-24] MEDS ORDERED: PIPERACILLIN/TAZOBACTAM 3.375 GM VIAL IVPB ONE ×2 (02:11→17:08)
[2019-05-24] MEDS ORDERED: DEXTROSE 5%-WATER - 50 ML IVPB ONE ×2 (02:11→17:08)
[2019-05-24] MEDS: LEVOTHYROXINE NA 50 MCG TABLET (FP) PO SCH (06:59)
[2019-05-24] MEDS ORDERED: PT OWN MED DRAWER 7, Y5N ONE (09:38)
[2019-05-24] MEDS: HEPARIN NA (PORCINE) 5,000 UNITS/ML 1ML VIAL SQ SCH ×4 (09:42→22:07)
[2019-05-24] MEDS: PANTOPRAZOLE SODIUM 40 MG VIAL IVPUSH SCH (09:43)
[2019-05-24] MEDS: DOCUSATE SODIUM 100 MG CAPSULE (FP) PO SCH ×2 (09:43→21:48)
[2019-05-24] MEDS: BUDESONIDE/FORMETEROL FUMARATE 160/4.5 mcg INHALER IH SCH ×2 (09:44→21:52)
[2019-05-24] MEDS: TIOTROPIUM BROMIDE 2.5 MCG (SPIRIVA) RESPIMAT INHALER IH SCH (09:44)
--- NOTE | 2019-05-24 10:11 | PN ---
Progress Note (short form) - Note Progress Note: ID CONSULT DICTATED UNCOMPLICATED SIGMOID DIVERTICULITIS LEUKOCYTOSIS IMPROVED AZOTEMIA ELEVATED SERUM LIPASE RML ATELECTASIS + URINE C/S ASYMPTOMATIC BACTERURIA CONTINUE ZOSYN ADVANCE DIET IF STABLE SUBSTITUTE AUGMENTIN 875MG PO BID 10D CONSIDER GI EVALUATION AND PULM F/U OF NEW CT FINDING
--- NOTE | 2019-05-24 11:13 | CONS ---
DATE OF CONSULTATION: DATE OF DICTATION: 05/24/2019 HISTORY OF PRESENT ILLNESS: The patient is an 83-year-old female who was evaluated for diverticulitis. The patient was admitted to the hospital on May 22, 2019, with complaints of abdominal pain. She was recently hospitalized at [facility] in late March and early April for COPD exacerbation. She was discharged on April 30. She was seen in followup by her primary care physician. She was noted on examination to have lower abdominal tenderness. She was referred to the emergency room. In the emergency room, the patient was evaluated, was noted to be hypotensive. A CT scan of the abdomen and pelvis was performed and showed subtle minimal tomild pericolonic soft tissue stranding adjacent to the upper and lower thirds of the sigmoid colon possibly on the basis of early uncomplicated acute diverticulitis. There was nonspecific colonic wall thickening, numerous diverticula were noted. The pancreas appeared normal. There was no evidence of perforation or abscess. Her hospital course was significant for elevated white blood cell count. Patient was empirically treated with Zosyn. Presently, the patient is awake and alert. She has no complaints of abdominal pain. She is tolerating a liquid diet. She denies any nausea or vomiting. She reports having a normal bowel movement today. PAST MEDICAL HISTORY: Positive for lung cancer status post lobectomy, diverticulosis, COPD, TIA, coronary artery disease, hypertension, hyperlipidemia, GI bleeding, recurrent bronchitis/pneumonia. PAST SURGICAL HISTORY: Status post left lower lobe lobectomy, cholecystectomy. ALLERGIES: To ASPIRIN. MEDICATIONS: Include albuterol, Synthroid, Protonix, Zosyn, Crestor. SOCIAL HISTORY: She lives at home. She is a nonsmoker, nondrinker. SYSTEMS REVIEW: Neurologic: No loss of consciousness, seizure activity, or focal weakness. Cardiac: Negative for chest pain or palpitations. Respiratory: Positive for COPD. Gastrointestinal: As per HPI. Genitourinary: Negative for urinary tract infection. No dysuria or hematuria. LABORATORY DATA: White count on admission 13.8, presently 11.3, hematocrit 28.0, platelet count 217. BUN 17, creatinine 1.5. Urinalysis negative. Urine culture growing group D strep. Blood cultures negative. Lipase 644, total bilirubin 1.2, alkaline phosphatase 67, AST 12. PHYSICAL EXAMINATION: General: She is awake and alert. She is comfortable, in no acute distress. Vital signs: Temperature 99, blood pressure 107/65, pulse 88 and regular, respirations 20 per minute. HEENT: Sclerae anicteric. Heart: Heart sounds S1, S2. Lungs: Clear. Abdomen: Positive bowel sounds. Soft. There is no tenderness to palpation. No mass, rebound, or rigidity. No lower quadrant abdominal tenderness. Extremities: Negative for edema. IMPRESSION: 1. Acute uncomplicated sigmoid diverticulitis. 2. Leukocytosis improved. 3. Azotemia. 4. Elevated serum lipase with normal pancreas on CT scan. 5. Right middle lobe atelectasis. 6. Positive urine culture, suspected enterococcus. Continue Zosyn, advance diet. If clinically stable, may substitute Augmentin 875 mg p.o. b.i.d. for an additional 10 days. Would consider GI evaluation and followup as well as pulmonary followup of new CT scan finding. JACKIE ORDONEZ M.D. [id number]
[2019-05-24] MEDS: ALBUTEROL SO4 0.083% IH SOL 2.5 MG/3 ML VIAL.NEB. NEB PRN ×2 (16:16→21:30)
[2019-05-24 16:32] VITALS: BMI 24.4
[2019-05-24] MEDS: PIPERACILLIN/TAZOB 3.375 GM 3.375 GM in DEXTROSE 5%-WATER - 50 ML IVPB SCH (17:31)
[2019-05-24] MEDS: LACTATED RINGERS SOLUTION 1,000 ML/1,000 ML INFUS.BAG IV SCH (17:48)
[2019-05-24] MEDS: ROSUVASTATIN CA 10 MG TABLET (FP) PO SCH (21:48)
--- NOTE | 2019-05-24 22:54 | PN ---
Progress Note, Physician - Current Medication List Current Medications: Active Medications Albuterol Sulfate (Ventolin 0.083% Nebulizer Soln -) 1 amp NEB Q6H PRN PRN Reason: WHEEZING Last Admin: 05/24/19 16:16 Dose: 1 amp Budesonide/Formoterol Fumarate (Symbicort 160/4.5mcg -) 1 puff IH BID [facility] Last Admin: 05/24/19 21:52 Dose: 1 puff Docusate Sodium (Colace -) 100 mg PO BID SADE Last Admin: 05/24/19 21:48 Dose: 100 mg Heparin Sodium (Porcine) (Heparin -) 5,000 unit SQ BID [facility] Last Admin: 05/24/19 22:07 Dose: Not Given Lactated Ringer's (Lactated Ringers Solution) 1,000 ml in 1,000 mls @ 75 mls/ hr IV ASDIR [facility] Last Admin: 05/24/19 17:48 Dose: 75 mls/hr Piperacillin Sod/Tazobactam (Sod 3.375 gm/ Dextrose) 50 mls @ 100 mls/hr IVPB Q8H-IV SADE; Protocol Last Admin: 05/24/19 17:31 Dose: 100 mls/hr Levothyroxine Sodium (Synthroid -) 50 mcg PO DAILY@0700 [facility] Last Admin: 05/24/19 06:59 Dose: 50 mcg Nystatin (Nystatin Oral Suspension -) 500,000 units PO Q6HPO SADE Last Admin: 05/24/19 17:48 Dose: 500,000 units Ondansetron HCl (Zofran Injection) 4 mg IVPUSH Q6H PRN PRN Reason: NAUSEA Pantoprazole Sodium (Protonix Iv) 40 mg IVPUSH DAILY [facility] Last Admin: 05/24/19 09:43 Dose: 40 mg Rosuvastatin Calcium (Crestor -) 10 mg PO HS [facility] Last Admin: 05/24/19 21:48 Dose: 10 mg Tiotropium [place] (Spiriva Respimat) 2 puff IH DAILY [facility] Last Admin: 05/24/19 09:44 Dose: 2 puff - Objective Vital Signs: Vital Signs Temperature 98.7 F 05/24/19 19:19 Pulse Rate 70 05/24/19 19:19 Respiratory Rate 18 05/24/19 19:19 Blood Pressure 144/71 05/24/19 19:19 O2 Sat by Pulse Oximetry (%) 99 05/24/19 09:00 Labs: CBC, BMP 05/23/19 06:54 05/23/19 06:54 INR, PTT INR 1.08 (0.83-1.09) 05/22/19 16:59
[2019-05-25] MEDS ORDERED: DEXTROSE 5%-WATER - 50 ML IVPB ONE ×3 (01:01→16:59)
[2019-05-25] MEDS ORDERED: PIPERACILLIN/TAZOBACTAM 3.375 GM VIAL IVPB ONE ×3 (01:01→16:59)
[2019-05-25] MEDS: PIPERACILLIN/TAZOB 3.375 GM 3.375 GM in DEXTROSE 5%-WATER - 50 ML IVPB SCH ×7 (01:12→17:06)
[2019-05-25] MEDS: NYSTATIN 500,000 UNITS/5 ML SUSPENSION PO SCH ×4 (01:13→17:06)
[2019-05-25] MEDS: LEVOTHYROXINE NA 50 MCG TABLET (FP) PO SCH (06:53)
[2019-05-25 07:48] LABS: BASO % 0.4 % (0-2.0); EOS % 0.1 % (0-4.5); HEMOGLOBIN 8.5 GM/dL (10.7-15.3); LYMPH % 14.6 % (8-40); MCH 30.2 pg (25.7-33.7); MCHC 33.9 g/dl (32.0-36.0); MEAN PLT VOLUME 7.5 fl (7.5-11.1); MONO % 6.4 % (3.8-10.2); NEUT % 78.5 % (42.8-82.8); RBC 2.81 M/mm3 (3.60-5.2); RDW 14.1 % (11.6-15.6); WHITE BLOOD COUNT 7.5 K/mm3 (4.0-10.0)
[2019-05-25 08:34] LABS: ALBUMIN 1.9 g/dl (3.4-5.0); BILIRUBIN,TOTAL 0.9 mg/dL (0.2-1); BLOOD UREA NITROGEN 5.2 mg/dL (7-18); CALCIUM 7.3 mg/dL (8.5-10.1); CREATININE 0.8 mg/dL (0.55-1.3); POTASSIUM 3.2 mmol/L (3.5-5.1); TOT PROT 4.3 g/dl (6.4-8.2)
[2019-05-25 08:45] LABS: PLATELET COUNT 210 K/MM3 (134-434)
[2019-05-25] MEDS ORDERED: PT OWN MED DRAWER 7, Y5N ONE (10:06)
[2019-05-25] MEDS: LACTATED RINGERS SOLUTION 1,000 ML/1,000 ML INFUS.BAG IV SCH ×2 (10:15→18:32)
[2019-05-25] MEDS: PANTOPRAZOLE SODIUM 40 MG VIAL IVPUSH SCH (10:15)
[2019-05-25] MEDS: DOCUSATE SODIUM 100 MG CAPSULE (FP) PO SCH ×2 (10:15→22:04)
[2019-05-25] MEDS: BUDESONIDE/FORMETEROL FUMARATE 160/4.5 mcg INHALER IH SCH ×2 (10:22→22:05)
[2019-05-25] MEDS: TIOTROPIUM BROMIDE 2.5 MCG (SPIRIVA) RESPIMAT INHALER IH SCH (10:22)
[2019-05-25] MEDS: HEPARIN NA (PORCINE) 5,000 UNITS/ML 1ML VIAL SQ SCH ×2 (10:30→21:58)
--- NOTE | 2019-05-25 11:35 | CON.GI ---
Consult Consult Specialty:: Gastroenterology ( covering Dr Jimenez) Referred by:: Dr Benton Reason for Consultation:: Diverticulitis - History of Present Illness Chief Complaint: Tenderness on palpation History of Present Illness: 83F was admitted after Dr Benton discovered LLQ tenderness. She has been moving her bowels daily and denies any chill of fevers. Esther denies pain unless the area is palpated. CT scan suggests sigmoid diverticulitis. Esther tells me that she had a colonoscopy with Dr. Jiemnez within the past 4-5 years and reports that it was normal. 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 by Dr Carr), COPD Gastrointestinal: Yes: Diverticulitis (current episode) Hepatobiliary: Yes: Cholelithiasis, Cholecystitis Endocrine: Yes: Hypothyroidism, Other (prediabetic) - Past Surgical History Past Surgical History: Yes: Breast Biopsy (left breast bx was benign), Cataract Removal, Colonoscopy, Thoracotomy (left lower lobectomy) - Alcohol/Substance Use Hx Alcohol Use: No History of Substance Use: reports: None - Smoking History Smoking history: Never smoked Have you smoked in the past 12 months: No - Social History Usual Living Arrangement: Alone ADL: Independent Place of : Other ([facility]) Came to [place] (year[place] in her 60s History of Recent Travel: Yes (returned from [place] end of July) Home Medications - Allergies Allergies/Adverse Reactions: Allergies Allergy/AdvReac Type Severity Reaction Status Date / Time aspirin Allergy Verified 05/22/19 19:00 - Home Medications Home Medications: Ambulatory Orders Levothyroxine [Synthroid -] 50 mcg PO DAILY@0700 #30 tablet 01/12/16 Losartan Potassium [Cozaar -] 50 mg PO DAILY #30 tablet 01/12/16 Rosuvastatin [Crestor -] 10 mg PO HS #30 tablet 01/12/16 Ranitidine HCl [Zantac] 150 mg PO PRN PRN 09/01/16 Tiotropium [place] [Spiriva] 1 inh PO PRN PRN 09/01/16 Hydrochlorothiazide [Hctz -] 12.5 mg PO DAILY #30 cap 04/30/19 Tiotropium [place] [Spiriva Respimat] 2 puff IH DAILY #1 inhaler 04/30/19 Albuterol 0.083% Nebulizer Linda [Ventolin 0.083% Nebulizer Soln -] 1 amp NEB RQID PRN 05/22/19 Budesonide/Formeterol Fumarate [SYMBICORT 160/4.5mcg -] 1 inh PO PRN PRN Family Disease History - Family Disease History Family Disease History: Diabetes: Daughter, Heart Disease: Daughter, CA: Father (prostate cancer), Sister (Breast CA), Other: Mother (lived to ) Review of Systems - Review of Systems Constitutional: reports: No Symptoms Eyes: reports: No Symptoms HENT: reports: No Symptoms Neck: reports: No Symptoms Cardiovascular: reports: No Symptoms Respiratory: reports: No Symptoms Gastrointestinal: reports: Other (tenderness on palpation) Physical Exam-GI Vital Signs: Vital Signs Temperature 98.6 F 05/25/19 10:22 Pulse Rate 88 05/25/19 10:22 Respiratory Rate 18 05/25/19 10:22 Blood Pressure 124/63 05/25/19 10:22 O2 Sat by Pulse Oximetry (%) 99 05/24/19 21:00 CBC,CMP WBC 7.5 K/mm3 (4.0-10.0) 05/25/19 06:50 RBC 2.81 M/mm3 (3.60-5.2) L 05/25/19 06:50 Hgb 8.5 GM/dL (10.7-15.3) L 05/25/19 06:50 Hct 25.0 % (32.4-45.2) L 05/25/19 06:50 MCV 89.0 fl (80-96) 05/25/19 06:50 MCH 30.2 pg (25.7-33.7) 05/25/19 06:50 MCHC 33.9 g/dl (32.0-36.0) 05/25/19 06:50 RDW 14.1 % (11.6-15.6) 05/25/19 06:50 Plt Count 210 K/MM3 (134-434) 05/25/19 06:50 MPV 7.5 fl (7.5-11.1) 05/25/19 06:50 Absolute Neuts (auto) 5.9 K/mm3 (1.5-8.0) 05/25/19 06:50 Neutrophils % 78.5 % (42.8-82.8) 05/25/19 06:50 Neutrophils % (Manual) 84.0 % (42.8-82.8) H 05/22/19 16:59 Lymphocytes % 14.6 % (8-40) D 05/25/19 06:50 Lymphocytes % (Manual) 11.0 % (8-40) D 05/22/19 16:59 Monocytes % 6.4 % (3.8-10.2) 05/25/19 06:50 Monocytes % (Manual) 5 % (3.8-10.2) D 05/22/19 16:59 Eosinophils % 0.1 % (0-4.5) D 05/25/19 06:50 Basophils % 0.4 % (0-2.0) 05/25/19 06:50 Nucleated RBC % 0 % (0-0) 05/25/19 06:50 Hypochromia 1+ 05/22/19 16:59 Platelet Estimate Normal 05/22/19 16:59 Platelet Comment No clumping noted 05/22/19 16:59 Anisocytosis 1+ 05/22/19 16:59 Macrocytosis 1+ 05/22/19 16:59 Sodium 144 mmol/L (136-145) 05/25/19 06:50 Potassium 3.2 mmol/L (3.5-5.1) L 05/25/19 06:50 Chloride 108 mmol/L (98-107) H 05/25/19 06:50 Carbon Dioxide 28 mmol/L (21-32) 05/25/19 06:50 Anion Gap 9 MMOL/L (8-16) 05/25/19 06:50 BUN 5.2 mg/dL (7-18) L 05/25/19 06:50 Creatinine 0.8 mg/dL (0.55-1.3) 05/25/19 06:50 Est GFR (CKD-EPI)AfAm 80.14 05/25/19 06:50 Est GFR (CKD-EPI)NonAf 69.14 05/25/19 06:50 Random Glucose 94 mg/dL (74-106) 05/25/19 06:50 Lactic Acid 1.0 mmol/L (0.4-2.0) 05/22/19 17:13 Calcium 7.3 mg/dL (8.5-10.1) L 05/25/19 06:50 Phosphorus 3.3 mg/dL (2.5-4.9) 05/22/19 16:59 Magnesium 1.9 mg/dL (1.8-2.4) 05/23/19 06:54 Total Bilirubin 0.9 mg/dL (0.2-1) 05/25/19 06:50 AST 12 U/L (15-37) L 05/25/19 06:50 ALT 12 U/L (13-61) L 05/25/19 06:50 Alkaline Phosphatase 62 U/L (45-117) 05/25/19 06:50 Total Protein 4.3 g/dl (6.4-8.2) L 05/25/19 06:50 Albumin 1.9 g/dl (3.4-5.0) L 05/25/19 06:50 Triglycerides 139 mg/dL (0-150) 05/22/19 16:59 Cholesterol 161 mg/dL (50-200) 05/22/19 16:59 Total LDL Cholesterol 106 mg/dL (5-100) H 05/22/19 16:59 HDL Cholesterol 40 mg/dL (40-60) 05/22/19 16:59 Total Amylase 55 U/L (25-115) 05/25/19 06:50 Lipase 257 U/L (73-393) 05/25/19 06:50 Current Medications Generic Name Dose Route Start Last Admin Trade Name Freq PRN Reason Stop Dose Admin Albuterol Sulfate 1 amp 05/22/19 23:34 05/24/19 21:30 Ventolin 0.083% Nebulizer Soln - NEB 1 amp Q6H PRN Administration WHEEZING Budesonide/Formoterol Fumarate 1 puff 05/23/19 10:00 05/25/19 10:22 Symbicort 160/4.5mcg - IH 1 puff BID SADE Administration Docusate Sodium 100 mg 05/23/19 10:00 05/25/19 10:15 Colace - PO 100 mg BID SADE Administration Heparin Sodium (Porcine) 5,000 unit 05/23/19 10:00 05/25/19 10:30 Heparin - SQ Not Given BID SADE Lactated Ringer's 1,000 ml in 1,000 mls @ 75 mls/hr 05/23/19 15:15 05/25/19 10:15 Lactated Ringers Solution IV 75 mls/hr ASDIR SADE Administration Piperacillin Sod/Tazobactam 50 mls @ 100 mls/hr 05/24/19 18:00 05/25/19 10:15 Sod 3.375 gm/ Dextrose IVPB 100 mls/hr Q8H-IV SADE Administration Protocol Levothyroxine Sodium 50 mcg 05/23/19 07:00 05/25/19 06:53 Synthroid - PO 50 mcg DAILY@0700 SADE Administration Nystatin 500,000 units 05/23/19 12:00 05/25/19 06:53 Nystatin Oral Suspension - PO 500,000 units Q6HPO SADE Administration Ondansetron HCl 4 mg 05/22/19 23:30 Zofran Injection IVPUSH Q6H PRN NAUSEA Pantoprazole Sodium 40 mg 05/23/19 10:00 05/25/19 10:15 Protonix Iv IVPUSH 40 mg DAILY SADE Administration Rosuvastatin Calcium 10 mg 05/23/19 22:00 05/24/19 21:48 Crestor - PO 10 mg HS SADE Administration Tiotropium [place] 2 puff 05/23/19 10:00 05/25/19 10:22 Spiriva Respimat IH 2 puff DAILY SADE Administration Constitutional: Yes: Calm Eyes: Yes: WNL HENT: Yes: WNL Neck: Yes: Supple Cardiovascular: Yes: Regular Rate and Rhythm Respiratory: Yes: CTA Bilaterally, Other (healed left thoracotomy incision) Gastrointestinal Inspection: Yes: Scars (healed laparoscopic incisions) ...Auscultate: Yes: Normoactive Bowel Sounds ...Palpate: Yes: Soft, Other (nontender) ...Rectal Exam: Yes: Guaiac Negative (soft brown guaiac negative stool) Edema: No Neurological: Yes: Alert, Oriented Labs: CBC, BMP 05/25/19 06:50 05/25/19 06:50 INR, PTT INR 1.08 (0.83-1.09) 05/22/19 16:59 Imaging - Results Cat Scan: Image Reviewed Problem List - Problems (1) Diverticulitis Assessment/Plan: Appears to be resolving Code(s): K57.92 - DVTRCLI OF INTEST, PART UNSP, W/O PERF OR ABSCESS W/O BLEED (2) Asthma exacerbation Code(s): J45.901 - UNSPECIFIED ASTHMA WITH (ACUTE) EXACERBATION (3) H/O: lung cancer Code(s): Z85.118 - PERSONAL HISTORY OF MALIGNANT NEOPLASM OF BRONCHUS AND LUNG (4) Hypothyroidism Code(s): E03.9 - HYPOTHYROIDISM, UNSPECIFIED Assessment/Plan Impression: - Diverticulitis appears to be resolving well as she is tolerating solids and having formed BMs and denies pain Plan: -- NO GI objections to dscharge on oral antibiotics -- F/U with Dr Jimenez
[2019-05-25] MEDS ORDERED: POTASSIUM CHLORIDE TABS 20 MEQ TABLET.ER (FP) PO ONE (21:51)
--- NOTE | 2019-05-25 21:51 | PN ---
Progress Note, Physician - Current Medication List Current Medications: Active Medications Albuterol Sulfate (Ventolin 0.083% Nebulizer Soln -) 1 amp NEB Q6H PRN PRN Reason: WHEEZING Last Admin: 05/24/19 21:30 Dose: 1 amp Budesonide/Formoterol Fumarate (Symbicort 160/4.5mcg -) 1 puff IH BID [facility] Last Admin: 05/25/19 10:22 Dose: 1 puff Docusate Sodium (Colace -) 100 mg PO BID SADE Last Admin: 05/25/19 10:15 Dose: 100 mg Heparin Sodium (Porcine) (Heparin -) 5,000 unit SQ BID [facility] Last Admin: 05/25/19 10:30 Dose: Not Given Lactated Ringer's (Lactated Ringers Solution) 1,000 ml in 1,000 mls @ 75 mls/ hr IV ASDIR [facility] Last Admin: 05/25/19 18:32 Dose: Not Given Piperacillin Sod/Tazobactam (Sod 3.375 gm/ Dextrose) 50 mls @ 100 mls/hr IVPB Q8H-IV SADE; Protocol Last Admin: 05/25/19 17:06 Dose: 100 mls/hr Levothyroxine Sodium (Synthroid -) 50 mcg PO DAILY@0700 [facility] Last Admin: 05/25/19 06:53 Dose: 50 mcg Nystatin (Nystatin Oral Suspension -) 500,000 units PO Q6HPO SADE Last Admin: 05/25/19 17:06 Dose: 500,000 units Ondansetron HCl (Zofran Injection) 4 mg IVPUSH Q6H PRN PRN Reason: NAUSEA Pantoprazole Sodium (Protonix Iv) 40 mg IVPUSH DAILY [facility] Last Admin: 05/25/19 10:15 Dose: 40 mg Rosuvastatin Calcium (Crestor -) 10 mg PO HS [facility] Last Admin: 05/24/19 21:48 Dose: 10 mg Tiotropium St[place]on (Spiriva Respimat) 2 puff IH DAILY [facility] Last Admin: 05/25/19 10:22 Dose: 2 puff - Objective Vital Signs: Vital Signs Temperature 98.1 F 05/25/19 18:00 Pulse Rate 88 05/25/19 18:00 Respiratory Rate 20 05/25/19 18:00 Blood Pressure 123/90 05/25/19 18:00 O2 Sat by Pulse Oximetry (%) 99 05/25/19 09:00 Labs: CBC, BMP 05/25/19 06:50 05/25/19 06:50 INR, PTT INR 1.08 (0.83-1.09) 05/22/19 16:59
[2019-05-25] MEDS: ROSUVASTATIN CA 10 MG TABLET (FP) PO SCH (22:05)
[2019-05-26] MEDS: NYSTATIN 500,000 UNITS/5 ML SUSPENSION PO SCH ×3 (01:15→11:09)
[2019-05-26] MEDS ORDERED: PIPERACILLIN/TAZOBACTAM 3.375 GM VIAL IVPB ONE ×2 (01:46→09:33)
[2019-05-26] MEDS ORDERED: DEXTROSE 5%-WATER - 50 ML IVPB ONE ×2 (01:46→09:33)
[2019-05-26] MEDS: PIPERACILLIN/TAZOB 3.375 GM 3.375 GM in DEXTROSE 5%-WATER - 50 ML IVPB SCH ×2 (02:45→09:49)
[2019-05-26] MEDS: LACTATED RINGERS SOLUTION 1,000 ML/1,000 ML INFUS.BAG IV SCH (06:23)
[2019-05-26] MEDS: LEVOTHYROXINE NA 50 MCG TABLET (FP) PO SCH (06:23)
[2019-05-26 06:36] LABS: BASO % 0.4 % (0-2.0); EOS % 0.1 % (0-4.5); HEMATOCRIT 25.5 % (32.4-45.2); HEMOGLOBIN 8.5 GM/dL (10.7-15.3); LYMPH % 15.8 % (8-40); MCH 29.9 pg (25.7-33.7); MCHC 33.2 g/dl (32.0-36.0); MEAN PLT VOLUME 7.5 fl (7.5-11.1); MONO % 6.5 % (3.8-10.2); NEUT % 77.2 % (42.8-82.8); PLATELET COUNT 215 K/MM3 (134-434); RBC 2.83 M/mm3 (3.60-5.2); RDW 14.6 % (11.6-15.6); WHITE BLOOD COUNT 6.6 K/mm3 (4.0-10.0)
[2019-05-26 06:56] LABS: ALBUMIN 1.8 g/dl (3.4-5.0); BILIRUBIN,TOTAL 0.8 mg/dL (0.2-1); BLOOD UREA NITROGEN 5.3 mg/dL (7-18); CREATININE 0.9 mg/dL (0.55-1.3); POTASSIUM 3.9 mmol/L (3.5-5.1); TOT PROT 4.3 g/dl (6.4-8.2)
[2019-05-26] MEDS: DOCUSATE SODIUM 100 MG CAPSULE (FP) PO SCH (09:49)
[2019-05-26] MEDS: PANTOPRAZOLE SODIUM 40 MG VIAL IVPUSH SCH (09:50)
[2019-05-26] MEDS: BUDESONIDE/FORMETEROL FUMARATE 160/4.5 mcg INHALER IH SCH (09:50)
[2019-05-26] MEDS: HEPARIN NA (PORCINE) 5,000 UNITS/ML 1ML VIAL SQ SCH (09:51)
[2019-05-26] MEDS: TIOTROPIUM BROMIDE 2.5 MCG (SPIRIVA) RESPIMAT INHALER IH SCH (09:51)
[2019-05-26 14:21] VITALS: BP 112/69; PULSE 88; TEMP 98.7
--- NOTE | 2019-05-26 15:45 | PN.GI ---
GI Progress Note Subjective: GI Note ( covering Dr Jimenez); Pain free and tolerating solids. Had a BM. Daughters are present and anticipating discharge today - Objective Vital Signs: Vital Signs Temperature 98.7 F 05/26/19 14:20 Pulse Rate 88 05/26/19 14:20 Respiratory Rate 20 05/26/19 14:20 Blood Pressure 112/69 05/26/19 14:20 O2 Sat by Pulse Oximetry (%) 99 05/25/19 21:00 Laboratory Tests 05/25/19 05/26/19 05/26/19 06:50 06:00 06:00 WBC 6.6 Hgb 8.5 L 8.5 L Potassium 3.9 Total Bilirubin 0.8 AST 12 L ALT 11 L Alkaline Phosphatase 62 Constitutional: Calm ...Auscultate: Yes: Normoactive Bowel Sounds ...Palpate: Yes: Soft, Other (nontender) Labs: CBC, BMP 05/26/19 06:00 05/26/19 06:00 INR, PTT INR 1.08 (0.83-1.09) 05/22/19 16:59 Assessment/Plan Impression: - Diverticulitis appears to be resolved Plan: -- NO GI objections to discharge on oral antibiotics -- F/U with Dr Jimenez Problem List - Problems (1) Diverticulitis Code(s): K57.92 - DVTRCLI OF INTEST, PART UNSP, W/O PERF OR ABSCESS W/O BLEED (2) Asthma exacerbation Code(s): J45.901 - UNSPECIFIED ASTHMA WITH (ACUTE) EXACERBATION (3) H/O: lung cancer Code(s): Z85.118 - PERSONAL HISTORY OF MALIGNANT NEOPLASM OF BRONCHUS AND LUNG (4) Hypothyroidism Code(s): E03.9 - HYPOTHYROIDISM, UNSPECIFIED
== END 2019-05-26 16:15 | disposition home or self-care (01) | DRG 391 ==
LOC: JER 15:51 → JERBED 23:14 → J5S 05-23 01:40
PROVIDERS: ADMIT Internal Medicine; ATTEND Internal Medicine
DX: K57.32 Diverticulitis of large intestine without perforation or abscess without bleeding (principal); K85.90 Acute pancreatitis without necrosis or infection, unspecified; N17.9 Acute kidney failure, unspecified; R17 Unspecified jaundice; J98.11 Atelectasis; N39.0 Urinary tract infection, site not specified; R11.2 Nausea with vomiting, unspecified; J44.9 Chronic obstructive pulmonary disease, unspecified; I25.10 Atherosclerotic heart disease of native coronary artery without angina pectoris; E78.5 Hyperlipidemia, unspecified; E87.6 Hypokalemia; R74.8 Abnormal levels of other serum enzymes; D72.829 Elevated white blood cell count, unspecified; E11.9 Type 2 diabetes mellitus without complications; I95.9 Hypotension, unspecified; I10 Essential (primary) hypertension; Z86.73 Personal history of transient ischemic attack (TIA), and cerebral infarction without residual deficits; Z90.2 Acquired absence of lung [part of]; Z85.118 Personal history of other malignant neoplasm of bronchus and lung; Z99.81 Dependence on supplemental oxygen
CPT/HCPCS: 36415; 74176-TC; 76705-TC; 80053; 81003; 82150; 82465; 83605; 83690; 83718; 83721; 83735; 84100; 84478; 85025; 85027; 85610; 86850; 86900; 86901; 87040; 87086; 87186; 93005; 93010; 94640; 99284-25; J0131; J1644; J7030

== ENCOUNTER 2020-12-02 17:08 | Emergency (ER) | payer OTHER ==
[2020-12-02 17:37] VITALS: TEMP 97.9; BMI 24.2
[2020-12-02 18:55] LABS: BASO % 0.7 % (0-2.0); EOS % 1.5 % (0-4.5); HEMATOCRIT 40.6 % (32.4-45.2); HEMOGLOBIN 13.5 GM/dL (10.7-15.3); LYMPH % 21.7 % (8-40); MCH 30.6 pg (25.7-33.7); MCHC 33.3 g/dl (32.0-36.0); MEAN CELL VOLUME 91.8 fl (80-96); MEAN PLT VOLUME 8.4 fl (7.5-11.1); MONO % 6.2 % (3.8-10.2); NEUT % 69.9 % (42.8-82.8); PLATELET COUNT 286 K/MM3 (134-434); RBC 4.42 M/mm3 (3.60-5.2); RDW 13.1 % (11.6-15.6); WHITE BLOOD COUNT 6.6 K/mm3 (4.0-10.0)
[2020-12-02 19:02] LABS: INR 0.94 (0.83-1.09); PROTHROMBIN TIME (PATIENT) 11.4 SEC (9.7-13.0)
[2020-12-02 19:18] LABS: CHLORIDE 106 mmol/L (98-107); SODIUM 140 mmol/L (136-145)
[2020-12-02 19:21] LABS: ALBUMIN 3.8 g/dl (3.4-5.0); ANION GAP 5 MMOL/L (8-16); BLOOD UREA NITROGEN 12.6 mg/dL (7-18); CO2 29 mmol/L (21-32); GLUCOSE,RANDOM 110 mg/dL (74-106); MAGNESIUM 2.2 mg/dL (1.8-2.4)
[2020-12-02 19:25] LABS: CREATININE 0.9 mg/dL (0.55-1.3); SGOT/AST 23 U/L (15-37); SGPT/ALT 26 U/L (13-61)
[2020-12-02 19:27] LABS: BILIRUBIN,TOTAL 1.4 mg/dL (0.2-1)
[2020-12-02 19:28] LABS: ALK PHOS 76 U/L (45-117)
[2020-12-02 20:29] LABS: URINE APPEARANCE Clear; URINE BILIRUBIN Negative (NEGATIVE); URINE COLOR Yellow; URINE GLUCOSE (UA) Negative (NEGATIVE); URINE KETONE Negative (NEGATIVE); URINE LEUK ESTERASE Negative (NEGATIVE); URINE NITRITE Negative (NEGATIVE); URINE PROTEIN Negative (NEGATIVE); URINE UROBILINOGEN 0.2 mg/dL (0.2-1.0)
[2020-12-02 20:53] VITALS: BP 116/69; PULSE 95
== END 2020-12-03 00:24 | disposition home or self-care (01) ==
LOC: JER 17:08
PROC: 3E0333Z Introduction of Anti-inflammatory into Peripheral Vein, Percutaneous Approach (ICD-10-PCS; principal; 2020-12-02)
PROC: 3E033GC Introduction of Other Therapeutic Substance into Peripheral Vein, Percutaneous Approach (ICD-10-PCS; 2020-12-02)
PROC: 3E033GC Introduction of Other Therapeutic Substance into Peripheral Vein, Percutaneous Approach (ICD-10-PCS; 2020-12-02)
DX: R42 Dizziness and giddiness (principal)
CPT/HCPCS: 36415; 70450-TC; 71045-TC-FY; 80053; 81003; 82550; 83735; 84484; 85025; 85610; 93005; 93010; 99285-25; J0131